=== PATIENT | male | born 1965 | race Caucasian/White ===

== ENCOUNTER 2023-07-07 09:40 | Outpatient (OUT) | payer OTHER, SELFPAY ==
[2023-07-07 10:12] LABS: Basophils Absolute Auto 0.1 10^3/uL (0.0-0.1); Basophils Percent Auto 1.3 % (0.2-2.0); Eosinophils Absolute Auto 0.3 10^3/uL (0.0-0.7); Eosinophils Percent Auto 4.1 % (0.9-7.0); Hematocrit 45.4 % (42.0-54.0); Hemoglobin 15.3 g/dL (14.0-18.0); Immature Granulocytes Abs Auto 0.01 10^3/uL (0.00-0.03); Immature Granulocytes Pct Auto 0.1 % (0.0-0.5); Lymphocytes Absolute Auto 1.9 10^3/uL (1.2-3.8); Lymphocytes Percent Auto 26.4 % (20.5-60.0); Mean Corpuscular HGB Conc 33.7 g/dL (29.9-35.2); Mean Corpuscular Hemoglobin 32.6 pg (25.9-34.0); Mean Corpuscular Volume 96.6 fL (80.0-94.0); Mean Platelet Volume 9.8 fL (9.5-13.5); Monocytes Absolute Auto 0.8 10^3/uL (0.3-0.8); Monocytes Percent Auto 11.3 % (1.7-12.0); Neutrophils Percent Auto 56.8 % (43.0-75.0); Platelet Count 192 10^3/uL (150-450); Red Cell Distribution Width 12.3 % (11.0-15.0)
[2023-07-07 10:14] LABS: Bilirubin Urine NEGATIVE (NEGATIVE); Blood Urine MODERATE (NEGATIVE); Clarity Urine CLEAR (CLEAR); Color Urine LT. YELLOW (YELLOW); Glucose Urine UA NEGATIVE (NEGATIVE); Ketones Urine NEGATIVE (NEGATIVE); Leukocyte Esterase Urine NEGATIVE (NEGATIVE); Nitrite Urine NEGATIVE (NEGATIVE); Protein Urine NEGATIVE (NEG/TRACE); Specific Gravity Urine >=1.030 (1.005-1.025); Urobilinogen Urine 0.2 EU/dL (0.2-1.0)
[2023-07-07 10:21] LABS: Urine Microscopic Indicated YES
[2023-07-07 10:32] LABS: Bacteria Urine NONE SEEN #/HPF (NONE SEEN); Mucus Urine TRACE (NONE SEEN); WBC Urine NONE SEEN #/HPF (NONE SEEN)
[2023-07-07 10:33] LABS: Squamous Epithelial Cell Urine FEW #/LPF (NONE/RARE)
[2023-07-07 10:36] LABS: Creatinine Urine Random 144.38 mg/dL (20.00-300.00); Microalbum Creatinine Ratio Ur 77.5 mg/g (0.0-29.9); Microalbumin Urine Random 11.2 mg/dL (<=30.0)
[2023-07-07 10:41] LABS: Alanine Aminotransferase 28 U/L (16-63); Albumin Globulin Ratio 1.2; Albumin Level 3.9 g/dL (3.4-5.0); Alkaline Phosphatase 46 U/L (46-116); Anion Gap 11.3; Aspartate Amino Transferase 14 U/L (15-37); BUN Creatinine Ratio 18.8; Bilirubin Total 0.4 mg/dL (0.2-1.0); Calcium 8.6 mg/dL (8.5-10.1); Carbon Dioxide 30.2 mmol/L (21.0-32.0); Chloride 104 mmol/L (98-107); Chol HDL Ratio 4.9; Cholesterol 170 mg/dL (<=200); Estimated GFR (African America >60 (>=60); Estimated GFR (Non-African Ame >60 (>=60); Globulin 3.2 g/dL; Glucose 116 mg/dL (74-106); HDL Cholesterol 35 mg/dL (40-60); Potassium 4.5 mmol/L (3.5-5.1); Sodium 141 mmol/L (136-145); Total Protein 7.1 g/dL (6.4-8.2); Triglycerides 250 mg/dL (<=150)
[2023-07-07 11:08] LABS: Prostate Specific Antigen Dx 0.42 ng/mL (<=4.00)
[2023-07-08 17:41] LABS: Estimated Average Glucose 117 mg/dL; Glycohemoglobin A1C 5.7 % (4.5-6.2)
== END 2023-07-07 09:41 | disposition home or self-care (01) ==
LOC: LAB 09:44
PROVIDERS: PCP Nurse Practitioner; Visit Provider Nurse Practitioner
DX: R31.29 Other microscopic hematuria (principal); I10 Essential (primary) hypertension; R73.03 Prediabetes; E78.1 Pure hyperglyceridemia; Z12.5 Encounter for screening for malignant neoplasm of prostate
CPT/HCPCS: 36415; 80053; 80061; 81001; 82043; 82570; 83036; 84153; 85025

== ENCOUNTER 2023-07-28 09:18 | Outpatient (OUT) | payer OTHER, SELFPAY ==
--- NOTE | 2023-07-28 09:23 | US_ITS ---
The [address] [address] Patient Name: JULIETA LIZARRAGA MRN: [id number] date: 1965 Sex: M Assigned Patient Location: US Current Patient Location: US Accession/Order Number: [id number] Exam Date: 07/28/2023 09:24 Report Date: 07/28/2023 09:54 At the request of: QUENTIN UMANA Procedure: US renal BI EXAM: US renal BI HISTORY: hematuria, microscopic R31.29 COMPARISON: None. TECHNIQUE: Real-time ultrasound imaging of the kidneys and bladder. Findings: The right and left kidneys measure 11.8 and 11.1 cm. There is good corticomedullary differentiation bilaterally. There are nonobstructing left renal stones. The largest measures 0.8 cm. There does appear to be obstructing stone within the left renal pelvis measuring 1.1 cm. There is mild left-sided collecting system dilatation. No focal mass or perinephric fluid collection. The bladder is partially distended limiting its evaluation. Otherwise, the bladder appears unremarkable. US/US renal BI IMPRESSION: 1. Nonobstructing left renal stones. There is also an obstructing stone within the renal pelvis with mild resultant collecting system dilatation. Electronically authenticated by: JEANE HECTOR Date: 07/28/2023 09:54
--- OUTSIDE RECORDS SUMMARY | 2023-07-28 09:23 | XMS_ITS | CCD ---
Author Name Unknown Address [address] [facility] [address] [place] [id number] Organization [facility] Care Team Providers Care Parcel Post Clerk Name Role Phone Non-Referral, Physician Unavailable Unavaila ble Non-Referral, Physician Unavailable Unavaila ble Non-Referral, Physician Unavailable Unavaila ble AICHHOLZ, MOSAIC TILER LIZETH Admitting Unavailable AICHHOLZ, MOSAIC TILER LIZETH Primary Care Unavailable AICHHOLZ, MOSAIC TILER LIZETH Consulting Unavailable AICHHOLZ, MOSAIC TILER LIZETH Attending Unavailable AICHHOLZ, MOSAIC TILER LIZETH Admitting Unavailable AICHHOLZ, MOSAIC TILER LIZETH Primary Care Unavailable AICHHOLZ, MOSAIC TILER LIZETH Consulting Unavailable AICHHOLZ, MOSAIC TILER LIZETH Attending Unavailable Aichholz CLASSIFIER, Lizeth Unavailable Lloyd Garrison MD Primary Care Provider LIZETH VAN Attending Unavailable Medications Current Medications Medication Drug Class(es) Dates Sig (Normalized) Sig (Original) aspirin 81 mg delayed release oral tablet (4 sources) Platelet Aggregation Inhibitor, Nonsteroidal Anti-inflammatory Drug take 1 tablet by mouth in the morning aspirin 81 MG EC tablet Take 1 tablet by mouth in the morning. 0 Active docosahexaenoic acid 120 mg / eicosapentaenoic acid 180 mg oral capsule (4 sources) take 2 capsules by mouth every twelve hours omega-3 (Fish Oil) 1000 MG capsule Take 2 capsules by mouth every 12 (twelve) hours 0 Active lisinopril 40 mg oral tablet (6 sources) Angiotensin Converting Enzyme Inhibitor Start: 06-22-2023 End: 06-29-2023 take 1 tablet by mouth in the morning, then take 1 tablet by mouth once daily lisinopril 40 MG tablet Indications: Essential (primary) hypertension (CMS/HCC) Take 1 tablet (40 mg) by mouth in the morning. TAKE 1 TABLET BY MOUTH DAILY. 90 tablet 1 06/29/2023 Active metFORMIN hydrochloride 500 mg oral tablet (6 sources) Biguanide Start: 06-22-2023 End: 09-27-2023 take 1 tablet by mouth in the morning, then take 1 tablet by mouth once daily metFORMIN (Glucophage) 500 MG tablet Indications: Prediabetes Take 1 tablet (500 mg) by mouth in the morning. TAKE 1 TABLET BY MOUTH DAILY. 90 tablet 1 06/29/2023 09/27/2023 Active Turmeric extract (4 sources) take 1 capsule by mouth in the morning TURMERIC PO Take 1 capsule by mouth in the morning. 0 Active ubidecarenone 30 mg oral capsule (4 sources) take 1 capsule by mouth in the morning co-enzyme Q-10 30 MG capsule Take 1 capsule by mouth in the morning. 0 Active Problems Problem Classification Problem Date Documented Da te Episodic/Chronic Diabetes mellitus without complication (11 sources) Prediabetes; Translations: [Prediabetes] Onset: 11-26-2021 Episodic Disorders of lipid metabolism (6 sources) Hypertriglyceridemi a; Translations: [Pure hyperglyceridemia] Onset: 06-29-2023 06-29-2023 Chronic Essential hypertension (9 sources) Essential (primary) hypertension; Translations: [Benign hypertension] Onset: 11-26-2021 06-29-2023 Chronic Genitourinary symptoms and ill-defined conditions (10 sources) Unspecified abnormal findings in urine; Translations: [Microscopic hematuria] Onset: 11-24-2021 Episodic Other nutritional; endocrine; and metabolic disorders (6 sources) Body mass index 30+ - obesity; Translations: [Obesity, unspecified] Onset: 06-29-2023 06-29-2023 Chronic Other screening for suspected conditions (not mental disorders or infectious disease) (7 sources) Encounter for screening for malignant neoplasm of prostate; Translations: [Patient encounter status] Onset: 11-26-2021 06-29-2023 Episodic Other upper respiratory disease (4 sources) Mass of respiratory structure; Translations: [Other diseases of pharynx] Onset: 06-29-2023 06-29-2023 Episodic Substance-related disorders (6 sources) Tobacco dependence syndrome; Translations: [Nicotine dependence, unspecified, uncomplicated] Onset: 06-29-2023 06-29-2023 Chronic Results Test Name Value Interpretation Reference Range Facility ALL CBC WITH AUTO DIFFon BASOPHILS ABSOLUTE AUTO 0.1 [facility] Basophils/100 WBC (Bld) 1.3 % 0.2 - 2.0 % [facility] Eosinophils/100 WBC (Bld) 4.1 % 0.9 - 7.0 % [facility] Erythrocyte distribution width (RBC) [Ratio] 12.3 % 11.0 - 15.0 % [facility] Hematocrit (Bld) [Volume fraction] 45.4 % 42.0 - 54.0 % [facility] Hemoglobin (Bld) [Mass/Vol] 15.3 g/dL 14.0 - 18.0 g/dL [facility] IMMATURE GRANULOCYTES ABS AUTO 0.01 [facility] Immature granulocytes/100 WBC (Bld) 0.1 % 0.0 - 0.5 % [facility] Interpretation and review of laboratory results Abnormal [facility] LYMPHOCYTES ABSOLUTE AUTO 1.9 [facility] Lymphocytes/100 WBC (Bld) 26.4 % 20.5 - 60.0 % [facility] MCH (RBC) [Entitic mass] 32.6 pg 25.9 - 34.0 pg [facility] MCHC (RBC) [Mass/Vol] 33.7 g/dL 29.9 - 35.2 g/dL [facility] MCV (RBC) [Entitic vol] 96.6 fL High 80.0 - 94.0 fL [facility] MONOCYTES ABSOLUTE AUTO 0.8 [facility] Monocytes/100 WBC (Bld) 11.3 % 1.7 - 12.0 % [facility] NEUTROPHILS ABSOLUTE AUTO 4.0 [facility] Neutrophils/100 WBC (Bld) 56.8 % 43.0 - 75.0 % [facility] Platelet mean volume (Bld) [Entitic vol] 9.8 fL 9.5 - 13.5 fL [facility] are [facility] EO # 0.3 [facility] PLT 192 [facility] RBC 4.70 [facility] WBC 7.0 [facility] GLYCOHEMOGLOBIN A1Con 2022 ADA RECOMMENDATION SEE BELOW Normal [facility] Comment on above: Result Comment: ADA RECOMMENDED LIMIT 4.0 - 6.0 ADA THERAPEUTIC TARGET < 7.0 ACTION SUGGESTED > 7.0 Performed By: #### A 1C #### [facility] [address] [place] [address] Dr. Abbi Porter Glucose [Mass/Vol] 114 mg/dL Normal [facility] Comment on above: Performed By: #### A 1C #### [facility] [address] [place] [address] Dr. Abbi Porter HbA1c (Bld) [Mass fraction] 5.6 % Normal 4.5-6.2 [facility] Comment on above: Performed By: #### A 1C #### [facility] [address] [place] [address] Dr. Abbi Porter CBC AUTO DIFFon 11-24-2021 BASO # 0.1 103/ul Normal 0.0-0.1 [facility] Comment on above: Performed By: #### C BC #### [facility] [address] [place] [address] Dr. Abbi Porter Basophils/100 WBC (Bld) 1.1 % Normal 0.2-2.0 [facility] Comment on above: Performed By: #### C BC #### [facility] [address] [place] [address] Dr. Abbi Porter EO # 0.2 103/ul Normal 0.0-0.7 [facility] Comment on above: Performed By: #### C BC #### [facility] [address] [place] [address] Dr. Abbi Porter Eosinophils/100 WBC (Bld) 3.7 % Normal 0.9-7.0 [facility] Comment on above: Performed By: #### C BC #### [facility] [address] [place] [address] Dr. Abbi Porter Erythrocyte distribution width (RBC) [Ratio] 12.8 % Normal 11.0-15.0 [facility] Comment on above: Performed By: #### C BC #### [facility] [address] [place] [address] Dr. Abbi Porter Hematocrit (Bld) [Volume fraction] 44.8 % Normal 42.0-54.0 [facility] Comment on above: Performed By: #### C BC #### [facility] [address] [address] [address] Abbi Porter Hemoglobin (Bld) [Mass/Vol] 15.3 g/dL Normal 14.0-18.0 [facility] Comment on above: Performed By: #### C BC #### [facility] [address] [address] [address] Abbi Porter IG # 0.01 10e3/ul Normal 0.00-0.03 [facility] Comment on above: Performed By: #### C BC #### [facility] [address] [place] [address] Dr. Abbi Porter IG % 0.2 % Normal 0.0-0.5 [facility] Comment on above: Performed By: #### C BC #### [facility] [address] [place] [address] Dr. Abbi oPrter LYMPH # 1.9 103/ul Normal 1.2-3.8 [facility] Comment on above: Performed By: #### C BC #### [facility] [address] [place] [address] Dr. Abbi Porter Lymphocytes/100 WBC (Bld) 28.4 % Normal 20.5-60.0 [facility] Comment on above: Performed By: #### C BC #### [facility] [address] [place] [address] Dr. Abbi Porter MANUAL DIFF REQ NO Normal [facility] Comment on above: Performed By: #### C BC #### [facility] [address] [place] [address] Dr. Abbi Porter MCH (RBC) [Entitic mass] 33.0 pg Normal 25.9-34.0 [facility] Comment on above: Performed By: #### C BC #### [facility] [address] [place] [address] Dr. Abbi Porter MCHC (RBC) [Mass/Vol] 34.2 g/dL Normal 29.9-35.2 [facility] Comment on above: Performed By: #### C BC #### [facility] [address] [address] [address] Abbi Porter MCV (RBC) [Entitic vol] 96.6 fL Critically high 80.0-94.0 [facility] Comment on above: Performed By: #### C BC #### [facility] [address] [address] [address] Abbi Porter MONO # 0.7 103/ul Normal 0.3-0.8 [facility] Comment on above: Performed By: #### C BC #### [facility] [address] [address] [address] Abbi Porter Monocytes/100 WBC (Bld) 10.7 % Normal 1.7-12.0 [facility] Comment on above: Performed By: #### C BC #### [facility] [address] [address] [address] Abbi Porter NEUT # 3.7 103/ul Normal 1.4-6.5 [facility] Comment on above: Performed By: #### C BC #### [facility] [address] [address] [address] Abbi Porter Neutrophils/100 WBC (Bld) 55.9 % Normal 43.0-75.0 [facility] Comment on above: Performed By: #### C BC #### [facility] [address] [address] [address] Abbi Porter Platelet mean volume (Bld) [Entitic vol] 10.6 fL Normal 9.5-13.5 [facility] Comment on above: Performed By: #### C BC #### [facility] [address] [address] [address] Abbi Porter PLT 233 103/ul Normal 150-450 [facility] Comment on above: Performed By: #### C BC #### [facility] [address] [address] [address] Abbi Porter RBC 4.64 106/ul Critically low 4.70-6.10 [facility] Comment on above: Performed By: #### C BC #### [facility] [address] [place] [address] Dr. Abbi Porter WBC 6.6 103/ul Normal 4.0-11.0 [facility] Comment on above: Performed By: #### C BC #### [facility] [address] [place] [address] Dr. Abbi Porter CULTURE URINEon 11-24-2021 CULTURE URINE Culture Observations: NO GROWTH. Normal [facility] Comment on above: Performed By: #### U RCX #### [facility] [address] [place] [address] Dr. Abbi Porter GLYCOHEMOGLOBIN A1Con 2021 ADA RECOMMENDATION SEE BELOW Normal [facility] Comment on above: Result Comment: ADA RECOMMENDED LIMIT 4.0 - 6.0 ADA THERAPEUTIC TARGET < 7.0 ACTION SUGGESTED > 7.0 Performed By: #### A 1C #### [facility] [address] [place] [address] Dr. Abbi Porter Glucose [Mass/Vol] 117 mg/dL Normal [facility] Comment on above: Performed By: #### A 1C #### [facility] [address] [place] [address] Dr. Abbi Porter HbA1c (Bld) [Mass fraction] 5.7 % Normal 4.5-6.2 [facility] Comment on above: Performed By: #### A 1C #### [facility] [address] [place] [address] Dr. Abbi Porter MICROALBUMIN, RAND URon 10-28 mALB 8.3 mg/L Normal <=30.0 [facility] Comment on above: Performed By: #### M ALBR #### [facility] [address] [place] [address] Dr. Abbi Porter PROF 14(COMP METB)on 022 Albumin [Mass/Vol] 4.2 g/dL Normal 3.4-5.0 [facility] Comment on above: Performed By: #### C MP #### [facility] [address] [place] [address] Dr. Abbi Porter Albumin/Globulin [Mass ratio] 1.4 {ratio} Normal [facility] Comment on above: Performed By: #### C MP #### [facility] [address] [address] [address] Abbi Porter ALP [Catalytic activity/Vol] 66 U/L Normal 46-116 [facility] Comment on above: Performed By: #### C MP #### [facility] [address] [address] [address] Abbi Porter ALT [Catalytic activity/Vol] 34 U/L Normal 16-63 [facility] Comment on above: Performed By: #### C MP #### [facility] [address] [address] [address] Abbi Porter Anion gap [Moles/Vol] 14.2 mmol/L Normal [facility] Comment on above: Performed By: #### C MP #### [facility] [address] [place] [address] Dr. Abbi Porter AST [Catalytic activity/Vol] 19 U/L Normal 15-37 [facility] Comment on above: Performed By: #### C MP #### [facility] [address] [place] [address] Dr. Abbi Porter Bilirubin [Mass/Vol] 0.4 mg/dL Normal 0.2-1.0 [facility] Comment on above: Performed By: #### C MP #### [facility] [address] [place] [address] Dr. Abbi Porter Calcium [Mass/Vol] 9.2 mg/dL Normal 8.5-10.1 [facility] Comment on above: Performed By: #### C MP #### [facility] [address] [place] [address] Dr. Abbi Porter Chloride [Moles/Vol] 103 mmol/L Normal 98-107 [facility] Comment on above: Performed By: #### C MP #### [facility] [address] [place] [address] Dr. Abbi Porter CO2 [Moles/Vol] 29.9 mmol/L Normal 21.0-32.0 [facility] Comment on above: Performed By: #### C MP #### [facility] [address] [address] [address] Abbi Porter Creatinine [Mass/Vol] 0.95 mg/dL Normal 0.70-1.30 [facility] Comment on above: Performed By: #### C MP #### [facility] [address] [address] [address] Abbi Porter EGFR-AF STATELESS >60 Normal >=60 [facility] Comment on above: Performed By: #### C MP #### [facility] [address] [address] [address] Abbi Porter EGFR-NON AF STATELESS >60 Normal >=60 [facility] Comment on above: Performed By: #### C MP #### [facility] [address] [place] [address] Dr. Abbi Porter Globulin (S) [Mass/Vol] 3.1 g/dL Normal [facility] Comment on above: Performed By: #### C MP #### [facility] [address] [place] [address] Dr. Abbi Porter Glucose [Mass/Vol] 111 mg/dL Critically high 74-106 [facility] Comment on above: Performed By: #### C MP #### [facility] [address] [place] [address] Dr. Abbi Porter Potassium [Moles/Vol] 4.1 mmol/L Normal 3.5-5.1 [facility] Comment on above: Performed By: #### C MP #### [facility] [address] [place] [address] Dr. Abbi Porter Protein [Mass/Vol] 7.3 g/dL Normal 6.4-8.2 [facility] Comment on above: Performed By: #### C MP #### [facility] [address] [place] [address] Dr. Abbi Porter Sodium [Moles/Vol] 143 mmol/L Normal 136-145 [facility] Comment on above: Performed By: #### C MP #### [facility] [address] [place] [address] Dr. Abbi Porter Urea nitrogen [Mass/Vol] 19.0 mg/dL Critically high 7.0-18.0 [facility] Comment on above: Performed By: #### C MP #### [facility] [address] [place] [address] Dr. Abbi Porter Urea nitrogen/Creatinine [Mass ratio] 20.0 mg/mg Normal [facility] Comment on above: Performed By: #### C MP #### [facility] [address] [address] [address] Abbi Porter UA RANDOM W/MICROSCOPICon BACTERIA NONE SEEN Normal NONE SEEN [facility] Comment on above: Performed By: #### U AMIC #### [facility] [address] [place] [address] Dr. Abbi Porter Bilirubin Ql (U) Negative Normal NEGATIVE [facility] Comment on above: Performed By: #### U AMIC #### [facility] [address] [place] [address] Dr. Abbi Porter CAST NONE SEEN Normal NONE SEEN [facility] Comment on above: Performed By: #### U AMIC #### [facility] [address] [place] [address] Dr. Abbi Porter Clarity (U) CLEAR Normal CLEAR [facility] Comment on above: Performed By: #### U AMIC #### [facility] [address] [place] [address] Dr. Abbi Porter Color (U) LT. YELLOW Normal YELLOW [facility] Comment on above: Performed By: #### U AMIC #### [facility] [address] [place] [address] Dr. Abbi Porter Crystals LM Nom (Urine sed) NONE SEEN Normal NONE SEEN [facility] Comment on above: Performed By: #### U AMIC #### [facility] [address] [place] [address] Dr. Abbi Porter Epithelial cells LM Ql (Urine sed) FEW Abnormal NONE SEEN /RARE [facility] Comment on above: Performed By: #### U AMIC #### [facility] [address] [place] [address] Dr. Abbi Porter Glucose Ql (U) Negative Normal NEGATIVE [facility] Comment on above: Performed By: #### U AMIC #### [facility] [address] [address] [address] Abbi Porter Hemoglobin Ql (U) LARGE Abnormal NEGATIVE [facility] Comment on above: Performed By: #### U AMIC #### [facility] [address] [address] [address] Abbi Porter Ketones Ql (U) Negative Normal NEGATIVE [facility] Comment on above: Performed By: #### U AMIC #### [facility] [address] [address] [address] Abbi Porter LEUKOCYTES TRACE Abnormal NEGATIVE [facility] Comment on above: Performed By: #### U AMIC #### [facility] [address] [address] [address] Abbi Porter MUCOUS NONE SEEN Normal NONE SEEN [facility] Comment on above: Performed By: #### U AMIC #### [facility] [address] [address] [address] Abbi Porter Nitrite Ql (U) Negative Normal NEGATIVE [facility] Comment on above: Performed By: #### U AMIC #### [facility] [address] [address] [address] Abbi Porter pH (U) 5.5 [pH] Normal 5-9 [facility] Comment on above: Performed By: #### U AMIC #### [facility] [address] [address] [address] Abbi Porter RBC 0-2 Normal 0-2 [facility] Comment on above: Performed By: #### U AMIC #### [facility] [address] [address] [address] Abbi Porter SPEC GRAVITY 1.025 Normal 1.005-<=1.025 [facility] Comment on above: Performed By: #### U AMIC #### [facility] [address] [address] [address] Abbi Porter UA PROTEIN Negative Normal NEGATIVE/ TRACE [facility] Comment on above: Performed By: #### U AMIC #### [facility] [address] [address] [address] Abbi Porter Urobilinogen Qn (U) 0.2 {Candice'U}/dL Normal 0.2 - 1. 0 [facility] Comment on above: Performed By: #### U AMIC #### [facility] [address] [address] [address] Abbi Porter WBC 10-20 Abnormal NONE SEEN [facility] Comment on above: Performed By: #### U AMIC #### [facility] [address] [address] [address] Abbi Porter AMYLASEon 06-04-2019 Amylase [Catalytic activity/Vol] 86 U/L Normal 28-100 [facility] Comment on above: Performed By: #### 4 [id number] #### [address] [address] CBC and diff (cpt 56804)on 0 06-04-2019 Basophils (Bld) [#/Vol] 0.03 10*3/uL Normal 0.00-0.07 [facility] Comment on above: Performed By: #### 4 [id number] #### [address] [address] Basophils/100 WBC (Bld) 0.4 % Normal 0.0-2.0 [facility] Comment on above: Performed By: #### 4 [id number] #### [address] [address] Eosinophils (Bld) [#/Vol] 0.21 10*3/uL Normal 0.00-0.47 [facility] Comment on above: Performed By: #### 4 [id number] #### [address] [address] Eosinophils/100 WBC (Bld) 2.7 % Normal 0.0-7.0 [facility] Comment on above: Performed By: #### 4 [id number] #### [address] [address] Erythrocyte distribution width (RBC) [Ratio] 13.1 % Normal 11.5-14.0 [facility] Comment on above: Performed By: #### 4 [id number] #### [address] [address] Hematocrit (Bld) [Volume fraction] 42.2 % Normal 36.0-52.0 [facility] Comment on above: Performed By: #### 4 [id number] #### [address] [address] Hemoglobin (Bld) [Mass/Vol] 14.6 g/dL Normal 12.2-18.0 [facility] Comment on above: Performed By: #### 4 [id number] #### [address] [address] Immature granulocytes (Bld) [#/Vol] 0.02 10*3/uL Normal 0.00-0.06 [facility] Comment on above: Performed By: #### 4 #### [address] [address] Immature granulocytes/100 WBC (Bld) 0.3 % Normal 0.0-1.0 [facility] Comment on above: Performed By: #### 4 [id number] #### [address] [address] Lymphocytes (Bld) [#/Vol] 2.10 10*3/uL Normal 0.98-3.82 [facility] Comment on above: Performed By: #### 4 [id number] #### [address] [address] Lymphocytes/100 WBC (Bld) 27.5 % Normal 20.0-45.0 [facility] Comment on above: Performed By: #### 4 [id number] #### [address] [address] MCH (RBC) [Entitic mass] 32.4 pg Normal 27.0-34.0 [facility] Comment on above: Performed By: #### 4 [id number] #### [address] [address] MCHC (RBC) [Mass/Vol] 34.6 g/dL Normal 33.0-37.0 [facility] Comment on above: Performed By: #### 4 #### [address] [address] MCV (RBC) [Entitic vol] 94 fL Normal 80-100 [facility] Comment on above: Performed By: #### 4 #### [address] [address] Monocytes (Bld) [#/Vol] 0.64 10*3/uL Normal 0.28-0.96 [facility] Comment on above: Performed By: #### 4 [id number] #### [address] [address] Monocytes/100 WBC (Bld) 8.4 % Normal 2.0-12.0 [facility] Comment on above: Performed By: #### 4 [id number] #### [address] [address] Neutrophils (Bld) [#/Vol] 4.64 10*3/uL Normal 1.67-7.79 [facility] Comment on above: Performed By: #### 4 #### [address] [address] Neutrophils/100 WBC (Bld) 60.7 % Normal 40.0-65.0 [facility] Comment on above: Performed By: #### 4 #### [address] [address] Platelets (Bld) [#/Vol] 185 10*3/uL Normal 120-400 [facility] Comment on above: Performed By: #### 4 #### [address] [address] RBC (Bld) [#/Vol] 4.51 10*6/uL Normal 4.00-5.70 [facility] Comment on above: Performed By: #### 4 [id number] #### [address] [address] WBC (Bld) [#/Vol] 7.64 10*3/uL Normal 3.80-10.00 [facility] Comment on above: Performed By: #### 4 [id number] #### [address] [address] COMPREHENSIVE MET PANELon Albumin [Mass/Vol] 4.50 g/dL Normal 3.50-5.20 [facility] Comment on above: Performed By: #### 4 [id number] #### [address] [address] Albumin/Globulin [Mass ratio] 1.7 Normal 0.8-2.4 [facility] Comment on above: Performed By: #### 4 [id number] #### [address] [address] ALP [Catalytic activity/Vol] 60 U/L Normal 40-130 [facility] Comment on above: Performed By: #### 4 [id number] #### [address] [address] ALT No additional P-5'-P [Catalytic activity/Vol] 30 [iU]/L Normal <41 [facility] Comment on above: Performed By: #### 4 [id number] #### [address] [address] Anion gap [Moles/Vol] 17 mmol/L Normal 9-20 [facility] Comment on above: Performed By: #### 4 [id number] #### [address] [address] AST [Catalytic activity/Vol] 24 U/L Normal <40 [facility] Comment on above: Performed By: #### 4 [id number] #### [address] [address] Bilirubin [Mass/Vol] 0.19 mg/dL Normal <1.20 [facility] Comment on above: Performed By: #### 4 [id number] #### [address] [address] Calcium [Mass/Vol] 9.5 mg/dL Normal 8.6-10.0 [facility] Comment on above: Performed By: #### 4 [id number] #### [address] [address] Chloride [Moles/Vol] 101.3 mmol/L Normal 98.0-107.0 [facility] Comment on above: Performed By: #### 4 [id number] #### [address] [address] Creatinine [Mass/Vol] 0.88 mg/dL Normal 0.67-1.17 [facility] Comment on above: Performed By: #### 4 [id number] #### [address] [address] GFR/1.73 sq M.predicted MDRD (S/P/Bld) [Vol rate/Area] mL/min/{1.73_m2} Normal [facility] Comment on above: Result Comment: Glom erular Filtration Rate (eGFR) eGFR units: mL/min/1.73 m^2 Reference Value: >/= 60 mL/min/1.73 m^2 For patients, multiply the eGFR by 1.212 . The MDRD eGFR equation has not been validated for patients < 18 yrs or > 70 yrs of age and is useful only if renal function is stable. The eGFR is not recommended for women, patients with serious co-morbid conditions, hospitalized patients, obese or malnourished patients, amputees, those with muscle-wasting diseases or on a vegetarian diet or diet supplemented with creatine. For more information, go to www.kidney.org or www. niddk.nih.gov Performed By: #### 4 [id number] #### [address] [address] Glucose [Mass/Vol] 123 mg/dL High 74-106 [facility] Comment on above: Performed By: #### 4 [id number] #### [address] [address] HCO3 [Moles/Vol] 25.2 mmol/L Normal 22.0-29.0 [facility] Comment on above: Performed By: #### 4 [id number] #### [address] [address] Potassium [Moles/Vol] 4.71 mmol/L Normal 3.40-5.10 [facility] Comment on above: Performed By: #### 4 [id number] #### [address] [address] Protein [Mass/Vol] 7.1 g/dL Normal 6.4-8.3 [facility] Comment on above: Performed By: #### 4 [id number] #### [address] [address] Sodium [Moles/Vol] 139 mmol/L Normal 136-145 [facility] Comment on above: Performed By: #### 4 [id number] #### [address] [address] Urea nitrogen [Mass/Vol] 16.4 mg/dL Normal 6.0-20.0 [facility] Comment on above: Performed By: #### 4 [id number] #### [address] [address] CRP (inflammation) cpt 45608 on 06-04-2019 CRP [Mass/Vol] 5.7 mg/L High <5.0 [facility] Comment on above: Performed By: #### 4 [id number] #### [address] [address] [address] ABD PELVISon 06-04-2019 CT ABD PELVIS ---------NAME------- -- NUMBER SEX AGE ADMIT DISC. XRAY# F/C TYPE ZIA Yeung [id number] M 54 06/04/19 [id number] [facility] E/R DATE OF : 1965 M/R# [id number] #: [id number] ED-06 LOCATION: EMERGENCY DEPT TRANSCRIBED: 06/04/19 12:[address] ABD PELVIS [id number] COMPLETED:06/04/19 12:21 KLK [id number] Reason(s): Abdominal Pain Flank Pain PHYSICIAN: BON UMAÑA PHYS W A Y N E H E A L T H C A R E R A D I O L O G Y R E P O R T [address] [place] [address] PROCEDURE: CT ABD PELVIS DATE OF EXAM: 06/04/2019 12:02 PM DEMOGRAPHICS: 54 years old Male INDICATION: REASON(S): ABDOMINAL PAIN FLANK PAIN CT ABD PELVIS COMPARISON: No existing relevant imaging study corresponding to the same anatomical region is available. TECHNIQUE: Contiguous axial slices of the abdomen and pelvis were submitted without IV administration of contrast. No oral contrast was utilized. Additional coronal reformatted images were submitted. DOSE OPTIMIZATION: CT radiation dose optimization techniques (automated exposure control, and use of iterative reconstruction techniques, or adjustment of the mA and/or kV according to patient size) were used to limit patient radiation dose. FINDINGS: CT ABDOMEN: Inferior chest: The lung bases are clear. The heart size is normal. There is no pericardial or pleural effusion. Gallbladder: The gallbladder is distended with a smooth thin wall. Biliary tree: There is no evidence for intra-or extrahepatic biliary ductal dilatation. Liver: There is hypoattenuation identified in the hepatic parenchyma. No focal abnormality is seen. Spleen: Normal size and morphology is seen. No masses are identified. Pancreas: Normal morphology without masses or inflammatory changes. Adrenals: Normal size without masses. Kidneys: There is mild left hydronephrosis. There is a radiopaque calculus identified at the level of the left ureteropelvic junction as seen on axial image #37 of series #2 measuring 5 mm in diameter. Vasculature: There is vascular calcification. Lymphatic system: No pathologically enlarged lymph nodes are seen. Bowel: The stomach is normally distended with no focal wall abnormality. The duodenum is normal in caliber along its course. No focal abnormality is seen. The small bowel is normal caliber. There is no focal stricture or dilatation. The colon is normal in caliber. No focal abnormality is seen. The appendix is seen and is normal. Peritoneal structures: No evidence of free air or free fluid. No masses. The omentum and small bowel mesentery are normal. Retroperitoneum: No focal retroperitoneal abnormality is seen. Abdominal wall: There is evidence for a fat-containing umbilical hernia. CT PELVIS: Urinary bladder: The urinary bladder is distended with a smooth thin wall. No focal abnormalities are seen. Soft tissues: No other significant abnormalities in the pelvic structures. No free fluid or lymphadenopathy. The ischiorectal fossa and inguinal regions are normal. Bones: Mild degenerative changes are seen in the lumbar spine. IMPRESSION: 1. There is obstructive uropathy on the left related to a 5 mm calculus at the left ureteropelvic junction causing mild left hydronephrosis 2. Hepatic steatosis 3. Fat-containing umbilical hernia This dictation was created with voice recognition software. While attempts have been made to review the dictation as it is transcribed, on occasion the spoken word can be misinterpreted by the technology leading to omissions or inappropriate words, phrases or sentences. Signed By : HERNAN LAMBERT MD 06/04/2019 12:36 PM Normal [facility] LIPASEon 06-04-2019 Lipase [Catalytic activity/Vol] 38 U/L Normal 13-60 [facility] Comment on above: Performed By: #### 4 [id number] #### [place] [address] URINALYSIS reflex CULTUREon 06-04-2019 Bacteria LM Ql (Urine sed) TRACE Abnormal NONE SEEN [facility] Comment on above: Performed By: #### 4 [id number] #### [place] [address] Bilirubin Ql (U) Negative Normal NEGATIVE [facility] Comment on above: Performed By: #### 4 [id number] #### [address] [address] Clarity Refractometry automated (U) CLEAR Normal CLEAR [facility] Comment on above: Performed By: #### 4 [id number] #### [address] [address] Color (U) YELLOW Normal YELLOW [facility] Comment on above: Performed By: #### 4 [id number] #### [place] [address] Epithelial cells.squamous LM.HPF (Urine sed) [#/Area] 7-10 Normal [facility] Comment on above: Performed By: #### 4 [id number] #### [address] [address] Glucose Ql (U) 250 mg/dL Abnormal NEGATIVE [facility] Comment on above: Performed By: #### 4 [id number] #### [address] [address] Hemoglobin Auto test strip Ql (U) MODERATE Abnormal NEGATIVE [facility] Comment on above: Performed By: #### 4 [id number] #### [address] [address] Ketones Ql (U) Negative Normal NEGATIVE [facility] Comment on above: Performed By: #### 4 [id number] #### [place] [id number] Leukocyte esterase Auto test strip Ql (U) Negative Normal NEGATIVE [facility] Comment on above: Performed By: #### 4 [id number] #### [place] [address] Mucus Ql (Urine sed) 1+ [LPF] Normal [facility] Comment on above: Performed By: #### 4 [id number] #### [place] [address] Nitrite Ql (U) Negative Normal NEGATIVE [facility] Comment on above: Performed By: #### 4 [id number] #### [place] [address] pH (U) 5.5 Normal 5-8 [facility] Comment on above: Performed By: #### 4 [id number] #### [place] [address] Protein Ql (U) Negative Normal NEGATIVE [facility] Comment on above: Performed By: #### 4 [id number] #### [place] [address] RBC LM.HPF (Urine sed) [#/Area] 15-20 Abnormal 0-2 [facility] Comment on above: Performed By: #### 4 [id number] #### [place] [address] Specific gravity (U) [Rel density] >=1.030 Abnormal <=1.005-1.025 [facility] Comment on above: Performed By: #### 4 [id number] #### [place] [address] Type of Urine collection method CLEAN CATCH-CC Normal [facility] Comment on above: Performed By: #### 4 [id number] #### [place] [address] URINALYSIS reflex CULTURE [facility] Comment on above: Result Comment: URIN ALYSIS with Reflex to CULTURE Performed By: #### 4 [id number] #### [place] [address] Urobilinogen Test strip Ql (U) 0.2 {EhrlichU}/dL Normal 0.2-1.0 [facility] Comment on above: Performed By: #### 4 [id number] #### [place] [address] WBC LM.HPF (Urine sed) [#/Area] 4-6 Abnormal 0-3 [facility] Comment on above: Performed By: #### 4 [id number] #### [facility] [address] [place] [address] Vital Signs Date Time Vital Sign Value Performing Clinician Jagruti montilla 06-29-2023 18:14-0500 Body height 172.7 cm Lizethkemar Delatorreshilpiz CLASSIFIER Work Phone: [facility] 06-29-2023 18:14-0500 Body mass index (BMI) [Ratio] 32.39 kg/m2 Lizeth Lucretiaholz CLASSIFIER Work Phone: [facility] 06-29-2023 18:14-0500 Body temperature 97.5 [degF] Lizeth Lucretiaholz CLASSIFIER Work Phone: [facility] 06-29-2023 18:14-0500 Body weight 96.62 kg Lizethkemar Boykinholz CLASSIFIER Work Phone: [facility] 06-29-2023 18:14-0500 Diastolic blood pressure 70 mm[Hg] Lizeth Juan Ramonhholz CLASSIFIER Work Phone: [facility] 06-29-2023 18:14-0500 Heart rate 80 /min Lizeth Juan Ramonhholz CLASSIFIER Work Phone: [facility] 06-29-2023 18:14-0500 Respiratory rate 19 /min Lizeth Lucretiaholz CLASSIFIER Work Phone: [facility] 06-29-2023 18:14-0500 SaO2% (BldA) [Mass fraction] 96 % Lizeth Lucretiaholz CLASSIFIER Work Phone: [facility] 06-29-2023 18:14-0500 Systolic blood pressure 120 mm[Hg] Lizeth Aichholz CLASSIFIER Work Phone: [facility] Healthcare Encounters Encounter Date Encounter Type Care Provider Facility Start: 07-07-2023 Clinisync Result Encounter Lizeth Rehan CLASSIFIER Work Phone: [facility] External Department Unsolicited Start: 07-07-2023 Clinisync Result Encounter Lizethkemar Van CLASSIFIER Work Phone: [facility] External Department Unsolicited Start: 06-29-2023 End: 06-29-2023 ambulatory LIZETH REHAN Not Available Start: 06-29-2023 End: 06-29-2023 Office outpatient visit 25 minutes Lizeth Van CLASSIFIER Work Phone: [facility] Comment on above: Hypertension, benign (CMS/HCC) (Primary Dx); Hematuria, microscopic; Prediabetes; BMI 32.0-32.9,adult; Hypertriglyceridemia (CMS/HCC); Tobacco dependence; Screening for prostate cancer; Essential (primary) hypertension (CMS/HCC) Start: 06-29-2023 Bamboo flowsheet Lizeth Van CLASSIFIER Work Phone: [facility] Start: 06-29-2023 Bamboo flowsheet Lizeth Van CLASSIFIER Work Phone: [facility] Start: 06-23-2022 End: 06-24-2022 ambulatory OUSMANE VAN Facility:[facility] Start: 11-24-2021 End: 11-25-2021 ambulatory MOSAIC TILER LIZETH VAN Facility:[facility] Start: 11-20-2017 Ambulatory Physician Non-Referral [facility] Procedures Date Procedure Procedure Detail Performing Clinician Start: 07-07-2023 ALL CBC WITH AUTO DIFF Lizeth Van CLASSIFIER Work Phone: Start: 11-24-2021 PSA screening OUSMANE VAN Comment on above: Performed By: #### P [facility] #### [facility] [address] [place] [address] Dr. Abbi Porter Plan of Treatment Date Care Activity Detail Author Start: 02-27-2024 Screening for malignant neoplasm of colon [facility] Start: 01-01-2024 End: 01-01-2024 Patient encounter procedure 01/01/2024 7:20 PM EDT Office Visit [facility] [address] [place] [id number] Lizeth Van NP [address] [place] [id number] [facility] Start: 06-29-2023 End: 06-29-2023 Patient encounter procedure 06/29/2023 6:15 PM EST Office Visit [facility] [address] [place] [address] Lizeth Van NP [address] [place] [address] Hypertension, benign (CMS/HCC) (Primary Dx); Hematuria, microscopic; Prediabetes; Obesity with body mass index (BMI) of 30.0 to 39.9; Hypertriglyceridemia (CMS/HCC); Tobacco dependence; Screening for prostate cancer [facility] Comment on above: Hypertension, benign (CMS/HCC) (Primary Dx); Hematuria, microscopic; Prediabetes; Obesity with body mass index (BMI) of 30.0 to 39.9; Hypertriglyceridemia (CMS/HCC); Tobacco dependence; Screening for prostate cancer Start: 06-29-2023 End: 06-29-2024 CBC W Auto Differential panel - Blood CBC and differential Lab Routine Hematuria, microscopic Expected: 06/29/2023 (Approximate), Expires: 06/29/2024 [facility] Work Phone: Comment on above: Expected: 06/29/2023 (Approximate), Expi res: 06/29/2024 Start: 06-29-2023 End: 06-29-2024 Comprehensive metabolic 2000 panel - Serum or Plasma Comprehensive metabolic panel Lab Routine Hypertension, benign (CMS/HCC) Hematuria, microscopic Prediabetes Hypertriglyceridemia (CMS/HCC) Expected: 06/29/2023 (Approximate), Expires: 06/29/2024 [facility] Comment on above: Expected: 06/29/2023 (Approximate), Expi res: 06/29/2024 Start: 06-29-2023 End: 06-29-2024 Lipid 1996 panel - Serum or Plasma Lipid panel Lab Routine Prediabetes Hypertriglyceridemia (CMS/HCC) Expected: 06/29/2023 (Approximate), Expires: 06/29/2024 [facility] Comment on above: Expected: 06/29/2023 (Approximate), Expi res: 06/29/2024 Start: 06-29-2023 End: 06-29-2024 Microalbumin/Creatinin e panel in random Urine Microalbumin / creatinine, urine ratio Lab Routine Hypertension, benign (CMS/HCC) Prediabetes Expected: 06/29/2023 (Approximate), Expires: 06/29/2024 [facility] Comment on above: Expected: 06/29/2023 (Approximate), Expi res: 06/29/2024 Start: 06-29-2023 End: 06-29-2024 Prostate specific Ag [Mass/volume] in Serum or Plasma PSA Lab Routine Screening for prostate cancer Expected: 06/29/2023 (Approximate), Expires: 06/29/2024 [facility] Comment on above: Expected: 06/29/2023 (Approximate), Expi res: 06/29/2024 Start: 06-29-2023 End: 06-29-2024 Urinalysis complete panel - Urine Urinalysis with reflex microscopic (clean catch) Lab Routine Hypertension, benign (CMS/HCC) Hematuria, microscopic Prediabetes Expected: 06/29/2023 (Approximate), Expires: 06/29/2024 [facility] Comment on above: Expected: 06/29/2023 (Approximate), Expi res: 06/29/2024 Start: 01-27-2023 Influenza vaccination Influenza Vaccine (#1) [facility] Start: 1965 Screening for malignant neoplasm of colon [facility] Payers Date Payer Category Payer Unknown BCBS BCBS xxxxxx [id number] 2018-Present [phone] [address] [place] [address] [id number] 1965 Unknown [id number] 1965 Unknown [id number] 1965 Unknown [id number] 1957 Unknown [id number] Social History Date Type Detail Facility Tobacco smoking status [facility]PO[place] [place] tobacco dipper smoking consumption unknown [facility] Start: 06-22-2023 End: 06-29-2023 [facility] Start: 06-22-2023 End: 06-29-2023 Humiliation, Afraid, Rape, and Kick questionnaire [HARK] [facility] Within the last year , have you been afraid of your partner or ex-partner? No [facility] Do you belong to any clubs or organizations such as congregational groups, unions, [employer] ([place]) or athletic groups, or school groups? Yes [facility] Are you now , , , , never or living with a partner? [facility] How often to you hav e a drink containing alcohol? 2-4 times a month [facility] How many standard dr inks containing alcohol do you have on a typical day? 3 or 4 [facility] How often do you hav e 6 or more drinks on 1 occasion? Less than monthly [facility] How hard is it for y ou to pay for the very basics like food, housing, medical care, and heating Not hard at all [facility] Do you feel stress - tense, restless, nervous, or anxious, or unable to sleep at night because your mind is troubled all the time - these days [OSQ] Not at all [facility] (I/We) worried sandy er (my/our) food would run out before (I/we) got money to buy more. Never true [facility] Start: 1965 Sex Assigned At Not on file [facility] Start: 06-15-2023 Gender identity Identifies as male gender (finding) [facility] Start: 06-29-2023 Tobacco smoking status NVIS Smokes t obacco daily [facility] History of tobacco use Cigarette Smoker [facility] Start: 06-29-2023 Tobacco use and exposure Smoke less tobacco non-user [facility] Start: 06-29-2023 Alcohol intake Ex-drinker (finding) [facility] Start: 06-29-2023 Alcohol Comment caffine: richard e 2-3 daily [facility] Healthcare History of Present illness Narrative 06-29-2023 Lizeth Van NP - 06/29/2023 6:46 PM Asif Van NP - 06/29/2023 6:45 PM RYAN BRIZUELA - 06/29/2023 6:15 PM Asif Van NP - 06/29/2023 6:15 PM EST Note Date & Type Note Facility 06-29-2023 History of Presen t illness Narrative Associated Problem(s): Prediabetes Check blood sugars daily, notify if <70 or >200. Take medications (pills or insulin) as directed. Monitor for s/s of hypoglycemia (sweaty, dizziness, nausea, vomiting, or shakiness). Watch for increase in thirst, urination, or appetite. Inspect feet frequently monitoring for open wounds , and also recommend yearly eye exam. Pt should attempt to remain as physically active as chronic conditions allow, as well as trying to follow a diet low in carbohydrates, and simple sugars. Check labs Associated Problem(s): Hypertension, benign (CMS/HCC) No changes in med dose at this time Check labs BS 102 before coming in Images from the original note were not included. Jaun Anjana Finch Jr. is a 58 y.o. male presents with chief complaint of No chief complaint on file. HPI: Diabetes He presents for his follow-up diabetic visit. He has type 2 diabetes mellitus. His disease course has been stable. There are no hypoglycemic associated symptoms. Pertinent negatives for hypoglycemia include no dizziness, nervousness/anxiousness, seizures or tremors. Pertinent negatives for diabetes include no chest pain, no polydipsia, no polyphagia, no polyuria, no visual change and no weakness. There are no hypoglycemic complications. Symptoms are stable. There are no diabetic complications. Risk factors for coronary artery disease include diabetes mellitus, male sex, obesity and tobacco exposure. Current diabetic treatment includes oral agent (monotherapy). He is compliant with treatment all of the time. An EMERSON inhibitor/angiotensin II receptor faye is being taken. He does not see a meter setter.Eye exam is current. Hypertension This is a chronic problem. The current episode started more than 1 year ago. The problem is unchanged. The problem is controlled. Pertinent negatives include no chest pain, neck pain, palpitations, peripheral edema, PND or shortness of breath. There are no associated agents to hypertension. Risk factors for coronary artery disease include diabetes mellitus, male gender, obesity and smoking/tobacco exposure. Past treatments include EMERSON inhibitors. The current treatment provides significant improvement. There are no compliance problems. SUBJECTIVE: MEDICATIONS: Current Outpatient Medications Medication Instructions aspirin 81 MG EC tablet 1 tablet, Oral, Daily co-enzyme Q-10 30 MG capsule 1 capsule, Oral, Daily lisinopril 40 mg, Oral, Daily metFORMIN (GLUCOPHAGE) 500 mg, Oral, Daily omega-3 (Fish Oil) 1000 MG capsule 2 capsules, Oral, Every 12 hours TURMERIC PO 1 capsule, Oral, Daily ALLERGIES: No Known Allergies REVIEW OF SYMPTOMS: Review of Systems Constitutional: Negative for activity change, appetite change and unexpected weight change. HENT: Negative for ear pain, nosebleeds, sneezing, trouble swallowing and voice change. Eyes: Negative for pain, discharge and visual disturbance. Respiratory: Negative for apnea, chest tightness, shortness of breath and wheezing. Cardiovascular: Negative for chest pain, palpitations, leg swelling and PND. Gastrointestinal: Negative for abdominal distention, blood in stool, constipation and diarrhea. Genitourinary: Negative for decreased urine volume, difficulty urinating, dysuria and hematuria. Musculoskeletal: Negative for neck pain. Skin: Negative for color change. Neurological: Negative for dizziness, tremors, seizures and weakness. Psychiatric/Behavioral: Negative for agitation, decreased concentration, hallucinations, self-injury and suicidal ideas. The patient is not nervous/anxious. Hematological: Negative for adenopathy. Does not bruise/bleed easily. Endocrine: Negative for cold intolerance, heat intolerance, polydipsia, polyphagia and polyuria. Allergic/Immunologic: Negative for environmental allergies and food allergies. PAST MEDICAL HISTORY Past Medical History: Diagnosis Date Hematuria, microscopic Hypertension, benign (CMS/HCC) Hypertriglyceridemia (CMS/HCC) 06/29/2023 TRig-294 HDL-32 LDL-86 Inclusion cyst of breast Left breast lump Mass of pharynx Obesity with body mass index (BMI) of 30.0 to 39.9 Prediabetes Tobacco dependence Past Surgical History: Procedure Laterality Date TONSILLECTOMY family history includes Diabetes in his father and sister; Heart disease in his father, maternal grandfather, and maternal grandmother. OBJECTIVE: Visit Vitals BP 144/76 (BP Location: Left arm, Patient Position: Sitting, BP Cuff Size: Adult long) Pulse 80 Temp 97.5 F (Temporal) Resp 19 Ht 5' 8 Wt 213 lb SpO2 96% BMI 32.39 kg/m Smoking Status Every Day BSA 2.15 m Physical Exam Constitutional: Appearance: Normal appearance. HENT: Head: Normocephalic. Right Ear: Tympanic membrane, ear canal and external ear normal. Left Ear: Tympanic membrane, ear canal and external ear normal. Nose: Nose normal. No congestion or rhinorrhea. Mouth/Throat: Mouth: Mucous membranes are moist. Pharynx: Oropharynx is clear. Eyes: Extraocular Movements: Extraocular movements intact. Conjunctiva/sclera: Conjunctivae normal. Neck: Vascular: No carotid bruit. Cardiovascular: Rate and Rhythm: Normal rate and regular rhythm. Pulses: Normal pulses. Heart sounds: Normal heart sounds. Pulmonary: Effort: Pulmonary effort is normal. Breath sounds: Normal breath sounds. Abdominal: General: Bowel sounds are normal. Palpations: Abdomen is soft. Musculoskeletal: Cervical back: Neck supple. Right lower leg: No edema. Left lower leg: No edema. Skin: General: Skin is warm and dry. Capillary Refill: Capillary refill takes 2 to 3 seconds. Neurological: General: No focal deficit present. Mental Status: He is alert. Psychiatric: Mood and Affect: Mood normal. Behavior: Behavior normal. Thought Content: Thought content normal. Judgment: Judgment normal. ASSESSMENT AND PLAN: No follow-ups on file. Problem List Items Addressed This Visit Hypertension, benign (CMS/HCC) - Primary No changes in med dose at this time Check labs Relevant Orders Comprehensive metabolic panel Urinalysis with reflex microscopic (clean catch) Microalbumin / creatinine, urine ratio Hematuria, microscopic Relevant Orders CBC and differential Comprehensive metabolic panel Urinalysis with reflex microscopic (clean catch) Prediabetes Check blood sugars daily, notify if <70 or >200. Take medications (pills or insulin) as directed. Monitor for s/s of hypoglycemia (sweaty, dizziness, nausea, vomiting, or shakiness). Watch for increase in thirst, urination, or appetite. Inspect feet frequently monitoring for open wounds , and also recommend yearly eye exam. Pt should attempt to remain as physically active as chronic conditions allow, as well as trying to follow a diet low in carbohydrates, and simple sugars. Check labs Relevant Medications metFORMIN (Glucophage) 500 MG tablet Other Relevant Orders Comprehensive metabolic panel Urinalysis with reflex microscopic (clean catch) Microalbumin / creatinine, urine ratio Lipid panel BMI 32.0-32.9,adult Tobacco dependence Hypertriglyceridemia (CMS/HCC) Relevant Orders Comprehensive metabolic panel Lipid panel Screening for prostate cancer Relevant Orders PSA Other Visit Diagnoses Essential (primary) hypertension (CMS/HCC) Relevant Medications lisinopril 40 MG tablet documented in this encounter [facility] Healthcare Evaluation note Note Date & Type Note Facility Evaluation note Diagnosis Hypertension, benign (CMS/HCC)- Primary Essential hypertension, benign Hematuria, microscopic Microscopic hematuria Prediabetes Other abnormal glucose BMI 32.0-32.9,adult Hypertriglyceridemia (CMS/HCC) Pure hyperglyceridemia Tobacco dependence Tobacco use disorder Screening for prostate cancer Special screening for malignant neoplasm of prostate Essential (primary) hypertension (CMS/HCC) Unspecified essential hypertension documented in this encounter [facility] Healthcare Summary Purpose Family History No Family History Records FoundNo Family History Records FoundNo Family History Records FoundNo Family History Records Found Advance Directives No Advanced Directives Records FoundNo Advanced Directives Records FoundNo Advanced Directives Records FoundNo Advanced Directives Records Found Additional Source Comments (unrecognized sect ion and content) No Status Records FoundNo Status Records FoundNo Status Records FoundNo Status Records Found INFORMATION SOURCE (unrecogn ized section and content) DATE CREATED AUTHOR 11/21/2017 [facility] DATE CREATED AUTHOR AUTHOR'S ORGANIZ ATION 06/06/2019 [facility] DATE CREATED AUTHOR AUTHOR'S ORGANIZ ATION 06/25/2022 [facility] DATE CREATED AUTHOR AUTHOR'S ORGANIZ ATION 07/01/2023 [facility] Care Teams (unrecognized sec tion and content) [employer] Relationship Specialty Start Date End Date Lloyd Garrison MD [address] [place] [phone] PCP - General Family Medicine 06/23/23 Lizeth Van NP [address] [place] [phone] Referring Physician Nurse Practitioner 12/12/22 [employer] Relationship Specialty Start Date End Date Lloyd Garrison MD [address] [place] [phone] PCP - General Family Medicine 06/23/23 Lizeth Van NP [address] [place] [phone] Referring Physician Nurse Practitioner 12/12/22 [employer] Relationship Specialty Start Date End Date Lloyd Garrison MD [address] [place] [phone] PCP - General Family Medicine 06/23/23 Lizeth Van NP [address] [place] [phone] Referring Physician Nurse Practitioner 12/12/22 FOR RECORDS PERTAINING TO PATIENTS WHO ARE OR HAVE BEEN ENROLLED IN A CHEMICAL DEPENDENCY/SUBSTANCEABUSE PROGRAM, SOME INFORMATION MAY BE OMITTED. This clinical summary was aggregated from multiple sources. Caution should be exercised in using it in the provision of clinical care. This summary normalizes information from multiple sources, and as a consequence, information in this document may materially change the coding, format and clinical context of patient data. In addition, data may be omitted in some cases. CLINICAL DECISIONS SHOULD BE BASED ON THE PRIMARY CLINICAL RECORDS. [facility] [email or web address] [facility]. provides no warranty or guarantee of the accuracy or completeness of information in this document.
== END 2023-07-28 09:19 | disposition home or self-care (01) ==
LOC: US 09:19
PROVIDERS: PCP Nurse Practitioner; Visit Provider Nurse Practitioner
DX: R31.29 Other microscopic hematuria (principal); N20.0 Calculus of kidney
CPT/HCPCS: 76775

== ENCOUNTER 2023-08-10 11:41 | Outpatient (OUT) | payer OTHER, SELFPAY ==
--- NOTE | 2023-08-10 11:46 | XR_ITS ---
The [address] [address] Patient Name: JULIETA LIZARRAGA MRN: [id number] date: 1965 Sex: M Assigned Patient Location: [facility] Current Patient Location: Accession/Order Number: [id number] Exam Date: 08/10/2023 11:55 Report Date: 08/11/2023 08:53 At the request of: LOC ESCOBEOD Procedure: XR abdomen 1V EXAMINATION: XR abdomen 1V HISTORY: Kidney Stone N20.0 COMPARISON: Ultrasound renal bilateral 07/28/2023, IV pyelogram 08/27/2014 FINDINGS: KIDNEY/URETER - RIGHT: No visible renal or ureteral calcifications. KIDNEY/URETER - LEFT: 16 x 9 mm stone suspected to be within the renal pelvis. A few small calcifications within the inferior pole. PELVIS: No appreciable ureteral stones. Pelvic calcifications favor chronic phleboliths. BOWEL: No abnormal dilation or deviation. BONES: No acute abnormality. OTHER: Negative. No abnormal gaseous collections. XR/XR abdomen 1V IMPRESSION: 1. Left nephrolithiasis. The large 16 x 9 mm stone is suspected to be within the renal pelvis which would predispose to obstruction. Electronically authenticated by: MOISÉS WILLAMS Date: 08/11/2023 08:53
--- OUTSIDE RECORDS SUMMARY | 2023-08-10 11:52 | XMS_ITS | CCD ---
Author Name Unknown Address [email or web address] [place] [address] Organization [facility] Care Team Providers Care Spring Coverer Name Role Phone Non-Referral, Physician Unavailable Unavaila ble Non-Referral, Physician Unavailable Unavaila ble Non-Referral, Physician Unavailable Unavaila ble AICHHOLZ, MEDICAL CASE WORKER LIZETH Admitting Unavailable AICHHOLZ, MEDICAL CASE WORKER LIZETH Primary Care Unavailable AICHHOLZ, MEDICAL CASE WORKER LIZETH Consulting Unavailable AICHHOLZ, MEDICAL CASE WORKER LIZETH Attending Unavailable AICHHOLZ, MEDICAL CASE WORKER LIZETH Admitting Unavailable AICHHOLZ, MEDICAL CASE WORKER LIZETH Primary Care Unavailable AICHHOLZ, MEDICAL CASE WORKER LIZETH Consulting Unavailable AICHHOLZ, MEDICAL CASE WORKER LIZETH Attending Unavailable Aichholz SNIPPER, Lizeth Unavailable Lloyd Garrison MD Primary Care Provider AICHHOLZ, LIZETH Attending Unavailable AICHHOLZ, LIZETH J Referring Unavailable Abdifatah ESCOBEDO Attending Unavailable Allergies Allergy Classification Reported Allergen(s) Allergy Type Date of Onset Reaction(s) Facility (1 source) No Known Medication Allergies; Translations: [No Known Medication Allergies] Propensity to adverse reactions (disorder) [facility] Repository Medications Current Medications Medication Drug Class(es) Dates [...] WITH AUTO DIFFon BASOPHILS ABSOLUTE AUTO 0.1 [facility] Basophils/100 WBC (Bld) 1.3 % 0.2 - 2.0 % [facility] Eosinophils/100 WBC (Bld) 4.1 % 0.9 - 7.0 % [facility] Erythrocyte distribution width (RBC) [Ratio] 12.3 % 11.0 - 15.0 % [facility] Hematocrit (Bld) [Volume fraction] 45.4 % 42.0 - 54.0 % [facility] Hemoglobin (Bld) [Mass/Vol] 15.3 g/dL 14.0 - 18.0 g/dL [facility] IMMATURE GRANULOCYTES ABS AUTO 0.01 [facility] Immature granulocytes/100 WBC (Bld) 0.1 % 0.0 - 0.5 % [facility] Interpretation and review of laboratory results Abnormal [facility] LYMPHOCYTES ABSOLUTE AUTO 1.9 [facility] Lymphocytes/100 WBC (Bld) 26.4 % 20.5 - 60.0 % [facility] MCH (RBC) [Entitic mass] 32.6 pg 25.9 - 34.0 pg [facility] MCHC (RBC) [Mass/Vol] 33.7 g/dL 29.9 - 35.2 g/dL [facility] MCV (RBC) [Entitic vol] 96.6 fL High 80.0 - 94.0 fL [facility] MONOCYTES ABSOLUTE AUTO 0.8 [facility] Monocytes/100 WBC (Bld) 11.3 % 1.7 - 12.0 % [facility] NEUTROPHILS ABSOLUTE AUTO 4.0 [facility] Neutrophils/100 WBC (Bld) 56.8 % 43.0 - 75.0 % [facility] Platelet mean volume (Bld) [Entitic vol] 9.8 fL 9.5 - 13.[address] [facility] # [facility].3 [facility] PLT 192 [facility] TB RBC 4.70 [facility] WBC 7.0 [facility] GLYCOHEMOGLOBIN A1Con 2022 ADA RECOMMENDATION SEE BELOW Normal [facility] Comment on above: Result Comment: ADA RECOMMENDED LIMIT 4.0 - 6.0 ADA THERAPEUTIC TARGET < 7.0 ACTION SUGGESTED > 7.0 Performed By: #### A 1C #### [facility] [address] [place] [address] Dr. Abbi Porter Glucose [Mass/Vol] 114 mg/dL Normal [facility] Comment on above: Performed By: #### A 1C #### [facility] [address] [place] [address] Dr. Abbi Porter HbA1c (Bld) [Mass fraction] 5.6 % Normal 4.5-6.2 [facility] Comment on above: Performed By: #### A 1C #### [facility] [address] [place] [address] Dr. Abbi Porter CBC AUTO DIFFon 11-24-2021 BASO # 0.1 103/ul Normal 0.0-0.1 [facility] Comment on above: Performed By: #### C BC #### [facility] [address] [place] [address] Dr. Abbi Porter Basophils/100 WBC (Bld) 1.1 % Normal 0.2-2.0 [facility] Comment on above: Performed By: #### C BC #### [facility] [address] [place] [address] Dr. Abbi Porter EO # 0.2 103/ul Normal 0.0-0.7 [facility] Comment on above: Performed By: #### C BC #### [facility] [address] [place] [address] Dr. Abbi Porter Eosinophils/100 WBC (Bld) 3.7 % Normal 0.9-7.0 [facility] Comment on above: Performed By: #### C BC #### [facility] [address] [place] [address] Dr. Abbi Porter Erythrocyte distribution width (RBC) [Ratio] 12.8 % Normal 11.0-15.0 [facility] Comment on above: Performed By: #### C BC #### [facility] [address] [place] [address] Dr. Abbi Porter Hematocrit (Bld) [Volume fraction] 44.8 % Normal 42.0-54.0 [facility] Comment on above: Performed By: #### C BC #### [facility] [address] [place] [address] Dr. Abbi Porter Hemoglobin (Bld) [Mass/Vol] 15.3 g/dL Normal 14.0-18.0 [facility] Comment on above: Performed By: #### C BC #### [facility] [address] [place] [address] Dr. Abbi Porter IG # 0.01 10e3/ul Normal 0.00-0.03 [facility] Comment on above: Performed By: #### C BC #### [facility] [address] [place] [address] Dr. Abbi Porter IG % 0.2 % Normal 0.0-0.5 [facility] Comment on above: Performed By: #### C BC #### [facility] [address] [place] [address] Dr. Abbi Porter LYMPH # 1.9 103/ul Normal 1.2-3.8 [facility] Comment on above: Performed By: #### C BC #### [facility] [address] [place] [address] Dr. Abbi Porter Lymphocytes/100 WBC (Bld) 28.4 % Normal 20.5-60.0 [facility] Comment on above: Performed By: #### C BC #### [facility] [address] [place] [address] Dr. Abbi Porter MANUAL DIFF REQ NO Normal [facility] Comment on above: Performed By: #### C BC #### [facility] [address] [place] [address] Dr. Abbi Porter MCH (RBC) [Entitic mass] 33.0 pg Normal 25.9-34.0 [facility] Comment on above: Performed By: #### C BC #### [facility] [address] [address] [address] Abbi Porter MCHC (RBC) [Mass/Vol] 34.2 g/dL Normal 29.9-35.2 [facility] Comment on above: Performed By: #### C BC #### [facility] [address] [place] [address] Dr. Abbi Porter MCV (RBC) [Entitic vol] 96.6 fL Critically high 80.0-94.0 [facility] Comment on above: Performed By: #### C BC #### [facility] [address] [place] [address] Dr. Abbi Porter MONO # 0.7 103/ul Normal 0.3-0.8 [facility] Comment on above: Performed By: #### C BC #### [facility] [address] [place] [address] Dr. Abbi Porter Monocytes/100 WBC (Bld) 10.7 % Normal 1.7-12.0 [facility] Comment on above: Performed By: #### C BC #### [facility] [address] [place] [address] Dr. Abbi Porter NEUT # 3.7 103/ul Normal 1.4-6.5 [facility] Comment on above: Performed By: #### C BC #### [facility] [address] [place] [address] Dr. Abbi Porter Neutrophils/100 WBC (Bld) 55.9 % Normal 43.0-75.0 [facility] Comment on above: Performed By: #### C BC #### [facility] [address] [place] [address] Dr. Abbi Porter Platelet mean volume (Bld) [Entitic vol] 10.6 fL Normal 9.5-13.5 [facility] Comment on above: Performed By: #### C BC #### [facility] [address] [place] [address] Dr. Abbi Porter PLT 233 103/ul Normal 150-450 [facility] Comment on above: Performed By: #### C BC #### [facility] [address] [address] [address] Abbi Porter RBC 4.64 106/ul Critically low 4.70-6.10 [facility] Comment on above: Performed By: #### C BC #### [facility] [address] [address] [address] Abbi Porter WBC 6.6 103/ul Normal 4.0-11.0 [facility] Comment on above: Performed By: #### C BC #### [facility] [address] [address] [address] Abbi Porter CULTURE URINEon 11-24-2021 CULTURE URINE Culture Observations: NO GROWTH. Normal [facility] Comment on above: Performed By: #### U RCX #### [facility] [address] [place] [address] Dr. Abbi Porter GLYCOHEMOGLOBIN A1Con 2021 ADA RECOMMENDATION SEE BELOW Normal [facility] Comment on above: Result Comment: ADA RECOMMENDED LIMIT 4.0 - 6.0 ADA THERAPEUTIC TARGET < 7.0 ACTION SUGGESTED > 7.0 Performed By: #### A 1C #### [facility] [address] [address] [address] Abbi Porter Glucose [Mass/Vol] 117 mg/dL Normal [facility] Comment on above: Performed By: #### A 1C #### [facility] [address] [address] [address] Abbi Porter HbA1c (Bld) [Mass fraction] 5.7 % Normal 4.5-6.2 [facility] Comment on above: Performed By: #### A 1C #### [facility] [address] [address] [address] Abbi Porter MICROALBUMIN, RAND URon 10-28 mALB 8.3 mg/L Normal <=30.0 [facility] Comment on above: Performed By: #### M ALBR #### [facility] [address] [address] [address] Abbi Porter PROF 14(COMP METB)on 06-29-2 022 Albumin [Mass/Vol] 4.2 g/dL Normal 3.4-5.0 [facility] Comment on above: Performed By: #### C MP #### [facility] [address] [place] [address] Dr. Abbi Porter Albumin/Globulin [Mass ratio] 1.4 {ratio} Normal [facility] Comment on above: Performed By: #### C MP #### [facility] [address] [place] [address] Dr. Abbi Porter ALP [Catalytic activity/Vol] 66 U/L Normal 46-116 [facility] Comment on above: Performed By: #### C MP #### [facility] [address] [place] [address] Dr. Abbi Porter ALT [Catalytic activity/Vol] 34 U/L Normal 16-63 [facility] Comment on above: Performed By: #### C MP #### [facility] [address] [place] [address] Dr. Abbi Porter Anion gap [Moles/Vol] 14.2 mmol/L Normal [facility] Comment on above: Performed By: #### C MP #### [facility] [address] [place] [address] Dr. Abbi Porter AST [Catalytic activity/Vol] 19 U/L Normal 15-37 [facility] Comment on above: Performed By: #### C MP #### [facility] [address] [place] [address] Dr. Abbi Porter Bilirubin [Mass/Vol] 0.4 mg/dL Normal 0.2-1.0 [facility] Comment on above: Performed By: #### C MP #### [facility] [address] [place] [address] Dr. Abbi Porter Calcium [Mass/Vol] 9.2 mg/dL Normal 8.5-10.1 [facility] Comment on above: Performed By: #### C MP #### [facility] [address] [place] [address] Dr. Abbi Porter Chloride [Moles/Vol] 103 mmol/L Normal 98-107 [facility] Comment on above: Performed By: #### C MP #### [facility] [address] [address] [address] Abbi Porter CO2 [Moles/Vol] 29.9 mmol/L Normal 21.0-32.0 [facility] Comment on above: Performed By: #### C MP #### [facility] [address] [address] [address] Abbi Porter Creatinine [Mass/Vol] 0.95 mg/dL Normal 0.70-1.30 [facility] Comment on above: Performed By: #### C MP #### [facility] [address] [address] [address] Abbi Porter EGFR-AF EGYPTIAN >60 Normal >=60 [facility] Comment on above: Performed By: #### C MP #### [facility] [address] [place] [address] Dr. Abbi Porter EGFR-NON AF EGYPTIAN >60 Normal >=60 [facility] Comment on above: Performed By: #### C MP #### [facility] [address] [address] [address] Abbi Porter Globulin (S) [Mass/Vol] 3.1 g/dL Normal [facility] Comment on above: Performed By: #### C MP #### [facility] [address] [address] [address] Abbi Porter Glucose [Mass/Vol] 111 mg/dL Critically high 74-106 [facility] Comment on above: Performed By: #### C MP #### [facility] [address] [address] [address] Abbi Porter Potassium [Moles/Vol] 4.1 mmol/L Normal 3.5-5.1 [facility] Comment on above: Performed By: #### C MP #### [facility] [address] [place] [address] Dr. Abbi Porter Protein [Mass/Vol] 7.3 g/dL Normal 6.4-8.2 [facility] Comment on above: Performed By: #### C MP #### [facility] [address] [address] [address] Abbi Porter Sodium [Moles/Vol] 143 mmol/L Normal 136-145 [facility] Comment on above: Performed By: #### C MP #### [facility] [address] [place] [address] Dr. Abbi Porter Urea nitrogen [Mass/Vol] 19.0 mg/dL Critically high 7.0-18.0 [facility] Comment on above: Performed By: #### C MP #### [facility] [address] [place] [address] Dr. Abbi Porter Urea nitrogen/Creatinine [Mass ratio] 20.0 mg/mg Normal [facility] Comment on above: Performed By: #### C MP #### [facility] [address] [place] [address] Dr. Abbi Porter UA RANDOM W/MICROSCOPICon BACTERIA NONE SEEN Normal NONE SEEN [facility] Comment on above: Performed By: #### U AMIC #### [facility] [address] [place] [address] Dr. Abbi Porter Bilirubin Ql (U) Negative Normal NEGATIVE [facility] Comment on above: Performed By: #### U AMIC #### [facility] [address] [place] [address] Dr. Abbi Porter CAST NONE SEEN Normal NONE SEEN [facility] Comment on above: Performed By: #### U AMIC #### [facility] [address] [place] [address] Dr. Abbi Porter Clarity (U) CLEAR Normal CLEAR [facility] Comment on above: Performed By: #### U AMIC #### [facility] [address] [place] [address] Dr. Abbi Porter Color (U) LT. YELLOW Normal YELLOW [facility] Comment on above: Performed By: #### U AMIC #### [facility] [address] [place] [address] Dr. Abbi Porter Crystals LM Nom (Urine sed) NONE SEEN Normal NONE SEEN [facility] Comment on above: Performed By: #### U AMIC #### [facility] [address] [address] [address] Abbi Porter Epithelial cells LM Ql (Urine sed) FEW Abnormal NONE SEEN /RARE [facility] Comment on above: Performed By: #### U AMIC #### [facility] [address] [place] [address] Dr. Abbi Porter Glucose Ql (U) Negative Normal NEGATIVE [facility] Comment on above: Performed By: #### U AMIC #### [facility] [address] [address] [address] Abbi Porter Hemoglobin Ql (U) LARGE Abnormal NEGATIVE [facility] Comment on above: Performed By: #### U AMIC #### [facility] [address] [place] [address] Dr. Abbi Porter Ketones Ql (U) Negative Normal NEGATIVE [facility] Comment on above: Performed By: #### U AMIC #### [facility] [address] [place] [address] Dr. Abbi Porter LEUKOCYTES TRACE Abnormal NEGATIVE [facility] Comment on above: Performed By: #### U AMIC #### [facility] [address] [address] [address] Abbi Porter MUCOUS NONE SEEN Normal NONE SEEN [facility] Comment on above: Performed By: #### U AMIC #### [facility] [address] [place] [address] Dr. Abbi Porter Nitrite Ql (U) Negative Normal NEGATIVE [facility] Comment on above: Performed By: #### U AMIC #### [facility] [address] [place] [address] Dr. Abbi Porter pH (U) 5.5 [pH] Normal 5-9 [facility] Comment on above: Performed By: #### U AMIC #### [facility] [address] [place] [address] Dr. Abbi Porter RBC 0-2 Normal 0-2 [facility] Comment on above: Performed By: #### U AMIC #### [facility] [address] [place] [address] Dr. Abbi Porter SPEC GRAVITY 1.025 Normal 1.005-<=1.025 [facility] Comment on above: Performed By: #### U AMIC #### [facility] [address] [address] [address] Abbi Porter UA PROTEIN Negative Normal NEGATIVE/ TRACE [facility] Comment on above: Performed By: #### U AMIC #### [facility] [address] [address] [address] Abbi Porter Urobilinogen Qn (U) 0.2 {Candice'U}/dL Normal 0.2 - 1. 0 [facility] Comment on above: Performed By: #### U AMIC #### [facility] [address] [address] [address] Abbi Porter WBC 10-20 Abnormal NONE SEEN [facility] Comment on above: Performed By: #### U AMIC #### [facility] [address] [address] [address] Abbi Porter AMYLASEon 06-04-2019 Amylase [Catalytic activity/Vol] 86 U/L Normal 28-[address] [facility] Comment on above: Performed By: #### 4 [id number] #### [address] [address] CBC and diff (cpt 44651)on 0 06-04-2019 Basophils (Bld) [#/Vol] 0.03 10*3/uL Normal 0.00-0.[address] [facility] Comment on above: Performed By: #### 4 [id number] #### [address] [address] Basophils/100 WBC (Bld) 0.4 % Normal 0.0-2.[address] [facility] Comment on above: Performed By: #### 4 [id number] #### [address] [address] Eosinophils (Bld) [#/Vol] 0.21 10*3/uL Normal 0.00-0.[address] [facility] Comment on above: Performed By: #### 4 [id number] #### [address] [address] Eosinophils/100 WBC (Bld) 2.7 % Normal 0.0-7.[address] [facility] Comment on above: Performed By: #### 4 [id number] #### [address] [address] Erythrocyte distribution width (RBC) [Ratio] 13.1 % Normal 11.5-14.[address] [facility] Comment on above: Performed By: #### 4 #### [address] [address] Hematocrit (Bld) [Volume fraction] 42.2 % Normal 36.0-52.[address] [facility] Comment on above: Performed By: #### 4 [id number] #### [address] [address] Hemoglobin (Bld) [Mass/Vol] 14.6 g/dL Normal 12.2-18.[address] [facility] Comment on above: Performed By: #### 4 #### [address] [address] Immature granulocytes (Bld) [#/Vol] 0.02 10*3/uL Normal 0.00-0.[address] [facility] Comment on above: Performed By: #### 4 #### [address] [address] Immature granulocytes/100 WBC (Bld) 0.3 % Normal 0.0-1.[address] [facility] Comment on above: Performed By: #### 4 [id number] #### [address] [address] Lymphocytes (Bld) [#/Vol] 2.10 10*3/uL Normal 0.98-3.[address] [facility] Comment on above: Performed By: #### 4 [id number] #### [address] [address] Lymphocytes/100 WBC (Bld) 27.5 % Normal 20.0-45.[address] [facility] Comment on above: Performed By: #### 4 #### [address] [address] MCH (RBC) [Entitic mass] 32.4 pg Normal 27.0-34.[address] [facility] Comment on above: Performed By: #### 4 [id number] #### [address] [address] MCHC (RBC) [Mass/Vol] 34.6 g/dL Normal 33.0-37.[address] [facility] Comment on above: Performed By: #### 4 [id number] #### [address] [address] MCV (RBC) [Entitic vol] 94 fL Normal 80-[address] [facility] Comment on above: Performed By: #### 4 [id number] #### [address] [address] Monocytes (Bld) [#/Vol] 0.64 10*3/uL Normal 0.28-0.[address] [facility] Comment on above: Performed By: #### 4 [id number] #### [address] [address] Monocytes/100 WBC (Bld) 8.4 % Normal 2.0-12.[address] [facility] Comment on above: Performed By: #### 4 [id number] #### [address] [address] Neutrophils (Bld) [#/Vol] 4.64 10*3/uL Normal 1.67-7.[address] [facility] Comment on above: Performed By: #### 4 [id number] #### [address] [address] Neutrophils/100 WBC (Bld) 60.7 % Normal 40.0-65.[address] [facility] Comment on above: Performed By: #### 4 [id number] #### [address] [address] Platelets (Bld) [#/Vol] 185 10*3/uL Normal 120-[address] [facility] Comment on above: Performed By: #### 4 [id number] #### [address] [address] RBC (Bld) [#/Vol] 4.51 10*6/uL Normal 4.00-5.[address] [facility] Comment on above: Performed By: #### 4 [id number] #### [address] [address] WBC (Bld) [#/Vol] 7.64 10*3/uL Normal 3.80-10.[address] [facility] Comment on above: Performed By: #### 4 [id number] #### [address] [address] [facility] Albumin [Mass/Vol] 4.50 g/dL Normal 3.50-5.[address] [facility] Comment on above: Performed By: #### 4 [id number] #### [address] [address] Albumin/Globulin [Mass ratio] 1.7 Normal 0.8-2.[address] [facility] Comment on above: Performed By: #### 4 [id number] #### [address] [address] ALP [Catalytic activity/Vol] 60 U/L Normal 40-[address] [facility] Comment on above: Performed By: #### 4 [id number] #### [address] [address] ALT No additional P-5'-P [Catalytic activity/Vol] 30 [iU]/L Normal <[address] [facility] Comment on above: Performed By: #### 4 [id number] #### [address] [address] Anion gap [Moles/Vol] 17 mmol/L Normal 9-[address] [facility] Comment on above: Performed By: #### 4 [id number] #### [address] [address] AST [Catalytic activity/Vol] 24 U/L Normal <[address] [facility] Comment on above: Performed By: #### 4 [id number] #### [address] [address] Bilirubin [Mass/Vol] 0.19 mg/dL Normal <1.[address] [facility] Comment on above: Performed By: #### 4 [id number] #### [address] [address] Calcium [Mass/Vol] 9.5 mg/dL Normal 8.6-10.[address] [facility] Comment on above: Performed By: #### 4 595572 #### [address] [address] Chloride [Moles/Vol] 101.3 mmol/L Normal 98.0-107.0 [facility] Comment on above: Performed By: #### 4 [id number] #### [address] [address] Creatinine [Mass/Vol] 0.88 mg/dL Normal 0.67-1.[address] [facility] Comment on above: Performed By: #### 4 781944 #### [address] [address] GFR/1.73 sq M.predicted MDRD (S/P/Bld) [Vol rate/Area] mL/min/{1.73_m2} Normal [facility] Comment on above: Result Comment: [facility] erular Filtration Rate (eGFR) eGFR units: mL/min/1.73 [...] or www. niddk.nih.gov Performed By: #### 4 [id number] #### [address] [address] Glucose [Mass/Vol] 123 mg/dL High 74-[address] [facility] Comment on above: Performed By: #### 4 [id number] #### [address] [address] HCO3 [Moles/Vol] 25.2 mmol/L Normal 22.0-29.[address] [facility] Comment on above: Performed By: #### 4 [id number] #### [address] [address] Potassium [Moles/Vol] 4.71 mmol/L Normal 3.40-5.[address] [facility] Comment on above: Performed By: #### 4 [id number] #### [address] [address] Protein [Mass/Vol] 7.1 g/dL Normal 6.4-8.[address] [facility] Comment on above: Performed By: #### 4 350217 #### [address] [address] Sodium [Moles/Vol] 139 mmol/L Normal 136-[address] [facility] Comment on above: Performed By: #### 4 [id number] #### [address] [address] Urea nitrogen [Mass/Vol] 16.4 mg/dL Normal 6.0-20.[address] [facility] Comment on above: Performed By: #### 4 [id number] #### [address] [address] CRP (inflammation) cpt 55544 on 06-04-2019 CRP [Mass/Vol] 5.7 mg/L High <5.[address] [facility] Comment on above: Performed By: #### 4 [id number] #### [address] [address] [address] ABD PELVISon 06-04-2019 CT ABD PELVIS ---------NAME------- -- NUMBER SEX AGE ADMIT DISC. XRAY# F/C TYPE SEEMAMAX Yeung [id number] M 54 06/04/19 [id number] O E/R DATE OF : 1965 M/R# [id number] #: [id number] ED-06 LOCATION: EMERGENCY DEPT TRANSCRIBED: 06/04/19 12:[address] ABD PELVIS [id number] COMPLETED:06/04/19 12:21 KLK 35344 Reason(s): Abdominal Pain Flank Pain PHYSICIAN: BON OTHER PHYS W A Y N E H E A L T H C A R E R A D I O L O G Y R E P O R T [address] [place] [address] PROCEDURE: CT ABD PELVIS DATE OF EXAM: [...] HERNAN LAMBERT MD 06/04/2019 12:[address] [facility] LIPASEon 06-04-2019 Lipase [Catalytic activity/Vol] 38 U/L Normal 13-[address] [facility] Comment on above: Performed By: #### 4 [id number] #### [address] [address] URINALYSIS reflex CULTUREon 06-04-2019 Bacteria LM Ql (Urine sed) TRACE Abnormal NONE SEEN [facility] Comment on above: Performed By: #### 4 [id number] #### [address] [address] Bilirubin Ql (U) Negative Normal NEGATIVE [facility] Comment on above: Performed By: #### 4 [id number] #### [address] [address] Clarity Refractometry automated (U) CLEAR Normal CLEAR [facility] Comment on above: Performed By: #### 4 [id number] #### [address] [address] Color (U) YELLOW Normal YELLOW [facility] Comment on above: Performed By: #### 4 [id number] #### [address] [address] Epithelial cells.squamous LM.HPF (Urine sed) [#/Area] 7-[address] [facility] Comment on above: Performed By: #### 4 [id number] #### [address] [address] Glucose Ql (U) 250 mg/dL Abnormal NEGATIVE [facility] Comment on above: Performed By: #### 4 [id number] #### [address] [address] Hemoglobin Auto test strip Ql (U) MODERATE Abnormal NEGATIVE [facility] Comment on above: Performed By: #### 4 [id number] #### [address] [address] Ketones Ql (U) Negative Normal NEGATIVE [facility] Comment on above: Performed By: #### 4 [id number] #### [place] [address] Leukocyte esterase Auto test strip Ql (U) Negative Normal NEGATIVE [facility] Comment on above: Performed By: #### 4 [id number] #### [place] [address] Mucus Ql (Urine sed) 1+ [LPF] Normal [facility] Comment on above: Performed By: #### 4 [id number] #### [place] [address] Nitrite Ql (U) Negative Normal NEGATIVE [facility] Comment on above: Performed By: #### 4 [id number] #### [place] [address] pH (U) 5.5 Normal 5-[address] [facility] Comment on above: Performed By: #### 4 [id number] #### [place] [address] Protein Ql (U) Negative Normal NEGATIVE [facility] Comment on above: Performed By: #### 4 [id number] #### [place] [address] RBC LM.HPF (Urine sed) [#/Area] 15-20 Abnormal 0-[address] [facility] Comment on above: Performed By: #### 4 [id number] #### [place] [address] Specific gravity (U) [Rel density] >=1.030 Abnormal <=1.005-1.[address] [facility] Comment on above: Performed By: #### 4 [id number] #### [place] [address] Type of Urine collection method CLEAN CATCH-CC [facility] Comment on above: Performed By: #### 4 [id number] #### [place] [id number] URINALYSIS reflex CULTURE [facility] Comment on above: Result Comment: URIN ALYSIS with Reflex to CULTURE Performed By: #### 4 [id number] #### [address] [address] Urobilinogen Test strip Ql (U) 0.2 {EhrlichU}/dL Normal 0.2-1.[address] [facility] Comment on above: Performed By: #### 4 [id number] #### [address] [address] WBC LM.HPF (Urine sed) [#/Area] 4-6 Abnormal 0-[address] [facility] Comment on above: Performed By: #### 4 [id number] #### [address] [address] Vital Signs Date Time Vital Sign Value Performing Clinician Faci lity 06-29-2023 18:14-0500 Body height 172.7 cm Lizeth Van SNIPPER Work Phone: [facility] 06-29-2023 18:14-0500 Body mass index (BMI) [Ratio] 32.39 kg/m2 Lizeth Jocelinez SNIPPER Work Phone: [facility] 06-29-2023 18:14-0500 Body temperature 97.5 [degF] Lizeth Jocelinez SNIPPER Work Phone: [facility] 06-29-2023 18:14-0500 Body weight 96.62 kg Lizeth Jocelinez SNIPPER Work Phone: [facility] 06-29-2023 18:14-0500 Diastolic blood pressure 70 mm[Hg] Lizeth Jocelinez SNIPPER Work Phone: [facility] 06-29-2023 18:14-0500 Heart rate 80 /min Lizeth Jocelinez SNIPPER Work Phone: [facility] 06-29-2023 18:14-0500 Respiratory rate 19 /min Lizeht Jocelinez SNIPPER Work Phone: [facility] 06-29-2023 18:14-0500 SaO2% (BldA) [Mass fraction] 96 % Lizeth Jocelinez SNIPPER Work Phone: [facility] 06-29-2023 18:14-0500 Systolic blood pressure 120 mm[Hg] Lizeth Jocelinez SNIPPER Work Phone: [facility] Encounters Encounter Date Encounter Type Care Provider Facility Start: 08-14-2023 ambulatory LIZETH VAN Facilit y:[facility] Start: 08-02-2023 ambulatory LIZETH VAN Facility: [facility] Start: 07-07-2023 Clinisync Result Encounter Lizeth Van SNIPPER Work Phone: [facility] Unsolicited Start: 07-07-2023 Clinisync Result Encounter Lizeth Rehan SNIPPER Work Phone: [facility] Unsolicited Start: 06-29-2023 End: 06-29-2023 ambulatory LIZETH VAN Not Available Start: 06-29-2023 End: 06-29-2023 Office outpatient visit 25 minutes Liezth Van SNIPPER Work Phone: [facility] Comment on above: Hypertension, benign (CMS/HCC) (Primary Dx); Hematuria, microscopic; Prediabetes; BMI 32.0-32.9,adult; Hypertriglyceridemia (CMS/HCC); Tobacco dependence; Screening for prostate cancer; Essential (primary) hypertension (CMS/HCC) Start: 06-29-2023 Bamboo flowsheet Lizeth Van SNIPPER Work Phone: [facility] Start: 06-29-2023 Bamboo flowsheet Lizeth Van SNIPPER Work Phone: [facility] Start: 06-23-2022 End: 06-24-2022 ambulatory MEDICAL CASE WORKER LIZETH VAN Facility:[facility] Start: 11-24-2021 End: 11-25-2021 ambulatory MEDICAL CASE WORKER LIZETH VAN Facility:[facility] Start: 11-20-2017 Ambulatory Physician [facility] Procedures Date Procedure Procedure Detail Performing Clinician Start: 07-07-2023 ALL CBC WITH AUTO DIFF Lizeth Van SNIPPER Work Phone: Start: 11-24-2021 PSA screening OUSMANE VAN Comment on above: Performed By: #### P [facility] #### [facility] [id number] Abbi Porter Plan of Treatment Date Care Activity Detail Author Start: 02-27-2024 Screening for malignant neoplasm of colon [facility] Start: 01-01-2024 End: 01-01-2024 Patient encounter procedure 01/01/2024 7:20 PM EDT Office Visit [facility] [address] [place] [address] Lizeth Van, FORTUNATO [address] [place] [phone] [facility] Start: 06-29-2023 End: 06-29-2023 Patient encounter procedure 06/29/2023 6:15 PM EST Office Visit [facility] [address] [place] [address] Lizeth Van, FORTUNATO [address] [place] [id number] Hypertension, benign (CMS/HCC) (Primary Dx); Hematuria, microscopic; Prediabetes; Obesity with body mass index (BMI) of 30.0 to 39.9; Hypertriglyceridemia (CMS/HCC); Tobacco dependence; Screening for prostate cancer [facility] Comment on above: Hypertension, benign (CMS/HCC) (Primary Dx); Hematuria, microscopic; Prediabetes; Obesity with body mass index (BMI) of 30.0 to 39.9; Hypertriglyceridemia (CMS/HCC); Tobacco dependence; Screening for prostate cancer Start: 06-29-2023 End: 06-29-2024 CBC W Auto Differential panel - Blood CBC and differential Lab Routine Hematuria, microscopic Expected: 06/29/2023 (Approximate), Expires: 06/29/2024 [facility] Work Phone: Comment on above: Expected: 06/29/2023 (Approximate), Expi res: 06/29/2024 Start: 06-29-2023 End: 06-29-2024 Comprehensive metabolic 2000 panel - Serum or Plasma Comprehensive metabolic panel Lab Routine Hypertension, benign (CMS/HCC) Hematuria, microscopic Prediabetes Hypertriglyceridemia (CMS/HCC) Expected: 06/29/2023 (Approximate), Expires: 06/29/2024 [facility] Comment on above: Expected: 06/29/2023 (Approximate), Expi res: 06/29/2024 Start: 06-29-2023 End: 06-29-2024 Lipid 1996 panel - Serum or Plasma Lipid panel Lab Routine Prediabetes Hypertriglyceridemia (CMS/HCC) Expected: 06/29/2023 (Approximate), Expires: 06/29/2024 [facility] Comment on above: Expected: 06/29/2023 (Approximate), Expi res: 06/29/2024 Start: 06-29-2023 End: 06-29-2024 Microalbumin/Creatinin e panel in random Urine Microalbumin / creatinine, urine ratio Lab Routine Hypertension, benign (CMS/HCC) Prediabetes Expected: 06/29/2023 (Approximate), Expires: 06/29/2024 [facility] Comment on above: Expected: 06/29/2023 (Approximate), Expi res: 06/29/2024 Start: 06-29-2023 End: 06-29-2024 Prostate specific Ag [Mass/volume] in Serum or Plasma PSA Lab Routine Screening for prostate cancer Expected: 06/29/2023 (Approximate), Expires: 06/29/2024 [facility] Comment on above: Expected: 06/29/2023 (Approximate), Expi res: 06/29/2024 Start: 06-29-2023 End: 06-29-2024 Urinalysis complete panel - Urine Urinalysis with reflex microscopic (clean catch) Lab Routine Hypertension, benign (CMS/HCC) Hematuria, microscopic Prediabetes Expected: 06/29/2023 (Approximate), Expires: 06/29/2024 [facility] Comment on above: Expected: 06/29/2023 (Approximate), Expi res: 06/29/2024 Start: 01-27-2023 Influenza vaccination Influenza Vaccine (#1) [facility] Start: 1965 Screening for malignant neoplasm of colon [facility] Payers Date Payer Category Payer Unknown BCBS BCBS [id number] 2018-Present [phone] [address] [place] [address] 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 No [facility] Do you belong to any clubs or organizations such as pentecostalism groups, unions, fraternal or athletic groups, or school groups? Yes [...] Not at all [facility] (I/We) worried wheth er (my/our) food would run out before (I/we) got money to buy more. Never true [facility] Start: 1965 Sex Assigned At Not on file [facility] Start: 06-15-2023 Gender identity Identifies as male gender (finding) [facility] Start: 06-29-2023 Tobacco smoking status NHIS Smokes t obacco daily [facility] History of tobacco use Cigarette Smoker [facility] Start: 06-29-2023 Tobacco use and exposure Smoke less tobacco non-user [facility] Start: 06-29-2023 Alcohol intake Ex-drinker (finding) [facility] Start: 06-29-2023 Alcohol Comment caffine: coffe e 2-3 daily [facility] History of Present illness Narrative 06-29-2023 [...] from the original note were not included. Julieta Finch Jr. is a 58 y.o. male [...] being taken. He does not see a environmental quality analyst.Eye exam is current. Hypertension This is a [...] 40 MG tablet documented in this encounter [facility] Evaluation note Note Date & Type Note Facility Evaluation note Diagnosis Hypertension, benign (CMS/HCC)- Primary Essential hypertension, benign Hematuria, microscopic Microscopic hematuria Prediabetes Other abnormal glucose BMI 32.0-32.9,adult Hypertriglyceridemia (CMS/HCC) Pure hyperglyceridemia Tobacco dependence Tobacco use disorder Screening for prostate cancer Special screening for malignant neoplasm of prostate Essential (primary) hypertension (CMS/HCC) Unspecified essential hypertension documented in this encounter [facility] Summary Purpose Family History No Family [...] section and content) DATE CREATED AUTHOR 11/21/2017 [facility] DATE CREATED AUTHOR AUTHOR'S ORGANIZ ATION 06/06/[address] [facility] DATE CREATED AUTHOR AUTHOR'S ORGANIZ ATION 06/25/2022 [facility] DATE CREATED AUTHOR AUTHOR'S ORGANIZ ATION 07/01/2023 [facility] EPIC DATE CREATED AUTHOR AUTHOR'S ORGANIZ ATION 08/09/2023 [facility] Care Teams (unrecognized sec tion and content) Spring Coverer Relationship Specialty Start Date End Date Lloyd Garrison MD [address] [place] [phone] PCP - General Family Medicine 06/23/23 Lizeth Van NP [address] [place] [address] Referring Physician Nurse Practitioner 12/12/22 Spring Coverer Relationship Specialty Start Date End Date Lloyd Garrison MD [address] [place] [address] PCP - General Family Medicine 06/23/23 Lizeth Van NP [address] [place] [address] Referring Physician Nurse Practitioner 12/12/22 Spring Coverer Relationship Specialty Start Date End Date Lloyd Garrison MD [address] [place] [address] PCP - General Family Medicine 06/23/23 Lizeth Van NP [address] [place] [address] Referring Physician Nurse Practitioner 12/12/22 FOR RECORDS [...] BE BASED ON THE PRIMARY CLINICAL RECORDS. [facility] Emissary [facility]. provides no warranty or guarantee of the accuracy or completeness of information in this document.
== END 2023-08-10 11:42 | disposition home or self-care (01) ==
LOC: RAD 11:43
PROVIDERS: PCP Nurse Practitioner; Visit Provider Urology
DX: N20.0 Calculus of kidney (principal)
CPT/HCPCS: 74018

== ENCOUNTER 2023-08-18 08:47 | Outpatient (OUT) | payer OTHER, SELFPAY ==
--- OUTSIDE RECORDS SUMMARY | 2023-08-18 08:52 | XMS_ITS | CCD ---
Author Organization [facility] Care Team Providers [facility] Consultant Name Role Phone Non-Referral, Physician Unavailable Unavaila ble Non-Referral, Physician Unavailable Unavaila ble Non-Referral, Physician Unavailable Unavaila ble AICHHOLZ, MAT CLEANING MACHINE OPERATOR LIZETH Admitting Unavailable AICHHOLZ, MAT CLEANING MACHINE OPERATOR LIZETH Primary Care Unavailable AICHHOLZ, MAT CLEANING MACHINE OPERATOR LIZETH Consulting Unavailable AICHHOLZ, MAT CLEANING MACHINE OPERATOR LIZETH Attending Unavailable AICHHOLZ, MAT CLEANING MACHINE OPERATOR LIZETH Admitting Unavailable AICHHOLZ, MAT CLEANING MACHINE OPERATOR LIZETH Primary Care Unavailable AICHHOLZ, MAT CLEANING MACHINE OPERATOR LIZETH Consulting Unavailable AICHHOLZ, MAT CLEANING MACHINE OPERATOR LIZETH Attending Unavailable Aichholz GYM INSTRUCTOR, Lizeth Unavailable Lloyd Garrison MD Primary Care Provider [phone] LIZETH VAN Attending Unavailable LIZETH VAN Primary Care Physician LIZETH VAN Referring Unavailable Abdifatah ESCOBEDO Attending Unavailable Abdifatah ESCOBEDO Attending Unavailable Allergies Allergy Classification Reported Allergen(s) Allergy Type Date of Onset Reaction(s) Facility (1 source) No Known Medication Allergies; Translations: [No Known Medication Allergies] Propensity to adverse reactions (disorder) [facility] Repository Medications Current Medications Medication Drug Class(es) Dates Sig (Normalized) Sig (Original) aspirin 81 mg oral tablet (5 sources) Platelet Aggregation Inhibitor, Nonsteroidal Anti-inflammatory Drug Start: 08-14-2023 take 1 mg by mouth once daily Adult Aspirin 81 mg oral tablet, chewable mg tab(s), Chewed, Daily, Refills(s) 0 Start Date: 08/14/23 Status: Ordered take 1 tablet by mouth in the mo rning aspirin 81 MG EC tablet Take 1 tablet by mouth in the morning. 0 Active docosahexaenoic acid 120 mg / eicosapentaenoic acid 180 mg oral capsule (4 sources) take 2 capsules by mouth every twelve hours omega-3 (Fish Oil) 1000 MG capsule Take 2 capsules by mouth every 12 (twelve) hours 0 Active Fish Oils (1 source) Start: 08-14-2023 Cecil-3 Fish Oil Oral, TID, Refills(s) 0 Start Date: 08/14/23 Status: Ordered Turmeric extract (4 sources) take 1 capsule by mouth in the morning TURMERIC PO Take 1 capsule by mouth in the morning. 0 Active ubidecarenone 30 mg oral capsule (4 sources) take 1 capsule by mouth in the morning co-enzyme Q-10 30 MG capsule Take 1 capsule by mouth in the morning. 0 Active Completed/Discontinued Medications Medication Drug Class(es) Dates Sig (Normalized) Sig (Original) atorvastatin 10 mg oral tablet (1 source) HMG-CoA Reductase Inhibitor Start: 08-14-2023 atorvastatin 10 mg Tab 30 EA, 0 Refill(s), TAKE 1 TABLET BY MOUTH ONCE DAILY, Refills(s) 0 Start Date: 08/14/23 Status: Ordered lisinopril 40 mg oral tablet (7 sources) Angiotensin Converting Enzyme Inhibitor Start: 08-14-2023 lisinopril 40 mg Tab 90 EA, 0 Refill(s), TAKE 1 TABLET BY MOUTH DAILY, Refills(s) 0 Start Date: 08/14/23 Status: Ordered Start: 06-22-2023 End: 06-29-2023 take 1 tablet by mouth in the morning, then take 1 tablet by mouth once daily lisinopril 40 MG tablet Indications: Essential (primary) hypertension (CMS/HCC) Take 1 tablet (40 mg) by mouth in the morning. TAKE 1 TABLET BY MOUTH DAILY. 90 tablet 1 06/29/2023 Active metFORMIN hydrochloride 500 mg oral tablet (7 sources) Biguanide Start: 06-22-2023 End: 09-27-2023 metformin 500 mg Tab 90 EA, 0 Refill(s), TAKE 1 TABLET BY MOUTH DAILY, Refills(s) 0 Start Date: 08/14/23 Status: Ordered Problems Problem Classification Problem Date Documented Da te Episodic/Chronic Calculus of urinary tract (2 sources) Kidney stone; Translations: [Calculus of kidney] Onset: 08-14-2023 Episodic Diabetes mellitus without complication (12 sources) Prediabetes; Translations: [Prediabetes] Onset: 11-26-2021 Episodic Disorders of lipid metabolism (7 sources) Hypertriglyceridemi a; Translations: [Pure hyperglyceridemia] Onset: 06-29-2023 06-29-2023 Chronic Essential hypertension (10 sources) Essential (primary) hypertension; Translations: [Benign hypertension] Onset: 11-26-2021 06-29-2023 Chronic Genitourinary symptoms and ill-defined conditions (13 sources) Unspecified abnormal findings in urine; Translations: [Microscopic hematuria] Onset: 11-24-2021 Episodic Nonmalignant breast conditions (1 source) Breast lump 08-10-2023 Episodic Other aftercare (1 source) Long-term current use of aspirin; Translations: [correction (current) use of aspirin] Onset: 08-14-2023 Episodic Other nutritional; endocrine; and metabolic disorders (6 sources) Body mass index 30+ - obesity; Translations: [Obesity, unspecified] Onset: 06-29-2023 06-29-2023 Chronic Other nutritional; endocrine; and metabolic disorders (1 source) Obesity 08-10-2023 Chronic Other screening for suspected conditions (not mental disorders or infectious disease) (7 sources) Encounter for screening for malignant neoplasm of prostate; Translations: [Patient encounter status] Onset: 11-26-2021 06-29-2023 Episodic Other upper respiratory disease (5 sources) Mass of respiratory structure; Translations: [Other diseases of pharynx] Onset: 06-29-2023 06-29-2023 Episodic Residual codes; unclassified (1 source) H/O: breast problem 08-10-2023 Episodic Substance-related disorders (9 sources) Tobacco dependence syndrome; Translations: [Nicotine dependence, unspecified, uncomplicated] Onset: 06-29-2023 06-29-2023 Chronic Unclassified (1 source) Finding of sensation of bladder 08-14-2023 Unclassified (1 source) Long-term current use of aspirin 08-14-2023 Results Test Name Value Interpretation Reference Range Facility [facility] 08-15-2023 Forms [id number] #1.00TIFF Normal [facility] Physician Referralon 024 Physician Referral [id number] #1.00TIFF Normal [facility] Screenson 08-15-2023 Screens [id number] #1.00TIFF Normal [facility] Ambulatory Visit Summaryon 0 08-14-2023 Ambulatory Visit Summary JULIETA FINCH JR :1965 Visit Date:08/14/2023 Ambulatory Visit Instructions Your Diagnosis Kidney stones Microscopic hematuria Feeling of incomplete bladder emptying Smoker Aspirin long-term use Your Care Team Attending Physician - Abdifatah ESCOBEDO MD Primary Care Physician - LIZETH VAN CNP Referring Physician - LIZETH VAN CNP This Is Your Medications List Contact prescribing physician if questions or concerns aspirin (Adult Aspirin 81 mg oral tablet, chewable) atorvastatin (atorvastatin 10 mg Tab) lisinopril (lisinopril 40 mg Tab) metformin (metformin 500 mg Tab) omega-3 polyunsaturated fatty acids (Cecil-3 Fish Oil) Procedures Performed Tonsillectomy. Discharge Vitals Temperature (Temporal Artery) 36.0 ?C Heart Rate (Peripheral) 88 Blood Pressure 138/80 Weight 96.9 kg Weight 213.18 lb What to do next You Need to Schedule the Following Appointments Follow Up with FANNY MILLER, Abdifatah Sheppard, URL When: Comments: sched cysto/L ESWL Where: [address] [place] [address]- Medications What How Much When Instructions Unchanged aspirin (Adult Aspirin 81 mg oral tablet, chewable) Every day Contact prescribing physician if questions or concerns Unchanged atorvastatin (atorvastatin 10 mg Tab) 30 EA, 0 Refill(s), TAKE 1 TABLET BY MOUTH ONCE DAILY Contact prescribing physician if questions or concerns Unchanged lisinopril (lisinopril 40 mg Tab) 90 EA, 0 Refill(s), TAKE 1 TABLET BY MOUTH DAILY Contact prescribing physician if questions or concerns Unchanged metformin (metformin 500 mg Tab) 90 EA, 0 Refill(s), TAKE 1 TABLET BY MOUTH DAILY Contact prescribing physician if questions or concerns Unchanged omega-3 polyunsaturated fatty acids (Cecil-3 Fish Oil) 3 times a day Contact prescribing physician if questions or concerns Allergies No Known Allergies No Known Medication Allergies Problems Ongoing - Any problem that you are currently receiving treatment for. Aspirin long-term use Feeling of incomplete bladder emptying History of cyst of breast Hypertension Hypertriglyceridemia Kidney stones Left breast lump Mass of pharynx Microscopic hematuria Obesity Prediabetes Smoker Tobacco dependence Patient Survey You may receive a survey via text or e-mail asking about your office visit. Please share your experience with us by completing your survey. We appreciate your feedback and thank you for choosing us for your care. Education Materials Cystoscopy Cystoscopy is a procedure that is used to help diagnose and sometimes treat conditions that affect the lower urinary tract. The lower urinary tract includes the bladder and the urethra. The urethra is the tube that drains urine from the bladder. Cystoscopy is done using a thin, tube-shaped instrument with a light and camera at the end (cystoscope). The cystoscope may be hard or flexible, depending on the goal of the procedure. The cystoscope is inserted through the urethra, into the bladder. Cystoscopy may be recommended if you have: ? Urinary tract infections that keep coming back. ? Blood in the urine (hematuria). ? An inability to control when you urinate (urinary incontinence) or an overactive bladder. ? Unusual cells found in a urine sample. ? A blockage in the urethra, such as a urinary stone. ? Painful urination. ? An abnormality in the bladder found during an intravenous pyelogram (IVP) or CT scan. Cystoscopy may also be done to remove a sample of tissue to be examined under a microscope (biopsy). Tell a health care provider about: ? Any allergies you have. ? All medicines you are taking, including vitamins, herbs, eye drops, creams, and fqky-zfn-pigpzby medicines. ? Any problems you or family members have had with anesthetic medicines. ? Any blood disorders you have. ? Any surgeries you have had. ? Any medical conditions you have. ? Whether you are or may be . What are the risks? Generally, this is a safe procedure. However, problems may occur, including: ? Infection. ? Bleeding. ? Allergic reactions to medicines. ? Damage to other structures or organs. What happens before the procedure? Medicines Ask your health care provider about: ? Changing or stopping your regular medicines. This is especially important if you are taking diabetes medicines or blood thinners. ? Taking medicines such as aspirin and ibuprofen. These medicines can thin your blood. Do not take these medicines unless your health care provider tells you to take them. ? Taking gxzp-por-lgeiecb medicines, vitamins, herbs, and supplements. Tests You may have an exam or testing, such as: ? X-rays of the bladder, urethra, or kidneys. ? CT scan of the abdomen or pelvis. ? Urine tests to check for signs of infection. General instructions ? Foll (more content not included)... Normal [facility] Patient Educationon 08-14-19 Patient Education Pulmonary Medicine Steps to Quit Smoking Smoking tobacco is the leading cause of preventable . It can affect almost every organ in the body. Smoking puts you and those around you at risk for developing many serious chronic diseases. Quitting smoking can be very challenging. Do not get discouraged if you are not successful the first time. Some people need to make many attempts to quit before they achieve long-term success. Do your best to stick to your quit plan, and talk with your health care provider if you have any questions or concerns. How do I get ready to quit? When you decide to quit smoking, create a plan to help you succeed. Before you quit: ? Pick a date to quit. Set a date within the next 2 weeks to give you time to prepare. ? Write down the reasons why you are quitting. Keep this list in places where you will see it often. ? Tell your family, friends, and co-workers that you are quitting. Support from people you are close to can make quitting easier. ? Talk with your health care provider about your options for quitting smoking. ? Find out what treatment options are covered by your health insurance. ? Identify people, places, things, and activities that make you want to smoke (triggers). Avoid them. What first steps can I take to quit smoking? ? Throw away all cigarettes at home, at work, and in your car. ? Throw away smoking accessories, such as ashtrays and lighters. ? Clean your car. Make sure to empty the ashtray. ? Clean your home, including curtains and carpets. What strategies can I use to quit smoking? Talk with your health care provider about combining strategies, such as taking medicines while you are also receiving in-person counseling. Using these two strategies together makes you more likely to succeed in quitting than if you used either strategy on its own. If you are or , talk with your health care provider about finding counseling or other support strategies to quit smoking. Do not take medicine to help you quit smoking unless your health care provider tells you to. Quit right away ? Quit smoking completely, instead of gradually reducing how much you smoke over a period of time. Stopping smoking right away may be more successful than gradually quitting. ? Attend in-person counseling to help you build problem-solving skills. You are more likely to succeed in quitting if you attend counseling sessions regularly. Even short sessions of 10 minutes can be effective. Take medicine You may take medicines to help you quit smoking. Some medicines require a prescription. You can also purchase yltv-yyk-utppiow medicines. Medicines may have nicotine in them to replace the nicotine in cigarettes. Medicines may: ? Help to stop cravings. ? Help to relieve withdrawal symptoms. Your health care provider may recommend: ? Nicotine patches, gum, or lozenges. ? Nicotine inhalers or sprays. ? Non-nicotine medicine that you take by mouth. Find resources Find resources and support systems that can help you quit smoking and remain smoke-free after you quit. These resources are most helpful when you use them often. They include: ? Online chats with a counselor. ? Telephone quitlines. ? Printed self-help materials. ? Support groups or group counseling. ? Text messaging programs. ? Mobile phone apps or applications. Use apps that can help you stick to your quit plan by providing reminders, tips, and encouragement. Examples of free services include Quit Guide from the CDC and smokefree.gov What can I do to make it easier to quit? ? Reach out to your family and friends for support and encouragement. Call telephone quitlines, such as 7-894-QJLW-NOW, reach out to support groups, or work with a counselor for support. ? Ask people who smoke to avoid smoking around you. ? Avoid places that trigger you to smoke, such as bars, parties, or smoke-break areas at work. ? Spend time with people who do not smoke. ? Lessen the stress in your life. Stress can be a smoking trigger for some people. To lessen stress, try: ? Exercising regularly. ? Doing deep-breathing exercises. ? Doing yoga. ? Meditating. What benefits will I see if I quit smoking? Over time, you should start to see positive results, such as: ? Improved sense of smell and taste. ? Decreased coughing and sore throat. ? Slower heart rate. ? Lower blood pressure. ? Clearer and healthier skin. ? The ability to breathe more easily. ? Fewer sick days. Summary ? Quitting smoking can be very challenging. Do not get discouraged if you are not successful the first time. Some people need to make many attempts to quit before they achieve long-term success. ? When you decide to quit smoking, create a plan to help you succeed. ? Quit smoking right away, not slowly over a period of time. ? Find resources and support systems that can help you quit smoki (more content not included)... Normal [facility] RAD - MISCon 08-14-2023 [facility] [id number] #1.00TIFF Normal [facility] Urology Office/Clinic Noteon 08-14-2023 Urology Office/Clinic Note Chief Complaint GYM INSTRUCTOR referal for hematuria, Left nephrolithiasis HPI Staff New Pt. Referral per Lizeth Van GYM INSTRUCTOR due to left nephrolithiasis, microscopic hematuria. KUB done at [facility]. DENNY 08/10/23 DENNY 07/28/23@ [facility] IPSS 5 PVR 57 Dysuria: _denies Incomplete bladder emptying: _he is not sure Hematuria: _denies visible blood Frequency: 3-4x daily Urgency: denies Nocturia: denies Stream: denies hesitation, normal stream Leaking: denies Post void dripping: occasionally Wearing pads/ Depends: denies Urge incontinence: denies Stress incontinence: denies Incontinence without Sensory Awareness: denies Abdominal pain: Queezy feeling for about 6 month off and on Flank pain: _denies Sexual complaints: _denies History of Present Illness Tests reviewed: reviewed UA, referral records, KUB, DENNY I have reviewed the previous health record information and history for this patient from external providers. I have reviewed and verified the staff HPI to be accurate for this encounter. Review of Systems PHQ Score Initial Depression Screen Score: 0 SCORE ROS - Provider Constitutional: denies weight loss, denies hot flashes. Eyes: denies eye problems. Gastrointestinal: denies nausea, denies vomiting. Cardiovascular: denies chest pain or angina. Integumentary: no dryness Musculoskeletal: denies musculoskeletal symptoms. ENMT: denies otolaryngeal symptoms. Respiratory: no shortness of breath. Heme/Lymph: denies easy bleeding tendency, denies easy bruising tendency. Psychiatric: no confusion, no anxiety. Genitourinary: See HPI. Physical Exam Vitals & Measurements T: 36.0 ?C(Temporal Artery) HR: 88(Peripheral) BP: 138/80 WT: 96.9 kg WT: 213.18 lb General Appearance: alert, no distress, well nourished, well developed male. Head: normocephalic . Eyes: normal orbit and globe. ENMT: normal examination of external ears. Chest: Lungs CTA, respirations non labored. Cardiovascular: regular rate and rhythm. Abdomen: soft, non distended, no tenderness, no mass or organomegaly, no hernia. Genitourinary: normal scrotum, normal testes, normal urethra, normal epididymis, normal vas deferens/spermatic cord. Flank Pain: none. Bladder: nonpalpable. Penis: normal shaft, normal glans. Lymph Nodes: unremarkable palpation of the cervical area. Skin: warm, dry, no bruising. Psychiatric: cooperative, affect appropriate for age, normal judgement, euthymic mood. Assessment/Plan Julieta is a 58 yo male new pt referred by Lizeth Van NP for left nephrolithiasis and microscopic hematuria. 1. Kidney stones (N20.0: Calculus of kidney) DENNY 07/28/23 [facility] - Nonobstructing L renal stones, measuring up to 8 mm. Appears to be obstructing stone within L renal pelvis measuring 11 mm. Mild L collecting system dilatation. KUB 08/10/23 [facility] - 16 x 9 mm stone suspected in L renal pelvis. A few small calcifications in LIP No appreciable ureteral stones. Reports he had one stone years ago, passed on own. Discussed intervention options including extracorporeal shockwave lithotripsy vs ureteroscopy with laser lithotripsy/stone basket extraction possible stent. Risks/benefits of each were discussed. If a stent is placed, pt understands this is not permanent and needs to be removed or exchanged within 3 months to prevent encrustation, infection, permanent renal damage and need for more invasive procedures. -Will schedule Cysto and L ESWL. The procedure risks, benefits, details and treatment alternatives have been discussed with the patient. These include blood urine, infection, bleeding around the kidney, kidney bruising, inability to break up the stone, need for blood transfusion, stent pain, injury to the ureter, bladder irritation from the stent, flank pain, and need for additional procedures, among others. Full informed consent has been obtained. Will order General anesthesia. 2. Microscopic hematuria (R31.29: Other microscopic hematuria) DENNY 07/28/23 [facility] - Unremarkable bladder. Micro UA 07/07/23 - 2-5 RBCs. UA today shows moderate blood. Denies ever seeing visible blood in his urine. Advised pt smoking is highest risk factor for bladder cancer. Discussed options. The patient is aware that a distinct etiology of the hematuria may not be clear upon conclusion of the workup. Will initiate hematuria workup to include upper urinary tract imaging, as well as evaluation of the urinary cells with urine cytology and possible a FISH test. A cystoscopy will be scheduled to rule out lower urinary tract pathology. The rationale for this workup has been discussed, and all questions have been answered. Informed consent will be obtained. Prophylactic antibiotics will be given. -Urine sample sent for cytology. -Schedule cystoscopy, see #1 3. Feeling of incomplete bladder emptying (R39.14: Feeling of incomplete bladder emptying) IPSS 5, QoL 3. Does not always feel he empties well. PVR today 57 mL. UA today negative for infection. Discussed possible (more content not included)... Normal [facility] Comment on above: Result Comment: Elec tronically Signed By: Abdifatah ESCOBEDO MD\.br\Date and Time Signed: 08/14/23 11:19 EDT\.br\Electronically Co-Signed By: Almaz Beavers\.br\Date and Time Co-Signed: 08/14/23 11:09 EDT ALL CBC WITH AUTO DIFFon BASOPHILS ABSOLUTE AUTO 0.1 [facility] Basophils/100 WBC (Bld) 1.3 % 0.2 - 2.0 % [facility] Eosinophils/100 WBC (Bld) 4.1 % 0.9 - 7.0 % [facility] Erythrocyte distribution width (RBC) [Ratio] 12.3 % 11.0 - 15.0 % [facility] Hematocrit (Bld) [Volume fraction] 45.4 % 42.0 - 54.0 % [facility] [Mass/Vol] 15.3 g/dL 14.0 - 18.0 g/dL [facility] IMMATURE GRANULOCYTES ABS AUTO 0.01 [facility] Immature granulocytes/100 WBC (Bld) 0.1 % 0.0 - 0.5 % [facility] Interpretation and review of laboratory results Abnormal [facility] LYMPHOCYTES ABSOLUTE AUTO 1.9 [facility] Lymphocytes/100 WBC (Bld) 26.4 % 20.5 - 60.0 % [facility] MCH (RBC) [Entitic mass] 32.6 pg 25.9 - 34.[address] [facility] MCHC (RBC) [Mass/Vol] 33.7 g/dL 29.9 - 35.2 g/dL [facility] MCV (RBC) [Entitic vol] 96.6 fL High 80.0 - 94.[address] [facility] MONOCYTES ABSOLUTE AUTO 0.8 [facility] Monocytes/100 WBC (Bld) 11.3 % 1.7 - 12.0 % [facility] NEUTROPHILS ABSOLUTE AUTO 4.0 [facility] Neutrophils/100 WBC (Bld) 56.8 % 43.0 - 75.0 % [facility] Platelet mean volume (Bld) [Entitic vol] 9.8 fL 9.5 - 13.5 fL [facility] EO # 0.3 [facility] PLT 192 [facility] RBC 4.70 [facility] WBC 7.0 [facility] GLYCOHEMOGLOBIN A1Con 2022 ADA RECOMMENDATION SEE BELOW Normal [facility] Comment on above: Result Comment: ADA RECOMMENDED LIMIT 4.0 - 6.0 ADA THERAPEUTIC TARGET < 7.0 ACTION SUGGESTED > 7.0 Performed By: #### A 1C #### [facility] [address] [address] [address] Abbi Porter Glucose [Mass/Vol] 114 mg/dL Normal [facility] Comment on above: Performed By: #### A 1C #### [facility] [address] [address] [address] Abbi Porter HbA1c (Bld) [Mass fraction] 5.6 % Normal 4.5-6.2 [facility] Comment on above: Performed By: #### A 1C #### [facility] [address] [place] [address] Dr. Abbi Porter CBC AUTO DIFFon 11-24-2021 BASO # 0.1 103/ul Normal 0.0-0.1 [facility] Comment on above: Performed By: #### C BC #### [facility] [address] [place] [address] Dr. Abbi Porter Basophils/100 WBC (Bld) 1.1 % Normal 0.2-2.0 [facility] Comment on above: Performed By: #### C BC #### [facility] [address] [place] [address] Dr. Abbi Porter EO # 0.2 103/ul Normal 0.0-0.7 [facility] Comment on above: Performed By: #### C BC #### [facility] [address] [place] [address] Dr. Abbi Porter Eosinophils/100 WBC (Bld) 3.7 % Normal 0.9-7.0 [facility] Comment on above: Performed By: #### C BC #### [facility] [address] [place] [address] Dr. Abbi Porter Erythrocyte distribution width (RBC) [Ratio] 12.8 % Normal 11.0-15.0 [facility] Comment on above: Performed By: #### C BC #### [facility] [address] [place] [address] Dr. Abbi Porter Hematocrit (Bld) [Volume fraction] 44.8 % Normal 42.0-54.0 [facility] Comment on above: Performed By: #### C BC #### [facility] [address] [place] [address] Dr. Abbi Porter Hemoglobin (Bld) [Mass/Vol] 15.3 g/dL Normal 14.0-18.0 [facility] Comment on above: Performed By: #### C BC #### [facility] [address] [place] [address] Dr. Abbi Porter IG # 0.01 10e3/ul Normal 0.00-0.03 [facility] Comment on above: Performed By: #### C BC #### [facility] [address] [place] [address] Dr. Abbi Porter IG % 0.2 % Normal 0.0-0.5 [facility] Comment on above: Performed By: #### C BC #### [facility] [address] [place] [address] Dr. Abbi Porter LYMPH # 1.9 103/ul Normal 1.2-3.8 [facility] Comment on above: Performed By: #### C BC #### [facility] [address] [place] [address] Dr. Abbi Porter Lymphocytes/100 WBC (Bld) 28.4 % Normal 20.5-60.0 [facility] Comment on above: Performed By: #### C BC #### [facility] [address] [place] [address] Dr. Abbi Porter MANUAL DIFF REQ NO Normal [facility] Comment on above: Performed By: #### C BC #### [facility] [address] [place] [address] Dr. Abbi Porter MCH (RBC) [Entitic mass] 33.0 pg Normal 25.9-34.0 [facility] Comment on above: Performed By: #### C BC #### [facility] [address] [place] [address] Dr. Abbi Porter MCHC (RBC) [Mass/Vol] 34.2 g/dL Normal 29.9-35.2 [facility] Comment on above: Performed By: #### C BC #### [facility] [address] [place] [address] Dr. Abbi Porter MCV (RBC) [Entitic vol] 96.6 fL Critically high 80.0-94.0 [facility] Comment on above: Performed By: #### C BC #### [facility] [address] [place] [address] Dr. Abbi Porter MONO # 0.7 103/ul Normal 0.3-0.8 [facility] Comment on above: Performed By: #### C BC #### [facility] [address] [place] [address] Dr. Abbi Porter Monocytes/100 WBC (Bld) 10.7 % Normal 1.7-12.0 [facility] Comment on above: Performed By: #### C BC #### [facility] [address] [place] [address] Dr. Abbi Porter NEUT # 3.7 103/ul Normal 1.4-6.5 [facility] Comment on above: Performed By: #### C BC #### [facility] [address] [place] [address] Dr. Abbi Porter Neutrophils/100 WBC (Bld) 55.9 % Normal 43.0-75.0 [facility] Comment on above: Performed By: #### C BC #### [facility] [address] [place] [address] Dr. Abbi Porter Platelet mean volume (Bld) [Entitic vol] 10.6 fL Normal 9.5-13.5 [facility] Comment on above: Performed By: #### C BC #### [facility] [address] [place] [address] Dr. Abbi Porter PLT 233 103/ul Normal 150-450 [facility] Comment on above: Performed By: #### C BC #### [facility] [address] [place] [address] Dr. Abbi Porter RBC 4.64 106/ul Critically low 4.70-6.10 [facility] Comment on above: Performed By: #### C BC #### [facility] [address] [place] [address] Dr. Abbi Porter WBC 6.6 103/ul Normal 4.0-11.0 [facility] Comment on above: Performed By: #### C BC #### [facility] [address] [place], [place] [address] Dr. Abbi Porter CULTURE URINEon 11-24-2021 CULTURE URINE Culture Observations: NO GROWTH. Normal [facility] Comment on above: Performed By: #### U RCX #### [facility] [address] [place] [address] Dr. Abbi Proter GLYCOHEMOGLOBIN A1Con 2021 ADA RECOMMENDATION SEE BELOW Normal [facility] Comment on above: Result Comment: ADA RECOMMENDED LIMIT 4.0 - 6.0 ADA THERAPEUTIC TARGET < 7.0 ACTION SUGGESTED > 7.0 Performed By: #### A 1C #### [facility] [address] [place] [address] Dr. Abbi Porter Glucose [Mass/Vol] 117 mg/dL Normal [facility] Comment on above: Performed By: #### A 1C #### [facility] [address] [place] [address] Dr. Abbi Porter HbA1c (Bld) [Mass fraction] 5.7 % Normal 4.5-6.2 [facility] Comment on above: Performed By: #### A 1C #### [facility] [address] [place] [address] Dr. Abbi Porter MICROALBUMIN, RAND URon 10-28 mALB 8.3 mg/L Normal <=30.0 [facility] Comment on above: Performed By: #### M ALBR #### [facility] [address] [place] [address] Dr. Abbi Porter PROF 14(COMP METB)on 022 Albumin [Mass/Vol] 4.2 g/dL Normal 3.4-5.0 [facility] Comment on above: Performed By: #### C MP #### [facility] [address] [place] [address] Dr. Abbi Porter Albumin/Globulin [Mass ratio] 1.4 {ratio} Normal [facility] Comment on above: Performed By: #### C MP #### [facility] [address] [place] [address] Dr. Abbi Porter ALP [Catalytic activity/Vol] 66 U/L Normal 46-116 [facility] Comment on above: Performed By: #### C MP #### [facility] [address] [place] [address] Dr. Abbi Porter ALT [Catalytic activity/Vol] 34 U/L Normal 16-63 [facility] Comment on above: Performed By: #### C MP #### [facility] [address] [address] [address] Abbi Porter Anion gap [Moles/Vol] 14.2 mmol/L Normal [facility] Comment on above: Performed By: #### C MP #### [facility] [address] [address] [address] Abbi Porter AST [Catalytic activity/Vol] 19 U/L Normal 15-37 [facility] Comment on above: Performed By: #### C MP #### [facility] [address] [address] [address] Abbi Porter Bilirubin [Mass/Vol] 0.4 mg/dL Normal 0.2-1.0 [facility] Comment on above: Performed By: #### C MP #### [facility] [address] [address] [address] Abbi Porter Calcium [Mass/Vol] 9.2 mg/dL Normal 8.5-10.1 [facility] Comment on above: Performed By: #### C MP #### [facility] [address] [address] [address] Abbi Porter Chloride [Moles/Vol] 103 mmol/L Normal 98-107 [facility] Comment on above: Performed By: #### C MP #### [facility] [address] [address] [address] Abbi Porter CO2 [Moles/Vol] 29.9 mmol/L Normal 21.0-32.0 [facility] Comment on above: Performed By: #### C MP #### [facility] [address] [address] [address] Abbi Porter Creatinine [Mass/Vol] 0.95 mg/dL Normal 0.70-1.30 [facility] Comment on above: Performed By: #### C MP #### [facility] [address] [place] [address] Dr. Abbi Porter EGFR-AF ALGERIAN >60 Normal >=60 [facility] Comment on above: Performed By: #### C MP #### [facility] [address] [address] [address] Abbi Porter EGFR-NON AF ALGERIAN >60 Normal >=60 [facility] Comment on above: Performed By: #### C MP #### [facility] [address] [address] [address] Abbi Porter Globulin (S) [Mass/Vol] 3.1 g/dL Normal [facility] Comment on above: Performed By: #### C MP #### [facility] [address] [address] [address] Abbi Porter Glucose [Mass/Vol] 111 mg/dL Critically high 74-106 [facility] Comment on above: Performed By: #### C MP #### [facility] [address] [place] [address] Dr. Abbi Porter Potassium [Moles/Vol] 4.1 mmol/L Normal 3.5-5.1 [facility] Comment on above: Performed By: #### C MP #### [facility] [address] [place] [address] Dr. Abbi Porter Protein [Mass/Vol] 7.3 g/dL Normal 6.4-8.2 [facility] Comment on above: Performed By: #### C MP #### [facility] [address] [place] [address] Dr. Abbi Porter Sodium [Moles/Vol] 143 mmol/L Normal 136-145 [facility] Comment on above: Performed By: #### C MP #### [facility] [address] [place] [address] Dr. Abbi Porter Urea nitrogen [Mass/Vol] 19.0 mg/dL Critically high 7.0-18.0 [facility] Comment on above: Performed By: #### C MP #### [facility] [address] [place] [address] Dr. Abbi Porter Urea nitrogen/Creatinine [Mass ratio] 20.0 mg/mg Normal [facility] Comment on above: Performed By: #### C MP #### [facility] [address] [place] [address] Dr. Abbi Porter UA RANDOM W/MICROSCOPICon BACTERIA NONE SEEN Normal NONE SEEN [facility] Comment on above: Performed By: #### U AMIC #### [facility] [address] [address] [address] Abbi Porter Bilirubin Ql (U) Negative Normal NEGATIVE [facility] Comment on above: Performed By: #### U AMIC #### [facility] [address] [address] [address] Abbi Porter CAST NONE SEEN Normal NONE SEEN [facility] Comment on above: Performed By: #### U AMIC #### [facility] [address] [address] [address] Abbi Porter Clarity (U) CLEAR Normal CLEAR [facility] Comment on above: Performed By: #### U AMIC #### [facility] [address] [place] [address] Dr. Abbi Porter Color (U) LT. YELLOW Normal YELLOW [facility] Comment on above: Performed By: #### U AMIC #### [facility] [address] [place] [address] Dr. Abbi Porter Crystals LM Nom (Urine sed) NONE SEEN Normal NONE SEEN [facility] Comment on above: Performed By: #### U AMIC #### [facility] [address] [address] [address] Abbi Porter Epithelial cells LM Ql (Urine sed) FEW Abnormal NONE SEEN /RARE [facility] Comment on above: Performed By: #### U AMIC #### [facility] [address] [address] [address] Abbi Porter Glucose Ql (U) Negative Normal NEGATIVE [facility] Comment on above: Performed By: #### U AMIC #### [facility] [address] [address] [address] Abbi Porter Hemoglobin Ql (U) LARGE Abnormal NEGATIVE [facility] Comment on above: Performed By: #### U AMIC #### [facility] [address] [place] [address] Dr. Abbi Porter Ketones Ql (U) Negative Normal NEGATIVE [facility] Comment on above: Performed By: #### U AMIC #### [facility] [address] [place] [address] Dr. Abbi Porter LEUKOCYTES TRACE Abnormal NEGATIVE [facility] Comment on above: Performed By: #### U AMIC #### [facility] [address] [place] [address] Dr. Abbi Porter MUCOUS NONE SEEN Normal NONE SEEN [facility] Comment on above: Performed By: #### U AMIC #### [facility] [address] [address] [address] Abbi Porter Nitrite Ql (U) Negative Normal NEGATIVE [facility] Comment on above: Performed By: #### U AMIC #### [facility] [address] [place] [address] Dr. Abbi Porter pH (U) 5.5 [pH] Normal 5-9 [facility] Comment on above: Performed By: #### U AMIC #### [facility] [address] [place] [address] Dr. Abbi Porter RBC 0-2 Normal 0-2 [facility] Comment on above: Performed By: #### U AMIC #### [facility] [address] [place] [address] Dr. Abbi Porter SPEC GRAVITY 1.025 Normal 1.005-<=1.025 [facility] Comment on above: Performed By: #### U AMIC #### [facility] [address] [place] [address] Dr. Abbi Porter UA PROTEIN Negative Normal NEGATIVE/ TRACE [facility] Comment on above: Performed By: #### U AMIC #### [facility] [address] [place] [address] Dr. Abbi Porter Urobilinogen Qn (U) 0.2 {Candice'U}/dL Normal 0.2 - 1. 0 [facility] Comment on above: Performed By: #### U AMIC #### [facility] [address] [place] [address] Dr. Abbi Porter WBC 10-20 Abnormal NONE SEEN [facility] Comment on above: Performed By: #### U AMIC #### [facility] [address] [place], [place] [address] Dr. Abbi Porter AMYLASEon 06-04-2019 Amylase [Catalytic activity/Vol] 86 U/L Normal 28-100 [facility] Comment on above: Performed By: #### 4 [id number] #### [address] [address] CBC and diff (cpt 48625)on 0 06-04-2019 Basophils (Bld) [#/Vol] 0.03 10*3/uL Normal 0.00-0.07 [facility] Comment on above: Performed By: #### 4 #### [address] [address] Basophils/100 WBC (Bld) 0.4 % Normal 0.0-2.0 [facility] Comment on above: Performed By: #### 4 #### [address] [address] Eosinophils (Bld) [#/Vol] 0.21 10*3/uL Normal 0.00-0.47 [facility] Comment on above: Performed By: #### 4 #### [address] [address] Eosinophils/100 WBC (Bld) 2.7 % Normal 0.0-7.0 [facility] Comment on above: Performed By: #### 4 #### [address] [address] Erythrocyte distribution width (RBC) [Ratio] 13.1 % Normal 11.5-14.0 [facility] Comment on above: Performed By: #### 4 [id number] #### [address] [address] Hematocrit (Bld) [Volume fraction] 42.2 % Normal 36.0-52.0 [facility] Comment on above: Performed By: #### 4 #### [address] [address] Hemoglobin (Bld) [Mass/Vol] 14.6 g/dL Normal 12.2-18.0 [facility] Comment on above: Performed By: #### 4 [id number] #### [address] [address] Immature granulocytes (Bld) [#/Vol] 0.02 10*3/uL Normal 0.00-0.06 [facility] Comment on above: Performed By: #### 4 732751 #### [address] [address] Immature granulocytes/100 WBC (Bld) 0.3 % Normal 0.0-1.0 [facility] Comment on above: Performed By: #### 4 [id number] #### [address] [address] Lymphocytes (Bld) [#/Vol] 2.10 10*3/uL Normal 0.98-3.82 [facility] Comment on above: Performed By: #### 4 [id number] #### [address] [address] Lymphocytes/100 WBC (Bld) 27.5 % Normal 20.0-45.0 [facility] Comment on above: Performed By: #### 4 236405 #### [address] [address] MCH (RBC) [Entitic mass] 32.4 pg Normal 27.0-34.0 [facility] Comment on above: Performed By: #### 4 878344 #### [address] [address] MCHC (RBC) [Mass/Vol] 34.6 g/dL Normal 33.0-37.0 [facility] Comment on above: Performed By: #### 4 643125 #### [address] [address] MCV (RBC) [Entitic vol] 94 fL Normal 80-100 [facility] Comment on above: Performed By: #### 4 [id number] #### [address] [address] Monocytes (Bld) [#/Vol] 0.64 10*3/uL Normal 0.28-0.96 [facility] Comment on above: Performed By: #### 4 [id number] #### [address] [address] Monocytes/100 WBC (Bld) 8.4 % Normal 2.0-12.0 [facility] Comment on above: Performed By: #### 4 245435 #### [address] [address] Neutrophils (Bld) [#/Vol] 4.64 10*3/uL Normal 1.67-7.79 [facility] Comment on above: Performed By: #### 4 #### [address] [address] Neutrophils/100 WBC (Bld) 60.7 % Normal 40.0-65.0 [facility] Comment on above: Performed By: #### 4 814436 #### [address] [address] Platelets (Bld) [#/Vol] 185 10*3/uL Normal 120-400 [facility] Comment on above: Performed By: #### 4 #### [address] [address] RBC (Bld) [#/Vol] 4.51 10*6/uL Normal 4.00-5.70 [facility] Comment on above: Performed By: #### 4 168984 #### [address] [address] WBC (Bld) [#/Vol] 7.64 10*3/uL Normal 3.80-10.00 [facility] Comment on above: Performed By: #### 4 #### [address] [address] COMPREHENSIVE MET PANELon Albumin [Mass/Vol] 4.50 g/dL Normal 3.50-5.20 [facility] Comment on above: Performed By: #### 4 769248 #### [address] [address] Albumin/Globulin [Mass ratio] 1.7 Normal 0.8-2.4 [facility] Comment on above: Performed By: #### 4 [id number] #### [address] [address] ALP [Catalytic activity/Vol] 60 U/L Normal 40-130 [facility] Comment on above: Performed By: #### 4 769815 #### [address] [address] ALT No additional P-5'-P [Catalytic activity/Vol] 30 [iU]/L Normal <41 [facility] Comment on above: Performed By: #### 4 [id number] #### [address] [address] Anion gap [Moles/Vol] 17 mmol/L Normal 9-20 [facility] Comment on above: Performed By: #### 4 984771 #### [address] [address] AST [Catalytic activity/Vol] 24 U/L Normal <40 [facility] Comment on above: Performed By: #### 4 053211 #### [address] [address] Bilirubin [Mass/Vol] 0.19 mg/dL Normal <1.20 [facility] Comment on above: Performed By: #### 4 [id number] #### [address] [address] Calcium [Mass/Vol] 9.5 mg/dL Normal 8.6-10.0 [facility] Comment on above: Performed By: #### 4 852457 #### [address] [address] Chloride [Moles/Vol] 101.3 mmol/L Normal 98.0-107.0 [facility] Comment on above: Performed By: #### 4 836839 #### [address] [address] Creatinine [Mass/Vol] 0.88 mg/dL Normal 0.67-1.17 [facility] Comment on above: Performed By: #### 4 564138 #### [address] [address] GFR/1.73 sq M.predicted MDRD (S/P/Bld) [Vol rate/Area] mL/min/{1.73_m2} Normal [facility] Comment on above: Result Comment: Glo erular Filtration Rate (eGFR) eGFR units: mL/min/1.73 [...] or www. niddk.nih.gov Performed By: #### 4 987471 #### [address] [address] Glucose [Mass/Vol] 123 mg/dL High 74-106 [facility] Comment on above: Performed By: #### 4 642190 #### [address] [address] HCO3 [Moles/Vol] 25.2 mmol/L Normal 22.0-29.0 [facility] Comment on above: Performed By: #### 4 915017 #### [address] [address] Potassium [Moles/Vol] 4.71 mmol/L Normal 3.40-5.10 [facility] Comment on above: Performed By: #### 4 811199 #### [address] [address] Protein [Mass/Vol] 7.1 g/dL Normal 6.4-8.3 [facility] Comment on above: Performed By: #### 4 119110 #### [address] [address] Sodium [Moles/Vol] 139 mmol/L Normal 136-145 [facility] Comment on above: Performed By: #### 4 102219 #### [address] [address] Urea nitrogen [Mass/Vol] 16.4 mg/dL Normal 6.0-20.0 [facility] Comment on above: Performed By: #### 4 104322 #### [address] [address] CRP (inflammation) cpt 69253 on 06-04-2019 CRP [Mass/Vol] 5.7 mg/L High <5.0 [facility] Comment on above: Performed By: #### 4 332718 #### [address] [address] [address] ABD PELVISon 06-04-2019 CT ABD PELVIS ---------NAME------- -- NUMBER SEX AGE ADMIT DISC. XRAY# F/C TYPE ZIA Yeung [id number] M 54 06/04/19 [id number] [facility] [place] OF : 1965 M/R# [id number] #: [id number] ED-06 LOCATION: EMERGENCY DEPT TRANSCRIBED: 06/04/19 12:[address] ABD PELVIS [id number] COMPLETED:06/04/19 12:21 [facility] [address] Reason(s): Abdominal Pain Flank Pain PHYSICIAN: [facility] OTHER PHYS W A Y N E H E A L T H C A R E R A D I O L O G Y R E P O R T [address] [place] [address] PROCEDURE: CT ABD PELVIS DATE OF EXAM: [...] HERNAN LAMBERT MD 06/04/2019 12:36 PM Normal [facility] LIPASEon 06-04-2019 Lipase [Catalytic activity/Vol] 38 U/L Normal 13-60 [facility] Comment on above: Performed By: #### 4 630305 #### [address] [address] URINALYSIS reflex CULTUREon 06-04-2019 Bacteria LM Ql (Urine sed) TRACE Abnormal NONE SEEN [facility] Comment on above: Performed By: #### 4 958504 #### [address] [address] Bilirubin Ql (U) Negative Normal NEGATIVE [facility] Comment on above: Performed By: #### 4 880378 #### [address] [address] Clarity Refractometry automated (U) CLEAR Normal CLEAR [facility] Comment on above: Performed By: #### 4 691015 #### [address] [address] Color (U) YELLOW Normal YELLOW [facility] Comment on above: Performed By: #### 4 573694 #### [place] [id number] Epithelial cells.squamous LM.HPF (Urine sed) [#/Area] 7-10 Normal [facility] Comment on above: Performed By: #### 4 683531 #### [address] [address] Glucose Ql (U) 250 mg/dL Abnormal NEGATIVE [facility] Comment on above: Performed By: #### 4 065372 #### [address] [address] Hemoglobin Auto test strip Ql (U) MODERATE Abnormal NEGATIVE [facility] Comment on above: Performed By: #### 4 703167 #### [address] [address] Ketones Ql (U) Negative Normal NEGATIVE [facility] Comment on above: Performed By: #### 4 500923 #### [address] [address] Leukocyte esterase Auto test strip Ql (U) Negative Normal NEGATIVE [facility] Comment on above: Performed By: #### 4 108528 #### [address] [address] Mucus Ql (Urine sed) 1+ [LPF] Normal [facility] Comment on above: Performed By: #### 4 884880 #### [address] [address] Nitrite Ql (U) Negative Normal NEGATIVE [facility] Comment on above: Performed By: #### 4 059022 #### [address] [address] pH (U) 5.5 Normal 5-8 [facility] Comment on above: Performed By: #### 4 777927 #### [place] [address] Protein Ql (U) Negative Normal NEGATIVE [facility] Comment on above: Performed By: #### 4 087031 #### [place] [address] RBC LM.HPF (Urine sed) [#/Area] 15-20 Abnormal 0-2 [facility] Comment on above: Performed By: #### 4 002353 #### [place] [address] Specific gravity (U) [Rel density] >=1.030 Abnormal <=1.005-1.025 [facility] Comment on above: Performed By: #### 4 135802 #### [place] [address] Type of Urine collection method CLEAN CATCH-CC Normal [facility] Comment on above: Performed By: #### 4 209390 #### [place] [address] URINALYSIS reflex CULTURE Normal [facility] Comment on above: Result Comment: URIN ALYSIS with Reflex to CULTURE Performed By: #### 4 408093 #### [place] [address] Urobilinogen Test strip Ql (U) 0.2 {EhrlichU}/dL Normal 0.2-1.0 [facility] Comment on above: Performed By: #### 4 [id number] #### [place] [address] WBC LM.HPF (Urine sed) [#/Area] 4-6 Abnormal 0-3 [facility] [facility] Comment on above: Performed By: #### [id number] #### [place] [id number] Vital Signs Date Time Vital Sign Value Performing Clinician Facility 08-14-2023 10:33-0400 Blood Pressure Location Abdifatah ESCOBEDO [facility] 08-14-2023 10:33-0400 Body temperature 96.8 [degF] Abdifatah ESCOBEDO [facility] 08-14-2023 10:33-0400 Diastolic blood pressure 80 mm[Hg] Abdifatah ESCOBEDO [facility] 08-14-2023 10:33-0400 Heart rate 88 /min Abdifatah ESCOBEDO [facility] 08-14-2023 10:33-0400 Systolic blood pressure 138 mm[Hg] Abdifatah ESCOBEDO [facility] 06-29-2023 18:14-0500 Body height 172.7 cm Lizeth Van GYM INSTRUCTOR Work Phone: [facility] 06-29-2023 18:14-0500 Body mass index (BMI) [Ratio] 32.39 kg/m2 Lizeth Van GYM INSTRUCTOR Work Phone: [facility] 06-29-2023 18:14-0500 Body temperature 97.5 [degF] Lizeth Rehan GYM INSTRUCTOR Work Phone: [facility] 06-29-2023 18:14-0500 Body weight 96.62 kg Lizeth Rehan GYM INSTRUCTOR Work Phone: [facility] 06-29-2023 18:14-0500 Diastolic blood pressure 70 mm[Hg] Lizeth Rehan GYM INSTRUCTOR Work Phone: [facility] 06-29-2023 18:14-0500 Heart rate 80 /min Lizeth Jocelinez GYM INSTRUCTOR Work Phone: [facility] 06-29-2023 18:14-0500 Respiratory rate 19 /min Lizeth Jocelinez GYM INSTRUCTOR Work Phone: [facility] 06-29-2023 18:14-0500 SaO2% (BldA) [Mass fraction] 96 % Lizethkemar Van GYM INSTRUCTOR Work Phone: [facility] 06-29-2023 18:14-0500 Systolic blood pressure 120 mm[Hg] Lizeth Boykinmaribel GYM INSTRUCTOR Work Phone: [facility] Encounters Encounter Date Encounter Type Care Provider Facility Start: 08-31-2023 ambulatory Abdifatah ESCOBEDO Facility :CD:[id number] Start: 08-14-2023 End: 08-15-2023 ambulatory LIZETH Douglas HANSENMicheleMARIBEL Facility: [facility] Start: 08-14-2023 End: 08-14-2023 Patient encounter procedure Abdifatah ESCOBEDO [facility] Start: 08-02-2023 ambulatory LIZETH VAN Facility: [facility] Start: 07-07-2023 Clinisync Result Encounter Lizeth Boykinmaribel GYM INSTRUCTOR Work Phone: [facility] Unsolicited Start: 07-07-2023 Clinisync Result Encounter Lizeth Boykinmaribel GYM INSTRUCTOR Work Phone: [facility] Unsolicited Start: 06-29-2023 End: 06-29-2023 ambulatory LIZETH BOYKINREREToyin Not Available Start: 06-29-2023 End: 06-29-2023 Office outpatient visit 25 minutes Lizeth Juan Ramonmichelemaribel GYM INSTRUCTOR Work Phone: [facility] Comment on above: Hypertension, benign (CMS/HCC) (Primary Dx); Hematuria, microscopic; Prediabetes; BMI 32.0-32.9,adult; Hypertriglyceridemia (CMS/HCC); Tobacco dependence; Screening for prostate cancer; Essential (primary) hypertension (CMS/HCC) Start: 06-29-2023 Bamboo flowsheet Lizeth Jocelinez GYM INSTRUCTOR Work Phone: [facility] Start: 06-29-2023 Bamboo flowsheet Lizeth Jocelinez GYM INSTRUCTOR Work Phone: [facility] Start: 06-23-2022 End: 06-24-2022 ambulatory MAT CLEANING MACHINE OPERATOR LIZETH REHAN Facility: Start: 11-24-2021 End: 11-25-2021 ambulatory MAT CLEANING MACHINE OPERATOR LIZETH AICHHOLZ Facility: Start: 11-20-2017 Ambulatory Physician [facility]Referral [facility] Procedures Date Procedure Procedure Detail Performing Clinician Start: 07-07-2023 ALL CBC WITH AUTO DIFF Lizeth Van GYM INSTRUCTOR Work Phone: Start: 11-24-2021 PSA screening OUSMANE VAN Comment on above: Performed By: #### P [facility] #### [facility] [address] [place] [address] Dr. Abbi Porter Tonsillectomy Abdifatah ESCOBEDO Plan of Treatment Date Care Activity Detail Author Start: 02-27-2024 Screening for malignant neoplasm of colon [facility] Start: 01-01-2024 End: 01-01-2024 Patient encounter procedure 01/01/2024 7:20 PM EDT Office Visit [facility] [address] [place] [address] Lizeth Van, FORTUNATO [address] [place] [id number] [facility] Start: 06-29-2023 End: 06-29-2023 Patient encounter procedure 06/29/2023 6:15 PM EST Office Visit [facility] [address] [place] [address] Lizeth Van NP [address] [place] [id number] Hypertension, benign (CMS/HCC) (Primary Dx); Hematuria, microscopic; Prediabetes; Obesity with body mass index (BMI) of 30.0 to 39.9; Hypertriglyceridemia (CMS/HCC); Tobacco dependence; Screening for prostate cancer [facility] Comment on above: Hypertension, benign (CMS/HCC) (Primary Dx); Hematuria, microscopic; Prediabetes; Obesity with body mass index (BMI) of 30.0 to 39.9; Hypertriglyceridemia (CMS/HCC); Tobacco dependence; Screening for prostate cancer Start: 06-29-2023 End: 06-29-2024 CBC W Auto Differential panel - Blood CBC and differential Lab Routine Hematuria, microscopic Expected: 06/29/2023 (Approximate), Expires: 06/29/2024 [facility] Work Phone: Comment on above: Expected: 06/29/2023 (Approximate), Expi res: 06/29/2024 Start: 06-29-2023 End: 06-29-2024 Comprehensive metabolic 2000 panel - Serum or Plasma Comprehensive metabolic panel Lab Routine Hypertension, benign (CMS/HCC) Hematuria, microscopic Prediabetes Hypertriglyceridemia (CMS/HCC) Expected: 06/29/2023 (Approximate), Expires: 06/29/2024 [facility] Comment on above: Expected: 06/29/2023 (Approximate), Expi res: 06/29/2024 Start: 06-29-2023 End: 06-29-2024 Lipid 1996 panel - Serum or Plasma Lipid panel Lab Routine Prediabetes Hypertriglyceridemia (CMS/HCC) Expected: 06/29/2023 (Approximate), Expires: 06/29/2024 [facility] Comment on above: Expected: 06/29/2023 (Approximate), Expi res: 06/29/2024 Start: 06-29-2023 End: 06-29-2024 Microalbumin/Creatinin e panel in random Urine Microalbumin / creatinine, urine ratio Lab Routine Hypertension, benign (CMS/HCC) Prediabetes Expected: 06/29/2023 (Approximate), Expires: 06/29/2024 [facility] Comment on above: Expected: 06/29/2023 (Approximate), Expi res: 06/29/2024 Start: 06-29-2023 End: 06-29-2024 Prostate specific Ag [Mass/volume] in Serum or Plasma PSA Lab Routine Screening for prostate cancer Expected: 06/29/2023 (Approximate), Expires: 06/29/2024 [facility] Comment on above: Expected: 06/29/2023 (Approximate), Expi res: 06/29/2024 Start: 06-29-2023 End: 06-29-2024 Urinalysis complete panel - Urine Urinalysis with reflex microscopic (clean catch) Lab Routine Hypertension, benign (CMS/HCC) Hematuria, microscopic Prediabetes Expected: 06/29/2023 (Approximate), Expires: 06/29/2024 [facility] Comment on above: Expected: 06/29/2023 (Approximate), Expi res: 06/29/2024 Start: 01-27-2023 Influenza vaccination Influenza Vaccine (#1) [facility] Start: 1965 Screening for malignant neoplasm of colon [facility] Payers Date Payer Category Payer Unknown [id number] 2018 Unknown BCBS BCBS xxxxxx [id number] 2018-Present [phone] [address] [place] [address] [id number] 2016 Unknown [id number] 1967 Unknown [id number] 1967 Unknown [id number] 1967 Unknown [id number] 1967 Unknown [id number] 1967 Unknown [id number] 1959 Unknown [id number] Social History Date Type Detail Facility Tobacco smoking stat [facility] Tobacco smoking consumption unknown [facility] Start: 06-22-2023 End: 06-29-2023 History of Social function [facility] Start: 06-22-2023 End: 06-29-2023 Humiliation, Afraid, Rape, and Kick questionnaire [HARK] [facility] Within the last year , have you been afraid of your partner or ex-partner? No [facility] Do you belong to any clubs or organizations such as christian groups, unions, fraternal or athletic groups, or [...] Not at all [facility] (I/We) worried whedelroy er (my/our) food would run out before (I/we) got money to buy more. Never true [facility] Start: 1965 Sex Assigned At Not on file [facility] Start: 06-15-2023 Gender identity Identifies as male gender (finding) [facility] Start: 06-29-2023 Tobacco smoking status NHIS Smokes tobacco daily [facility] History of tobacco use Cigarette Smoker [facility] Start: 06-29-2023 Tobacco use and exposure Smokeless tobacco non-user [facility] Start: 06-29-2023 Alcohol intake Ex-drinker (finding) [facility] Start: 06-29-2023 Alcohol Comment caffine: coffee 2-3 daily [facility] Start: 08-14-2023 Tobacco smoking status Heavy tobacco smoker (finding) [facility] Functional Status Date Assessment Result Facility 08-14-2023 Functional Status N/A [facility] Evaluation + Plan note 08-14-2023 Note Date & Type Note Facility 08-14-2023 Evaluation + Plan note Diagnostic Tests PendingBUN 08/14/23CBC w/ Auto Diff 08/14/23Creatinine 08/14/23Electrolyte Panel 08/14/23PT & PTT 08/14/23 [facility] Hospital Discharge instructions 08-14-2023 Note Date & Type Note Facility 08-14-2023 Hospital Discharg e instructions Patient Education 08/14/2023 10:58:03 Cystoscopy Cystoscopy Cystoscopy is a procedure that is used to help diagnose and sometimes treat conditions that affect the lower urinary tract. The lower urinary tract includes the bladder and the urethra. The urethra is the tube that drains urine from the bladder. Cystoscopy is done using a thin, tube-shaped instrument with a light and camera at the end (cystoscope). The cystoscope may be hard or flexible, depending on the goal of the procedure. The cystoscope is inserted through the urethra, into the bladder. Cystoscopy may be recommended if you have: Urinary tract infections that keep coming back. Blood in the urine (hematuria). An inability to control when you urinate (urinary incontinence) or an overactive bladder. Unusual cells found in a urine sample. A blockage in the urethra, such as a urinary stone. Painful urination. An abnormality in the bladder found during an intravenous pyelogram (IVP) or CT scan. Cystoscopy may also be done to remove a sample of tissue to be examined under a microscope (biopsy). Tell a health care provider about: Any allergies you have. All medicines you are taking, including vitamins, herbs, eye drops, creams, and fjzf-ext-sxiwmyj medicines. Any problems you or family members have had with anesthetic medicines. Any blood disorders you have. Any surgeries you have had. Any medical conditions you have. Whether you are or may be . What are the risks? Generally, this is a safe procedure. However, problems may occur, including: Infection. Bleeding. Allergic reactions to medicines. Damage to other structures or organs. What happens before the procedure? Medicines Ask your health care provider about: Changing or stopping your regular medicines. This is especially important if you are taking diabetes medicines or blood thinners. Taking medicines such as aspirin and ibuprofen. These medicines can thin your blood. Do not take these medicines unless your health care provider tells you to take them. Taking jfsk-thq-njwifaz medicines, vitamins, herbs, and supplements. Tests You may have an exam or testing, such as: X-rays of the bladder, urethra, or kidneys. CT scan of the abdomen or pelvis. Urine tests to check for signs of infection. General instructions Follow instructions from your health care provider about eating or drinking restrictions. Ask your health care provider what steps will be taken to help prevent infection. These steps may include: ?Washing skin with a germ-killing soap. ?Taking antibiotic medicine. Plan to have a responsible adult take you home from the hospital or clinic. What happens during the procedure? You will be given one or more of the following: ?A medicine to help you relax (sedative). ?A medicine to numb the area (local anesthetic). The area around the opening of your urethra will be cleaned. The cystoscope will be passed through your urethra into your bladder. Germ-free (sterile) fluid will flow through the cystoscope to fill your bladder. The fluid will stretch your bladder so that your health care provider can clearly examine your bladder kemp. Your doctor will look at the urethra and bladder. Your doctor may take a biopsy or remove stones. The cystoscope will be removed, and your bladder will be emptied. The procedure may vary among health care providers and hospitals. What can I expect after the procedure? After the procedure, it is common to have: Some soreness or pain in your abdomen and urethra. Urinary symptoms. These include: ?Mild pain or burning when you urinate. Pain should stop within a few minutes after you urinate. This may last for up to 1 week. ?A small amount of blood in your urine for several days. ?Feeling like you need to urinate but producing only a small amount of urine. Follow these instructions at home: Medicines Take bvfk-tzm-loftnxq and prescription medicines only as told by your health care provider. If you were prescribed an antibiotic medicine, take it as told by your health care provider. Do not stop taking the antibiotic even if you start to feel better. General instructions Return to your normal activities as told by your health care provider. Ask your health care provider what activities are safe for you. If you were given a sedative during the procedure, it can affect you for several hours. Do not drive or operate machinery until your health care provider says that it is safe. Watch for any blood in your urine. If the amount of blood in your urine increases, call your health care provider. Follow instructions from your health care provider about eating or drinking restrictions. If a tissue sample was removed for testing (biopsy) during your procedure, it is up to you to get your test results. Ask your health care provider, or the department that is doing the test, when your results will be ready. Drink enough fluid to keep your urine pale yellow. Keep all follow-up visits. This is important. Contact a health care provider if: You have pain that gets worse or does not get better with medicine, especially pain when you urinate. You have trouble urinating. You have more blood in your urine. Get help right away if: You have blood clots in your urine. You have abdominal pain. You have a fever or chills. You are unable to urinate. Summary Cystoscopy is a procedure that is used to help diagnose and sometimes treat conditions that affect the lower urinary tract. Cystoscopy is done using a thin, tube-shaped instrument with a light and camera at the end. After the procedure, it is common to have some soreness or pain in your abdomen and urethra. Watch for any blood in your urine. If the amount of blood in your urine increases, call your health care provider. If you were prescribed an antibiotic medicine, take it as told by your health care provider. Do not stop taking the antibiotic even if you start to feel better. This information is not intended to replace advice given to you by your health care provider. Make sure you discuss any questions you have with your health care provider. Document Revised: 01/26/2022 Document Reviewed: 12/25/2020 [employer] Patient Education 2022 [employer] 08/14/2023 10:56:32 Steps to Quit Smoking Steps to Quit Smoking Smoking tobacco is the leading cause of preventable . It can affect almost every organ in the body. Smoking puts you and those around you at risk for developing many serious chronic diseases. Quitting smoking can be very challenging. Do not get discouraged if you are not successful the first time. Some people need to make many attempts to quit before they achieve long-term success. Do your best to stick to your quit plan, and talk with your health care provider if you have any questions or concerns. How do I get ready to quit? When you decide to quit smoking, create a plan to help you succeed. Before you quit: Pick a date to quit. Set a date within the next 2 weeks to give you time to prepare. Write down the reasons why you are quitting. Keep this list in places where you will see it often. Tell your family, friends, and co-workers that you are quitting. Support from people you are close to can make quitting easier. Talk with your health care provider about your options for quitting smoking. Find out what treatment options are covered by your health insurance. Identify people, places, things, and activities that make you want to smoke (triggers). Avoid them. What first steps can I take to quit smoking? Throw away all cigarettes at home, at work, and in your car. Throw away smoking accessories, such as ashtrays and lighters. Clean your car. Make sure to empty the ashtray. Clean your home, including curtains and carpets. What strategies can I use to quit smoking? Talk with your health care provider about combining strategies, such as taking medicines while you are also receiving in-person counseling. Using these two strategies together makes you more likely to succeed in quitting than if you used either strategy on its own. If you are or , talk with your health care provider about finding counseling or other support strategies to quit smoking. Do not take medicine to help you quit smoking unless your health care provider tells you to. Quit right away Quit smoking completely, instead of gradually reducing how much you smoke over a period of time. Stopping smoking right away may be more successful than gradually quitting. Attend in-person counseling to help you build problem-solving skills. You are more likely to succeed in quitting if you attend counseling sessions regularly. Even short sessions of 10 minutes can be effective. Take medicine You may take medicines to help you quit smoking. Some medicines require a prescription. You can also purchase ibre-njh-fcssggf medicines. Medicines may have nicotine in them to replace the nicotine in cigarettes. Medicines may: Help to stop cravings. Help to relieve withdrawal symptoms. Your health care provider may recommend: Nicotine patches, gum, or lozenges. Nicotine inhalers or sprays. Non-nicotine medicine that you take by mouth. Find resources Find resources and support systems that can help you quit smoking and remain smoke-free after you quit. These resources are most helpful when you use them often. They include: Online chats with a counselor. Telephone quitlines. Printed self-help materials. Support groups or group counseling. Text messaging programs. Mobile phone apps or applications. Use apps that can help you stick to your quit plan by providing reminders, tips, and encouragement. Examples of free services include Quit Guide from the CDC and smokefree.gov What can I do to make it easier to quit? Reach out to your family and friends for support and encouragement. Call telephone quitlines, such as 5-645-JPWU-NOW, reach out to support groups, or work with a counselor for support. Ask people who smoke to avoid smoking around you. Avoid places that trigger you to smoke, such as bars, parties, or smoke-break areas at work. Spend time with people who do not smoke. Lessen the stress in your life. Stress can be a smoking trigger for some people. To lessen stress, try: ?Exercising regularly. ?Doing deep-breathing exercises. ?Doing yoga. ?Meditating. What benefits will I see if I quit smoking? Over time, you should start to see positive results, such as: Improved sense of smell and taste. Decreased coughing and sore throat. Slower heart rate. Lower blood pressure. Clearer and healthier skin. The ability to breathe more easily. Fewer sick days. Summary Quitting smoking can be very challenging. Do not get discouraged if you are not successful the first time. Some people need to make many attempts to quit before they achieve long-term success. When you decide to quit smoking, create a plan to help you succeed. Quit smoking right away, not slowly over a period of time. Find resources and support systems that can help you quit smoking and remain smoke-free after you quit. This information is not intended to replace advice given to you by your health care provider. Make sure you discuss any questions you have with your health care provider. Document Revised: 05/06/2022 Document Reviewed: 05/06/2022 [employer] Patient Education 2022 [employer]. Follow Up Care 08/08/2023 14:04:41 With:FANNY MILLER, Abdifatah Sheppard, URL [address] [address]- When: Unknown Comments:sched cysto/L ESWL [facility] History of Present illness Narrative 06-29-2023 Lizeth [...] being taken. He does not see a fine unhairer.Eye exam is current. Hypertension This is a [...] 40 MG tablet documented in this encounter [facility] Healthcare Evaluation note Note Date & Type Note Facility Evaluation note Diagnosis Hypertension, benign (CMS/HCC)- Primary Essential hypertension, benign Hematuria, microscopic Microscopic hematuria Prediabetes Other abnormal glucose BMI 32.0-32.9,adult Hypertriglyceridemia (CMS/HCC) Pure hyperglyceridemia Tobacco dependence Tobacco use disorder Screening for prostate cancer Special screening for malignant neoplasm of prostate Essential (primary) hypertension (CMS/HCC) Unspecified essential hypertension documented in this encounter [facility] Hospital course Narrative Note Date & Type Note Facility Hospital course Narrative No data available for this section [facility] Progress note Note Date & Type Note Facility Progress note No data available for this section [facility] Summary Purpose Family History No Family History Records FoundNo Family History Records FoundNo Family History Records FoundNo Family History Records Found No data available for this section No Family History Records Found Advance Directives No Advanced Directives Records FoundNo Advanced Directives Records FoundNo Advanced Directives Records FoundNo Advanced Directives Records FoundNo Advanced Directives Records Found Additional Source Comments (unrecognized sect ion and content) No Status Records FoundNo Status Records FoundNo Status Records FoundNo Status Records FoundNo Status Records Found INFORMATION SOURCE (unrecogn ized section and content) DATE CREATED AUTHOR 11/21/2017 [facility] DATE CREATED AUTHOR AUTHOR'S ORGANIZ ATION 06/06/2019 [facility] DATE CREATED AUTHOR AUTHOR'S ORGANIZ ATION 06/25/2022 [facility] DATE CREATED AUTHOR AUTHOR'S ORGANIZ ATION 07/01/2023 [facility] EPIC DATE CREATED AUTHOR AUTHOR'S ORGANIZ ATION 08/15/2023 [facility] Care Teams (unrecognized sec tion and content) Alliance Consultant Relationship Specialty Start Date End Date Lloyd Garrison MD [address] [place] [phone] PCP - General Family Medicine 06/23/23 Lizeth Van NP [address] [place] [phone] Referring Physician Nurse Practitioner 12/12/22 Alliance Consultant Relationship Specialty Start Date End Date Lloyd Garrison MD [address] [place] [phone] PCP - General Family Medicine 06/23/23 Lizeth Van NP [address] [place] [phone] Referring Physician Nurse Practitioner 12/12/22 Alliance Consultant Relationship Specialty Start Date End Date Lloyd Garrison MD [address] [place] [phone] PCP - General Family Medicine 06/23/23 Lizeth Van NP [address] [place] [phone] Referring Physician Nurse Practitioner 12/12/22 FOR RECORDS [...] BE BASED ON THE PRIMARY CLINICAL RECORDS. [facility]. provides no warranty or guarantee of the accuracy or completeness of information in this document.
--- NOTE | 2023-08-18 09:07 | XR_ITS ---
The [address] [address] Patient Name: JULIETA LIZARRAGA MRN: [id number] date: 1965 Sex: M Assigned Patient Location: LAB Current Patient Location: Accession/Order Number: [id number] Exam Date: 08/18/2023 09:16 Report Date: 08/21/2023 07:34 At the request of: LOC ESCOBEDO Procedure: XR abdomen 1V EXAMINATION: XR abdomen 1V HISTORY: Kidney Stone COMPARISON: 08/10/2023 FINDINGS: KIDNEY/URETER - RIGHT: No visible renal or ureteral calcifications. KIDNEY/URETER - LEFT: Stable 1.6 cm left nephrolith projects over the pelvis. Additional lower pole nephrolithiasis. PELVIS: No visible ureteral calcifications. Any visible calcifications favor phleboliths. BOWEL: No abnormal dilation or deviation. Moderate stool in the transverse colon BONES: No acute abnormality. OTHER: Negative. No abnormal gaseous collections. XR/XR abdomen 1V IMPRESSION: Stable left nephrolithiasis Electronically authenticated by: FINA GAMEZ Date: 08/21/2023 07:34
--- NOTE | 2023-08-18 09:07 | XR_ITS ---
The [address] [address] Patient Name: JULIETA LIZARRAGA MRN: [id number] date: 1965 Sex: M Assigned Patient Location: LAB Current Patient Location: LAB Accession/Order Number: [id number] Exam Date: 08/18/2023 09:16 Report Date: 08/18/2023 12:31 At the request of: LOC ESCOBEDO Procedure: XR chest 2V PROCEDURE: XR chest 2V DATE: 08/18/2023 8:16 AM CDT COMPARISONS: None. CLINICAL INDICATION: 58 years Male Kidney Stone FINDINGS: The cardiomediastinal silhouette and pulmonary vasculature are within normal limits. The lungs are clear. There is no evidence of pleural effusion or pneumothorax. Lateral view shows some mild to moderate cephalad endplate compression of one of the lower thoracic vertebral bodies believed to be T11 or T12. It's unclear of the chronicity of this finding. The patient has no symptoms in this area, this is likely an old compression fracture. XR/XR chest 2V IMPRESSION: Chest radiograph is within normal limits. Mild to moderate cephalad endplate compression of one of the lower thoracic vertebral body seen on lateral view. Please correlate with clinical history and physical exam. Additional imaging as clinically felt necessary. Electronically authenticated by: BEBA RÍOS Date: 08/18/2023 12:31
[2023-08-18 09:24] LABS: INR 0.97; Partial Thromboplastin Time 30.4 sec (22.3-36.2); Prothrombin Time 10.3 sec (9.0-11.6)
--- NOTE | 2023-08-18 09:27 | ECG_ITS ---
The [facility] Test Date: 2023-08-18 Pat Name: JULIETA LIZARRAGA Department: Room: - Gender: Male Coat Padder: : 1965 Requested By: QUENTIN UMANA Order Number: [id number] Reading MD: PIERCE SHANNON Measurements Intervals [place] Rate: 78 P: 58 OR: 167 QRS: 74 QRSD: 87 T: 59 QT: 366 QTc: 419 Interpretive Statements SINUS RHYTHM No previous ECG available for comparison Electronically Signed On 08-20-2023 7:21:13 EDT by PIERCE SHANNON
[2023-08-18 09:40] LABS: Anion Gap 12.6; Carbon Dioxide 30.6 mmol/L (21.0-32.0); Chloride 101 mmol/L (98-107); Estimated GFR (African America >60 (>=60); Estimated GFR (Non-African Ame >60 (>=60); Potassium 4.2 mmol/L (3.5-5.1); Sodium 140 mmol/L (136-145)
[2023-08-18 11:19] LABS: Basophils Absolute Auto 0.1 10^3/uL (0.0-0.1); Basophils Percent Auto 0.9 % (0.2-2.0); Eosinophils Absolute Auto 0.3 10^3/uL (0.0-0.7); Hematocrit 45.2 % (42.0-54.0); Hemoglobin 15.2 g/dL (14.0-18.0); Immature Granulocytes Abs Auto 0.03 10^3/uL (0.00-0.03); Immature Granulocytes Pct Auto 0.3 % (0.0-0.5); Lymphocytes Absolute Auto 2.4 10^3/uL (1.2-3.8); Lymphocytes Percent Auto 26.4 % (20.5-60.0); Mean Corpuscular HGB Conc 33.6 g/dL (29.9-35.2); Mean Corpuscular Hemoglobin 32.1 pg (25.9-34.0); Mean Corpuscular Volume 95.6 fL (80.0-94.0); Mean Platelet Volume 10.4 fL (9.5-13.5); Monocytes Percent Auto 10.6 % (1.7-12.0); Neutrophils Absolute Auto 5.3 10^3/uL (1.4-6.5); Neutrophils Percent Auto 58.8 % (43.0-75.0); Platelet Count 200 10^3/uL (150-450); Red Blood Count 4.73 10^6/uL (4.70-6.10); Red Cell Distribution Width 12.3 % (11.0-15.0)
== END 2023-08-18 08:48 | disposition home or self-care (01) ==
PROVIDERS: PCP Nurse Practitioner; Visit Provider Urology
DX: N20.0 Calculus of kidney (principal)
CPT/HCPCS: 36415; 71046; 74018; 80051; 82565; 84520; 85025; 85610; 85730; 93005

== ENCOUNTER 2023-09-04 12:20 | Outpatient (OUT) | payer OTHER, SELFPAY ==
--- OUTSIDE RECORDS SUMMARY | 2023-09-04 12:25 | XMS_ITS | CCD ---
Author Organization [facility] Care Team Providers Care Hydro Generation Supervisor Name Role Phone Non-Referral, Physician Unavailable Unavaila ble Non-Referral, Physician Unavailable Unavaila ble Non-Referral, Physician Unavailable Unavaila ble AICHHOLZ, TRAVELING CONSTRUCTION SUPERINTENDENT LIZETH Admitting Unavailable AICHHOLZ, TRAVELING CONSTRUCTION SUPERINTENDENT LIZETH Primary Care Unavailable AICHHOLZ, TRAVELING CONSTRUCTION SUPERINTENDENT LIZETH Consulting Unavailable AICHHOLZ, TRAVELING CONSTRUCTION SUPERINTENDENT LIZETH Attending Unavailable AICHHOLZ, TRAVELING CONSTRUCTION SUPERINTENDENT LIZETH Admitting Unavailable AICHHOLZ, TRAVELING CONSTRUCTION SUPERINTENDENT LIZETH Primary Care Unavailable AICHHOLZ, TRAVELING CONSTRUCTION SUPERINTENDENT LIZETH Consulting Unavailable AICHHOLZ, TRAVELING CONSTRUCTION SUPERINTENDENT LIZETH Attending Unavailable Aichholz FINANCIAL AID ADVISOR, Lizeth Unavailable Lloyd Garrison MD Primary Care Provider LIZETH VAN Attending Unavailable LIZETH VAN Primary Care Physician LIZETH VAN Referring Unavailable Abdifatah ESCOBEDO Attending Unavailable Abdifatah ESCOBEDO Attending Unavailable Allergies Allergy Classification Reported Allergen(s) Allergy Type Date of Onset Reaction(s) Facility (1 source) No Known Medication Allergies; Translations: [No Known Medication Allergies] Propensity to adverse reactions (disorder) [facility] Repository Medications Current Medications Medication Drug [...] Active Fish Oils (1 source) Start: 08-14-2023 [place]khorn-3 Fish Oil Oral, TID, Refills(s) 0 Start [...] source) Long-term current use of aspirin; Translations: [intermodal customer service (current) use of aspirin] Onset: 08-14-2023 Episodic [...] Test Name Value Interpretation Reference Range Facility RAD - MISCon 08-21-2023 RAD - MISC [id number] #1.00TIFF Normal [facility] Lab Reportson 08-18-2023 Lab Reports [id number] #1.00TIFF [facility] Lab Reports [id number] #1.00TIFF [facility] RAD - MISCon 08-18-2023 RAD - MISC [id number] #1.00TIFF [facility] Formson 08-15-2023 Forms [id number] #1.00TIFF [facility] Physician Referralon 024 Physician Referral [id number] #1.00TIFF [facility] Screenson 08-15-2023 Screens [id number] #1.00TIFF [facility] Ambulatory Visit Summaryon 0 08-14-2023 Ambulatory Visit [...] 500 mg Tab) omega-3 polyunsaturated fatty acids (Elkhorn-3 Fish Oil) Procedures Performed Tonsillectomy. Discharge Vitals Temperature (Temporal Artery) 36.0 ?C Heart Rate (Peripheral) 88 Blood Pressure 138/80 Weight 96.9 kg Weight 213.18 lb What to do next You Need to Schedule the Following Appointments Follow Up with FANNY MILLER, Abdifatah Sheppard, URL When: Comments: sched cysto/L ESWL Where: [address] [place] [id number]- Medications What How Much When Instructions Unchanged [...] or concerns Unchanged omega-3 polyunsaturated fatty acids (Elkhorn-3 Fish Oil) 3 times a day Contact [...] including vitamins, herbs, eye drops, creams, and rfxx-qks-acmqvdo medicines. ? Any problems you or family [...] tells you to take them. ? Taking eyhc-clm-oynnntq medicines, vitamins, herbs, and supplements. Tests You may have an exam or testing, such as: ? X-rays of the bladder, urethra, or kidneys. ? CT scan of the abdomen or pelvis. ? Urine tests to check for signs of infection. General instructions ? Foll (more content not included)... Normal [facility] Patient Educationon 08-14-19 Patient Education Pulmonary [...] require a prescription. You can also purchase rwhk-yep-hrrfupc medicines. Medicines may have nicotine in them [...] and encouragement. Call telephone quitlines, such as 7-601-RZSE-NOW, reach out to support groups, or work [...] quit smoki (more content not included)... Normal [facility]-14-2023 [facility] [id number] #1.00TIFF [facility] Urology Office/Clinic Noteon 08-14-2023 Urology Office/Clinic Note Chief Complaint FINANCIAL AID ADVISOR referal for hematuria, Left nephrolithiasis [facility] Staff New Pt. Referral per Lizeth Van FINANCIAL AID ADVISOR due to left nephrolithiasis, microscopic hematuria. KUB done at [facility]. DENNY 08/10/23 DENNY 07/28/23@ [facility] IPSS 5 PVR 57 Dysuria: _denies [...] Discussed possible (more content not included)... Normal [facility] Comment on above: Result Comment: Elec tronically Signed By: Abdifatah ESCOBEDO MD\.br\Date and Time Signed: 08/14/23 11:19 EDT\.br\Electronically Co-Signed By: Almaz Beavers\Date and Time Co-Signed: 08/14/23 11:09 EDT ALL CBC WITH AUTO DIFFon BASOPHILS ABSOLUTE AUTO 0.1 [facility] Basophils/100 WBC (Bld) 1.3 % 0.2 - 2.0 % [facility] Eosinophils/100 WBC (Bld) 4.1 % 0.9 - 7.0 % [facility] Erythrocyte distribution width (RBC) [Ratio] 12.3 % 11.0 - 15.0 % [facility] Hematocrit (Bld) [Volume fraction] 45.4 % 42.0 - 54.0 % [facility] Hemoglobin (Bld) [Mass/Vol] 15.3 g/dL 14.0 - 18.0 g/dL [facility] IMMATURE GRANULOCYTES ABS AUTO 0.01 [facility] Immature granulocytes/100 WBC (Bld) 0.1 % 0.0 - 0.5 % [facility] Interpretation and review of laboratory results Abnormal [facility] LYMPHOCYTES ABSOLUTE AUTO 1.9 [facility] Lymphocytes/100 WBC (Bld) 26.4 % 20.5 - 60.0 % [facility] MCH (RBC) [Entitic mass] 32.6 pg 25.9 - 34.0 pg [facility] MCHC (RBC) [Mass/Vol] 33.7 g/dL 29.9 - 35.2 g/dL [facility] MCV (RBC) [Entitic vol] 96.6 fL High 80.0 - 94.0 fL [facility] MONOCYTES ABSOLUTE AUTO 0.8 [facility] Monocytes/100 WBC (Bld) 11.3 % 1.7 - 12.0 % [facility] NEUTROPHILS ABSOLUTE AUTO 4.0 [facility] Neutrophils/100 WBC (Bld) 56.8 % 43.0 - 75.0 % [facility] Platelet mean volume (Bld) [Entitic vol] 9.8 fL 9.5 - 13.5 fL [facility] EO # 0.3 [facility] PLT 192 [facility] RBC 4.70 [facility] WBC 7.0 [facility] GLYCOHEMOGLOBIN A1Con 2022 ADA RECOMMENDATION SEE BELOW Normal [facility] Comment on above: Result Comment: ADA RECOMMENDED LIMIT 4.0 - 6.0 ADA THERAPEUTIC TARGET < 7.0 ACTION SUGGESTED > 7.0 Performed By: #### A 1C #### [facility] [address] [place] [address] Dr. Abbi Porter Glucose [Mass/Vol] 114 mg/dL Normal [facility] Comment on above: Performed By: #### A 1C #### [facility] [address] [place] [address] Dr. Abbi Porter HbA1c (Bld) [Mass fraction] 5.6 % Normal 4.5-6.2 [facility] Comment on above: Performed By: #### A 1C #### [facility] [address] [place] [address] Dr. Abbi Porter CBC AUTO DIFFon 11-24-2021 BASO # 0.1 103/ul Normal 0.0-0.1 [facility] Comment on above: Performed By: #### C BC #### [facility] [address] [place] [address] Dr. Abbi Porter Basophils/100 WBC (Bld) 1.1 % Normal 0.2-2.0 [facility] Comment on above: Performed By: #### C BC #### [facility] [address] [place] [address] Dr. Abbi Porter EO # 0.2 103/ul Normal 0.0-0.7 [facility] Comment on above: Performed By: #### C BC #### [facility] [address] [place] [address] Dr. Abbi Porter Eosinophils/100 WBC (Bld) 3.7 % Normal 0.9-7.0 [facility] Comment on above: Performed By: #### C BC #### [facility] [address] [place] [address] Dr. Abbi Porter Erythrocyte distribution width (RBC) [Ratio] 12.8 % Normal 11.0-15.0 [facility] Comment on above: Performed By: #### C BC #### [facility] [address] [place] [address] Dr. Abbi Porter Hematocrit (Bld) [Volume fraction] 44.8 % Normal 42.0-54.0 [facility] Comment on above: Performed By: #### C BC #### [facility] [address] [place] [address] Dr. Abbi Porter Hemoglobin (Bld) [Mass/Vol] 15.3 g/dL Normal 14.0-18.0 [facility] Comment on above: Performed By: #### C BC #### [facility] [address] [place] [address] Dr. Abbi Porter IG # 0.01 10e3/ul Normal 0.00-0.03 [facility] Comment on above: Performed By: #### C BC #### [facility] [address] [place] [address] Dr. Abbi Porter IG % 0.2 % Normal 0.0-0.5 [facility] Comment on above: Performed By: #### C BC #### [facility] [address] [place] [address] Dr. Abbi Porter LYMPH # 1.9 103/ul Normal 1.2-3.8 [facility] Comment on above: Performed By: #### C BC #### [facility] [address] [place] [address] Dr. Abbi Porter Lymphocytes/100 WBC (Bld) 28.4 % Normal 20.5-60.0 [facility] Comment on above: Performed By: #### C BC #### [facility] [address] [place] [address] Dr. Abbi Porter MANUAL DIFF REQ NO Normal [facility] Comment on above: Performed By: #### C BC #### [facility] [address] [place] [address] Dr. Abbi Porter MCH (RBC) [Entitic mass] 33.0 pg Normal 25.9-34.0 [facility] Comment on above: Performed By: #### C BC #### [facility] [address] [place] [address] Dr. Abbi Porter MCHC (RBC) [Mass/Vol] 34.2 g/dL Normal 29.9-35.2 [facility] Comment on above: Performed By: #### C BC #### [facility] [address] [address] [address] Abbi Porter MCV (RBC) [Entitic vol] 96.6 fL Critically high 80.0-94.0 [facility] Comment on above: Performed By: #### C BC #### [facility] [address] [address] [address] Abbi Porter MONO # 0.7 103/ul Normal 0.3-0.8 [facility] Comment on above: Performed By: #### C BC #### [facility] [address] [address] [address] Abbi Porter Monocytes/100 WBC (Bld) 10.7 % Normal 1.7-12.0 [facility] Comment on above: Performed By: #### C BC #### [facility] [address] [address] [address] Abbi Porter NEUT # 3.7 103/ul Normal 1.4-6.5 [facility] Comment on above: Performed By: #### C BC #### [facility] [address] [address] [address] Abbi Porter Neutrophils/100 WBC (Bld) 55.9 % Normal 43.0-75.0 [facility] Comment on above: Performed By: #### C BC #### [facility] [address] [address] [address] Abbi Porter Platelet mean volume (Bld) [Entitic vol] 10.6 fL Normal 9.5-13.5 [facility] Comment on above: Performed By: #### C BC #### [facility] [address] [address] [address] Abbi Porter PLT 233 103/ul Normal 150-450 [facility] Comment on above: Performed By: #### C BC #### [facility] [address] [address] [address] Abbi Porter RBC 4.64 106/ul Critically low 4.70-6.10 [facility] Comment on above: Performed By: #### C BC #### [facility] [address] [place] [address] Dr. Abbi Porter WBC 6.6 103/ul Normal 4.0-11.0 [facility] Comment on above: Performed By: #### C BC #### [facility] [address] [place] [address] Dr. Abbi Porter CULTURE URINEon 11-24-2021 CULTURE URINE Culture Observations: NO GROWTH. Normal [facility] Comment on above: Performed By: #### U RCX #### [facility] [address] [place] [address] Dr. Abbi Porter GLYCOHEMOGLOBIN A1Con 2021 ADA RECOMMENDATION SEE BELOW Normal [facility] Comment on above: Result Comment: ADA RECOMMENDED LIMIT 4.0 - 6.0 ADA THERAPEUTIC TARGET < 7.0 ACTION SUGGESTED > 7.0 Performed By: #### A 1C #### [facility] [address] [place] [address] Dr. Abbi Porter Glucose [Mass/Vol] 117 mg/dL Normal [facility] Comment on above: Performed By: #### A 1C #### [facility] [address] [place] [address] Dr. Abbi Porter HbA1c (Bld) [Mass fraction] 5.7 % Normal 4.5-6.2 [facility] Comment on above: Performed By: #### A 1C #### [facility] [address] [place] [address] Dr. Abbi Porter MICROALBUMIN, RAND URon 10-28 mALB 8.3 mg/L Normal <=30.0 [facility] Comment on above: Performed By: #### M ALBR #### [facility] [address] [place] [address] Dr. Abbi Porter PROF 14(COMP METB)on 022 Albumin [Mass/Vol] 4.2 g/dL Normal 3.4-5.0 [facility] Comment on above: Performed By: #### C MP #### [facility] [address] [place] [address] Dr. Abbi Porter Albumin/Globulin [Mass ratio] 1.4 {ratio} Normal [facility] Comment on above: Performed By: #### C MP #### [facility] [address] [place] [address] Dr. Abbi Porter ALP [Catalytic activity/Vol] 66 U/L Normal 46-116 [facility] Comment on above: Performed By: #### C MP #### [facility] [address] [place] [address] Dr. Abbi Porter ALT [Catalytic activity/Vol] 34 U/L Normal 16-63 [facility] Comment on above: Performed By: #### C MP #### [facility] [address] [place] [address] Dr. Abbi Porter Anion gap [Moles/Vol] 14.2 mmol/L Normal [facility] Comment on above: Performed By: #### C MP #### [facility] [address] [place] [address] Dr. Abbi Porter AST [Catalytic activity/Vol] 19 U/L Normal 15-37 [facility] Comment on above: Performed By: #### C MP #### [facility] [address] [place] [address] Dr. Abbi Porter Bilirubin [Mass/Vol] 0.4 mg/dL Normal 0.2-1.0 [facility] Comment on above: Performed By: #### C MP #### [facility] [address] [place] [address] Dr. Abbi Porter Calcium [Mass/Vol] 9.2 mg/dL Normal 8.5-10.1 [facility] Comment on above: Performed By: #### C MP #### [facility] [address] [place] [address] Dr. Abbi Porter Chloride [Moles/Vol] 103 mmol/L Normal 98-107 [facility] Comment on above: Performed By: #### C MP #### [facility] [address] [place] [address] Dr. Abbi Porter CO2 [Moles/Vol] 29.9 mmol/L Normal 21.0-32.0 [facility] Comment on above: Performed By: #### C MP #### [facility] [address] [address] [address] Abbi Porter Creatinine [Mass/Vol] 0.95 mg/dL Normal 0.70-1.30 [facility] Comment on above: Performed By: #### C MP #### [facility] [address] [address] [address] Abbi Porter EGFR-AF EQUATORIAL GUINEAN >60 Normal >=60 [facility] Comment on above: Performed By: #### C MP #### [facility] [address] [address] [address] Abbi Porter EGFR-NON AF EQUATORIAL GUINEAN >60 Normal >=60 [facility] Comment on above: Performed By: #### C MP #### [facility] [address] [place] [address] Dr. Abbi Porter Globulin (S) [Mass/Vol] 3.1 g/dL Normal [facility] Comment on above: Performed By: #### C MP #### [facility] [address] [address] [address] Abbi Porter Glucose [Mass/Vol] 111 mg/dL Critically high 74-106 [facility] Comment on above: Performed By: #### C MP #### [facility] [address] [place] [address] Dr. Abbi Porter Potassium [Moles/Vol] 4.1 mmol/L Normal 3.5-5.1 [facility] Comment on above: Performed By: #### C MP #### [facility] [address] [address] [address] Abbi Porter Protein [Mass/Vol] 7.3 g/dL Normal 6.4-8.[address] [facility] Comment on above: Performed By: #### C MP #### [facility] [address] [place] [address] Dr. Abbi Porter Sodium [Moles/Vol] 143 mmol/L Normal 136-145 [facility] Comment on above: Performed By: #### C MP #### [facility] [address] [address] [address] Abbi Porter Urea nitrogen [Mass/Vol] 19.0 mg/dL Critically high 7.0-18.0 [facility] Comment on above: Performed By: #### C MP #### [facility] [address] [place] [address] Dr. Abbi Porter Urea nitrogen/Creatinine [Mass ratio] 20.0 mg/mg Normal [facility] Comment on above: Performed By: #### C MP #### [facility] [address] [place] [address] Dr. Abbi Porter UA RANDOM W/MICROSCOPICon BACTERIA NONE SEEN Normal NONE SEEN [facility] Comment on above: Performed By: #### U AMIC #### [facility] [address] [place] [address] Dr. Abbi Porter Bilirubin Ql (U) Negative Normal NEGATIVE [facility] Comment on above: Performed By: #### U AMIC #### [facility] [address] [place] [address] Dr. Abbi Porter CAST NONE SEEN Normal NONE SEEN [facility] Comment on above: Performed By: #### U AMIC #### [facility] [address] [place] [address] Dr. Abbi Porter Clarity (U) CLEAR Normal CLEAR [facility] Comment on above: Performed By: #### U AMIC #### [facility] [address] [place] [address] Dr. Abbi Porter Color (U) LT. YELLOW Normal YELLOW [facility] Comment on above: Performed By: #### U AMIC #### [facility] [address] [place] [address] Dr. Abbi Porter Crystals LM Nom (Urine sed) NONE SEEN Normal NONE SEEN [facility] Comment on above: Performed By: #### U AMIC #### [facility] [address] [place] [address] Dr. Abbi Porter Epithelial cells LM Ql (Urine sed) FEW Abnormal NONE SEEN /RARE [facility] Comment on above: Performed By: #### U AMIC #### [facility] [address] [address] [address] Abbi Porter Glucose Ql (U) Negative Normal NEGATIVE [facility] Comment on above: Performed By: #### U AMIC #### [facility] [address] [address] [address] Abbi Porter Hemoglobin Ql (U) LARGE Abnormal NEGATIVE [facility] Comment on above: Performed By: #### U AMIC #### [facility] [address] [address] [address] Abbi Porter Ketones Ql (U) Negative Normal NEGATIVE [facility] Comment on above: Performed By: #### U AMIC #### [facility] [address] [address] [address] Abbi Porter LEUKOCYTES TRACE Abnormal NEGATIVE [facility] Comment on above: Performed By: #### U AMIC #### [facility] [address] [address] [address] Abbi Porter MUCOUS NONE SEEN Normal NONE SEEN [facility] Comment on above: Performed By: #### U AMIC #### [facility] [address] [address] [address] Abbi Porter Nitrite Ql (U) Negative Normal NEGATIVE [facility] Comment on above: Performed By: #### U AMIC #### [facility] [address] [place] [address] Dr. Abbi Porter pH (U) 5.5 [pH] Normal 5-9 [facility] Comment on above: Performed By: #### U AMIC #### [facility] [address] [place] [address] Dr. Abbi Porter RBC 0-2 Normal 0-2 [facility] Comment on above: Performed By: #### U AMIC #### [facility] [address] [place] [address] Dr. Abbi Porter SPEC GRAVITY 1.025 Normal 1.005-<=1.025 [facility] Comment on above: Performed By: #### U AMIC #### [facility] [address] [place] [address] Dr. Abbi Porter UA PROTEIN Negative Normal NEGATIVE/ TRACE [facility] Comment on above: Performed By: #### U AMIC #### [facility] [address] [place] [address] Dr. Abib Porter Urobilinogen Qn (U) 0.2 {Candice'U}/dL Normal 0.2 - 1. 0 [facility] Comment on above: Performed By: #### U AMIC #### [facility] [address] [place] [address] Dr. Abbi Porter WBC 10-20 Abnormal NONE SEEN [facility] Comment on above: Performed By: #### U AMIC #### [facility] [address] [place] [address] Dr. Abbi Porter AMYLASEon 06-04-2019 Amylase [Catalytic activity/Vol] 86 U/L Normal 28-100 [facility] Comment on above: Performed By: #### 4 [id number] #### [address] [address] CBC and diff (cpt 50322)on 0 06-04-2019 Basophils (Bld) [#/Vol] 0.03 10*3/uL Normal 0.00-0.07 [facility] Comment on above: Performed By: #### 4 [id number] #### [address] [address] Basophils/100 WBC (Bld) 0.4 % Normal 0.0-2.0 [facility] Comment on above: Performed By: #### 4 [id number] #### [address] [address] Eosinophils (Bld) [#/Vol] 0.21 10*3/uL Normal 0.00-0.47 [facility] Comment on above: Performed By: #### 4 [id number] #### [address] [address] Eosinophils/100 WBC (Bld) 2.7 % Normal 0.0-7.0 [facility] Comment on above: Performed By: #### 4 [id number] #### [address] [address] Erythrocyte distribution width (RBC) [Ratio] 13.1 % Normal 11.5-14.0 [facility] Comment on above: Performed By: #### 4 [id number] #### [address] [address] Hematocrit (Bld) [Volume fraction] 42.2 % Normal 36.0-52.0 [facility] Comment on above: Performed By: #### 4 #### [address] [address] Hemoglobin (Bld) [Mass/Vol] 14.6 g/dL Normal 12.2-18.0 [facility] Comment on above: Performed By: #### 4 #### [address] [address] Immature granulocytes (Bld) [#/Vol] 0.02 10*3/uL Normal 0.00-0.06 [facility] Comment on above: Performed By: #### 4 #### [address] [address] Immature granulocytes/100 WBC (Bld) 0.3 % Normal 0.0-1.0 [facility] Comment on above: Performed By: #### 4 #### [address] [address] Lymphocytes (Bld) [#/Vol] 2.10 10*3/uL Normal 0.98-3.82 [facility] Comment on above: Performed By: #### 4 #### [address] [address] Lymphocytes/100 WBC (Bld) 27.5 % Normal 20.0-45.0 [facility] Comment on above: Performed By: #### 4 [id number] #### [address] [address] MCH (RBC) [Entitic mass] 32.4 pg Normal 27.0-34.0 [facility] Comment on above: Performed By: #### 4 #### [address] [address] MCHC (RBC) [Mass/Vol] 34.6 g/dL Normal 33.0-37.0 [facility] Comment on above: Performed By: #### 4 [id number] #### [address] [address] MCV (RBC) [Entitic vol] 94 fL Normal 80-100 [facility] Comment on above: Performed By: #### 4 [id number] #### [address] [address] Monocytes (Bld) [#/Vol] 0.64 10*3/uL Normal 0.28-0.96 [facility] Comment on above: Performed By: #### 4 [id number] #### [address] [address] Monocytes/100 WBC (Bld) 8.4 % Normal 2.0-12.0 [facility] Comment on above: Performed By: #### 4 [id number] #### [address] [address] Neutrophils (Bld) [#/Vol] 4.64 10*3/uL Normal 1.67-7.79 [facility] Comment on above: Performed By: #### 4 [id number] #### [address] [address] Neutrophils/100 WBC (Bld) 60.7 % Normal 40.0-65.0 [facility] Comment on above: Performed By: #### 4 [id number] #### [address] [address] Platelets (Bld) [#/Vol] 185 10*3/uL Normal 120-400 [facility] Comment on above: Performed By: #### 4 [id number] #### [address] [address] RBC (Bld) [#/Vol] 4.51 10*6/uL Normal 4.00-5.70 [facility] Comment on above: Performed By: #### 4 [id number] #### [address] [address] WBC (Bld) [#/Vol] 7.64 10*3/uL Normal 3.80-10.00 [facility] Comment on above: Performed By: #### 4 909247 #### [address] [address] COMPREHENSIVE MET PANELon Albumin [Mass/Vol] 4.50 g/dL Normal 3.50-5.20 [facility] Comment on above: Performed By: #### 4 [id number] #### [address] [address] Albumin/Globulin [Mass ratio] 1.7 Normal 0.8-2.4 [facility] Comment on above: Performed By: #### 4 [id number] #### [address] [address] ALP [Catalytic activity/Vol] 60 U/L Normal 40-130 [facility] Comment on above: Performed By: #### 4 [id number] #### [address] [address] ALT No additional P-5'-P [Catalytic activity/Vol] 30 [iU]/L Normal <41 [facility] Comment on above: Performed By: #### 4 [id number] #### [address] [address] Anion gap [Moles/Vol] 17 mmol/L Normal 9-20 [facility] Comment on above: Performed By: #### 4 [id number] #### [address] [address] AST [Catalytic activity/Vol] 24 U/L Normal <40 [facility] Comment on above: Performed By: #### 4 246086 #### [address] [address] Bilirubin [Mass/Vol] 0.19 mg/dL Normal <1.20 [facility] Comment on above: Performed By: #### 4 [id number] #### [address] [address] Calcium [Mass/Vol] 9.5 mg/dL Normal 8.6-10.0 [facility] Comment on above: Performed By: #### 4 942874 #### [address] [address] Chloride [Moles/Vol] 101.3 mmol/L Normal 98.0-107.0 [facility] Comment on above: Performed By: #### 4 893553 #### [address] [address] Creatinine [Mass/Vol] 0.88 mg/dL Normal 0.67-1.17 [facility] Comment on above: Performed By: #### 4 065320 #### [address] [address] GFR/1.73 sq M.predicted MDRD (S/P/Bld) [Vol rate/Area] mL/min/{1.73_m2} Normal [facility] Comment on above: Result Comment: Garima samuellar Filtration Rate (eGFR) eGFR units: mL/min/1.73 m^2 [...] or www. niddk.nih.gov Performed By: #### 4 [id number] #### [address] [address] Glucose [Mass/Vol] 123 mg/dL High 74-106 [facility] Comment on above: Performed By: #### 4 557030 #### [address] [address] HCO3 [Moles/Vol] 25.2 mmol/L Normal 22.0-29.0 [facility] Comment on above: Performed By: #### 4 935466 #### [address] [address] Potassium [Moles/Vol] 4.71 mmol/L Normal 3.40-5.10 [facility] Comment on above: Performed By: #### 4 072850 #### [address] [address] Protein [Mass/Vol] 7.1 g/dL Normal 6.4-8.3 [facility] Comment on above: Performed By: #### 4 066260 #### [address] [address] Sodium [Moles/Vol] 139 mmol/L Normal 136-145 [facility] Comment on above: Performed By: #### 4 130832 #### [address] [address] Urea nitrogen [Mass/Vol] 16.4 mg/dL Normal 6.0-20.0 [facility] Comment on above: Performed By: #### 4 371231 #### [address] [address] CRP (inflammation) cpt 71188 on 06-04-2019 CRP [Mass/Vol] 5.7 mg/L High <5.0 [facility] Comment on above: Performed By: #### 4 [id number] #### [address] [address] [address] ABD PELVISon 06-04-2019 CT ABD PELVIS ---------NAME------- -- NUMBER SEX AGE ADMIT DISC. XRAY# F/C TYPE ZIA Yeung [id number] M 54 06/04/19 [id number] [facility] E/R DATE OF : 1965 M/R# [id number] #: [id number] ED-06 LOCATION: EMERGENCY DEPT TRANSCRIBED: 06/04/19 12:[address] ABD PELVIS [id number] COMPLETED:06/04/19 12:21 KLK [id number] Reason(s): Abdominal Pain Flank Pain PHYSICIAN: BON OTHER PHYS W A Y N E H E A L T H C A R E R A D I O L O G Y R E P O R T [address] [place] [id number] PROCEDURE: CT ABD PELVIS DATE OF EXAM: [...] HERNAN LAMBERT MD 06/04/2019 12:36 PM Normal [facility] LIPASEon 06-04-2019 Lipase [Catalytic activity/Vol] 38 U/L Normal 13-60 [facility] Comment on above: Performed By: #### 4 [id number] #### [address] [address] URINALYSIS reflex CULTUREon 06-04-2019 Bacteria LM Ql (Urine sed) TRACE Abnormal NONE SEEN [facility] Comment on above: Performed By: #### 4 [id number] #### [address] [address] Bilirubin Ql (U) Negative Normal NEGATIVE [facility] Comment on above: Performed By: #### 4 [id number] #### [address] [address] Clarity Refractometry automated (U) CLEAR Normal CLEAR [facility] Comment on above: Performed By: #### 4 [id number] #### [address] [address] Color (U) YELLOW Normal YELLOW [facility] Comment on above: Performed By: #### 4 605240 #### [address] [address] Epithelial cells.squamous LM.HPF (Urine sed) [#/Area] 7-10 Normal [facility] Comment on above: Performed By: #### 4 527692 #### [address] [address] Glucose Ql (U) 250 mg/dL Abnormal NEGATIVE [facility] Comment on above: Performed By: #### 4 153901 #### [address] [address] Hemoglobin Auto test strip Ql (U) MODERATE Abnormal NEGATIVE [facility] Comment on above: Performed By: #### 4 [id number] #### [address] [address] Ketones Ql (U) Negative Normal NEGATIVE [facility] Comment on above: Performed By: #### 4 [id number] #### [place] [address] Leukocyte esterase Auto test strip Ql (U) Negative Normal NEGATIVE [facility] Comment on above: Performed By: #### 4 [id number] #### [place] [address] Mucus Ql (Urine sed) 1+ [LPF] Normal [facility] Comment on above: Performed By: #### 4 [id number] #### [place] [address] Nitrite Ql (U) Negative Normal NEGATIVE [facility] Comment on above: Performed By: #### 4 123272 #### [place] [address] pH (U) 5.5 Normal 5-8 [facility] Comment on above: Performed By: #### 4 354234 #### [place] [address] Protein Ql (U) Negative Normal NEGATIVE [facility] Comment on above: Performed By: #### 4 [id number] #### [place] [address] RBC LM.HPF (Urine sed) [#/Area] 15-20 Abnormal 0-2 [facility] Comment on above: Performed By: #### 4 [id number] #### [place] [address] Specific gravity (U) [Rel density] >=1.030 Abnormal <=1.005-1.025 [facility] Comment on above: Performed By: #### 4 [id number] #### [place] [address] Type of Urine collection method CLEAN CATCH-CC Normal [facility] Comment on above: Performed By: #### 4 [id number] #### [place] [address] URINALYSIS reflex CULTURE [facility] Comment on above: Result Comment: URIN ALYSIS with Reflex to CULTURE Performed By: #### 4 [id number] #### [place] [address] Urobilinogen Test strip Ql (U) 0.2 {EhrlichU}/dL Normal 0.2-1.0 [facility] Comment on above: Performed By: #### 4 [id number] #### [address] [address] WBC LM.HPF (Urine sed) [#/Area] 4-6 Abnormal 0-3 [facility] Comment on above: Performed By: #### 4 [id number] #### [address] [address] Vital Signs Date Time Vital Sign Value Performing Clinician Facility 08-14-2023 10:33-0400 Blood Pressure Location Abdifatah ESCOBEDO [facility] 08-14-2023 10:33-0400 Body temperature 96.8 [degF] Abdifatah Observe [facility] 08-14-2023 10:33-0400 Diastolic blood pressure 80 mm[Hg] Abdifatah Observe [facility] 08-14-2023 10:33-0400 Heart rate 88 /min Abdifatah [facility] 08-14-2023 10:33-0400 Systolic blood pressure 138 mm[Hg] Abdifatah Observe [facility] 06-29-2023 18:14-0500 Body height 172.7 cm Lizeth Van FINANCIAL AID ADVISOR Work Phone: [facility] 06-29-2023 18:14-0500 Body mass index (BMI) [Ratio] 32.39 kg/m2 Lizeth Van FINANCIAL AID ADVISOR Work Phone: [facility] 06-29-2023 18:14-0500 Body temperature 97.5 [degF] Lizeth Van FINANCIAL AID ADVISOR Work Phone: [facility] 06-29-2023 18:14-0500 Body weight 96.62 kg Lizeth Van FINANCIAL AID ADVISOR Work Phone: [facility] 06-29-2023 18:14-0500 Diastolic blood pressure 70 mm[Hg] Lizeth Aichholz FINANCIAL AID ADVISOR Work Phone: [facility] 06-29-2023 18:14-0500 Heart rate 80 /min Lizeth Aichholz FINANCIAL AID ADVISOR Work Phone: [facility] 06-29-2023 18:14-0500 Respiratory rate 19 /min Lizeth Lucretiaholz FINANCIAL AID ADVISOR Work Phone: [facility] 06-29-2023 18:14-0500 SaO2% (BldA) [Mass fraction] 96 % Lizeth Lucretiaholz FINANCIAL AID ADVISOR Work Phone: [facility] 06-29-2023 18:14-0500 Systolic blood pressure 120 mm[Hg] Lizeth Aichholz FINANCIAL AID ADVISOR Work Phone: [facility] Encounters Encounter Date Encounter Type Care Provider Facility Start: 08-31-2023 ambulatory Abdifatah ESCOBEDO Facility :CD:[id number] Start: 08-14-2023 End: 08-15-2023 ambulatory LIZETH VAN Facility:[facility] Start: 08-14-2023 End: 08-14-2023 Patient encounter procedure Abdifatah ESCOBEDO [facility] Start: 08-02-2023 ambulatory LIZETH JUAN RAMONHHOLZ Facility: [facility] Start: 07-07-2023 Clinisync Result Encounter Lizeth Lucretiaholz FINANCIAL AID ADVISOR Work Phone: [facility] External Department Unsolicited Start: 07-07-2023 Clinisync Result Encounter Lizeth Juan Ramonhholz FINANCIAL AID ADVISOR Work Phone: [facility] External Department Unsolicited Start: 06-29-2023 End: 06-29-2023 ambulatory LIZETH JUAN RAMONHHOLZ Not Available Start: 06-29-2023 End: 06-29-2023 Office outpatient visit 25 minutes Lizeth Jocelinez FINANCIAL AID ADVISOR Work Phone: [facility] Comment on above: Hypertension, benign (CMS/HCC) (Primary Dx); Hematuria, microscopic; Prediabetes; BMI 32.0-32.9,adult; Hypertriglyceridemia (CMS/HCC); Tobacco dependence; Screening for prostate cancer; Essential (primary) hypertension (CMS/HCC) Start: 06-29-2023 Bamboo flowsheet Lizeth Van FINANCIAL AID ADVISOR Work Phone: [facility] Start: 06-29-2023 Bamboo flowsheet Lizeth Van FINANCIAL AID ADVISOR Work Phone: [facility] Start: 06-23-2022 End: 06-24-2022 ambulatory TRAVELING CONSTRUCTION SUPERINTENDENT LIZETH VAN Facility:[facility] Start: 11-24-2021 End: 11-25-2021 ambulatory TRAVELING CONSTRUCTION SUPERINTENDENT LIZETH VAN Facility:[facility] Start: 11-20-2017 Ambulatory Physician Non-Referral Facility[facility] Procedures Date Procedure Procedure Detail Performing Clinician Start: 07-07-2023 ALL CBC WITH AUTO DIFF Lizeth Van FINANCIAL AID ADVISOR Work Phone: Start: 11-24-2021 PSA screening [facility] LIZETH VAN Comment on above: Performed By: #### P [facility] #### [facility] [address] [place] [address] Dr. Abbi Porter Tonsillectomy Abdifatah FANNY Plan of Treatment Date Care Activity Detail Author Start: 02-27-2024 Screening for malignant neoplasm of colon [facility] Start: 01-01-2024 End: 01-01-2024 Patient encounter procedure 01/01/2024 7:20 PM EDT Office Visit [facility] [address] [place] [address] Lizeth Van NP [address] [place] [phone] [facility] Start: 06-29-2023 End: 06-29-2023 Patient encounter procedure 06/29/2023 6:15 PM EST Office Visit [facility] [address] [place] [address] Lizeth Van NP [address] [place] [address] Hypertension, benign (CMS/HCC) (Primary Dx); Hematuria, microscopic; Prediabetes; Obesity with body mass index (BMI) of 30.0 to 39.9; Hypertriglyceridemia (CMS/HCC); Tobacco dependence; Screening for prostate cancer [facility] Comment on above: Hypertension, benign (CMS/HCC) (Primary Dx); Hematuria, microscopic; Prediabetes; Obesity with body mass index (BMI) of 30.0 to 39.9; Hypertriglyceridemia (CMS/HCC); Tobacco dependence; Screening for prostate cancer Start: 06-29-2023 End: 06-29-2024 CBC W Auto Differential panel - Blood CBC and differential Lab Routine Hematuria, microscopic Expected: 06/29/2023 (Approximate), Expires: 06/29/2024 [facility] Work Phone: Comment on above: Expected: 06/29/2023 (Approximate), Expi res: 06/29/2024 Start: 06-29-2023 End: 06-29-2024 Comprehensive metabolic 2000 panel - Serum or Plasma Comprehensive metabolic panel Lab Routine Hypertension, benign (CMS/HCC) Hematuria, microscopic Prediabetes Hypertriglyceridemia (CMS/HCC) Expected: 06/29/2023 (Approximate), Expires: 06/29/2024 [facility] Comment on above: Expected: 06/29/2023 (Approximate), Expi res: 06/29/2024 Start: 06-29-2023 End: 06-29-2024 Lipid 1996 panel - Serum or Plasma Lipid panel Lab Routine Prediabetes Hypertriglyceridemia (CMS/HCC) Expected: 06/29/2023 (Approximate), Expires: 06/29/2024 [facility] Comment on above: Expected: 06/29/2023 (Approximate), Expi res: 06/29/2024 Start: 06-29-2023 End: 06-29-2024 Microalbumin/Creatinin e panel in random Urine Microalbumin / creatinine, urine ratio Lab Routine Hypertension, benign (CMS/HCC) Prediabetes Expected: 06/29/2023 (Approximate), Expires: 06/29/2024 [facility] Comment on above: Expected: 06/29/2023 (Approximate), Expi res: 06/29/2024 Start: 06-29-2023 End: 06-29-2024 Prostate specific Ag [Mass/volume] in Serum or Plasma PSA Lab Routine Screening for prostate cancer Expected: 06/29/2023 (Approximate), Expires: 06/29/2024 [facility] Comment on above: Expected: 06/29/2023 (Approximate), Expi res: 06/29/2024 Start: 06-29-2023 End: 06-29-2024 Urinalysis complete panel - Urine Urinalysis with reflex microscopic (clean catch) Lab Routine Hypertension, benign (CMS/HCC) Hematuria, microscopic Prediabetes Expected: 06/29/2023 (Approximate), Expires: 06/29/2024 [facility] Comment on above: Expected: 06/29/2023 (Approximate), Expi res: 06/29/2024 Start: 01-27-2023 Influenza vaccination Influenza Vaccine (#1) [facility] Start: 1965 Screening for malignant neoplasm of colon [facility] Payers Date Payer Category Payer Unknown [id number] 2018 Unknown BCBS BCBS [id number] 2018-Present [phone] [address] [place] [address] [id number] 2016 Unknown [id number] 1965 Unknown [id number] 1965 Unknown [id number] 1967 Unknown [id number] 1967 Unknown [id number] 1965 Unknown [id number] 1959 Unknown [id number] Social History Date Type Detail Facility Tobacco smoking stat [facility] Tobacco smoking consumption unknown [facility] Start: 06-22-2023 End: 06-29-2023 History of Social function [facility] Start: 06-22-2023 End: 06-29-2023 Humiliation, Afraid, Rape, and Kick questionnaire [HARK] [facility] Within the last year , have you been afraid of your partner or ex-partner? No [facility] Do you belong to any clubs or organizations such as anabaptist groups, unions, fraternal or athletic groups, or [...] [facility] Start: 06-29-2023 Tobacco smoking status KYIS Smokes tobacco daily [facility] History of tobacco use Cigarette Smoker [facility] Start: 06-29-2023 Tobacco use and exposure Smokeless tobacco non-user [facility] Start: 06-29-2023 Alcohol intake Ex-drinker (finding) [facility] Start: 06-29-2023 Alcohol Comment caffine: coffee 2-3 daily [facility] Start: 08-14-2023 Tobacco smoking status Heavy tobacco smoker (finding) [facility] Functional Status Date Assessment Result Facility 08-14-2023 Functional Status N/A [facility] Evaluation + Plan note 08-14-2023 Note Date & Type Note Facility 08-14-2023 Evaluation + Plan note Diagnostic Tests PendingBUN 08/14/23CBC w/ Auto Diff 08/14/23Creatinine 08/14/23Electrolyte Panel 08/14/23PT & PTT 08/14/23 [facility] Hospital Discharge instructions 08-14-2023 Note Date [...] including vitamins, herbs, eye drops, creams, and hklk-qqr-hxuqecz medicines. Any problems you or family members [...] provider tells you to take them. Taking faou-uub-qznpkcj medicines, vitamins, herbs, and supplements. Tests You [...] Follow these instructions at home: Medicines Take zajd-ewb-uykxztg and prescription medicines only as told by [...] provider. Document Revised: 01/26/2022 Document Reviewed: 12/25/2020 [employer] Patient Education 2022 [employer] 08/14/2023 10:56:32 Steps to Quit Smoking [...] require a prescription. You can also purchase glth-qdf-lysjdue medicines. Medicines may have nicotine in them [...] and encouragement. Call telephone quitlines, such as 3-213-UNZZ-NOW, reach out to support groups, or work [...] provider. Document Revised: 05/06/2022 Document Reviewed: 05/06/2022 [employer] Patient Education 2022 [employer] Follow Up Care 08/08/2023 14:04:41 With:FANNY MILLER, Abdifatah Sheppard, URL Address: [facility] [address] [place] [id number]- When: Unknown Comments:sched cysto/L ESWL [facility] History of Present illness Narrative 06-29-2023 Lizeth [...] original note were not included. Julieta Finch is a 58 y.o. male presents with [...] being taken. 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 Hypertension This is a [...] 40 MG tablet documented in this encounter [facility] Evaluation note Note Date & Type Note Facility Evaluation note Diagnosis Hypertension, benign (CMS/HCC)- Primary Essential hypertension, benign Hematuria, microscopic Microscopic hematuria Prediabetes Other abnormal glucose BMI 32.0-32.9,adult Hypertriglyceridemia (CMS/HCC) Pure hyperglyceridemia Tobacco dependence Tobacco use disorder Screening for prostate cancer Special screening for malignant neoplasm of prostate Essential (primary) hypertension (CMS/HCC) Unspecified essential hypertension documented in this encounter [facility] Hospital course Narrative Note Date & Type Note Facility Hospital course Narrative No data available for this section [facility] Progress note Note Date & Type Note Facility Progress note No data available for this section [facility] Summary Purpose Family History No Family [...] content) DATE CREATED AUTHOR 11/21/2017 [facility] DATE CREATED AUTHOR AUTHOR'S ORGANIZ ATION 06/06/2019 [facility] DATE CREATED AUTHOR AUTHOR'S ORGANIZ ATION 06/25/2022 [facility] pital DATE CREATED AUTHOR AUTHOR'S ORGANIZ ATION 07/01/2023 [facility] EPIC DATE CREATED AUTHOR AUTHOR'S ORGANIZ ATION 08/22/2023 [facility] Care Teams (unrecognized sec tion and content) Hydro Generation Supervisor Relationship Specialty Start Date End Date Lloyd Garrison MD [address] [place] [phone] PCP - General Family Medicine 06/23/23 Lizeth Van NP [address] [place] [phone] Referring Physician Nurse Practitioner 12/12/22 [employer] Supervisor Relationship Specialty Start Date End Date Lloyd Garrison MD [address] [phone] PCP - General Family Medicine 06/23/23 Lizeth Van NP [address] [place] [phone] Referring Physician Nurse Practitioner 12/12/22 [employer] Supervisor Relationship Specialty Start Date End Date Lloyd Garrison MD [address] [place] [address] PCP - General Family Medicine 06/23/23 Lizeth Van NP [address] [place] [phone] Referring Physician Nurse Practitioner 12/12/22 FOR RECORDS [...] BE BASED ON THE PRIMARY CLINICAL RECORDS. [facility] [employer] provides no warranty or guarantee of the accuracy or completeness of information in this document.
--- NOTE | 2023-09-04 12:27 | XR_ITS ---
The [address] [address] Patient Name: JULIETA LIZARRAGA MRN: [id number] date: 1965 Sex: M Assigned Patient Location: LAB Current Patient Location: Accession/Order Number: [id number] Exam Date: 09/04/2023 12:28 Report Date: 09/05/2023 07:15 At the request of: LOC ESCOBEDO Procedure: XR abdomen 1V EXAMINATION: XR abdomen 1V HISTORY: Kidney Stone, N20.0 COMPARISON: 08/18/2023 FINDINGS: KIDNEY/URETER - RIGHT: No visible renal or ureteral calcifications. KIDNEY/URETER - LEFT: Interval changing configuration of nephrolithiasis consistent with interval lithotripsy. Left ureteral stent in normal position PELVIS: No visible ureteral calcifications. Any visible calcifications favor phleboliths. BOWEL: No abnormal dilation or deviation. BONES: No acute abnormality. OTHER: Negative. No abnormal gaseous collections. XR/XR abdomen 1V IMPRESSION: Interval left lithotripsy with left nephrolithiasis and normal position of the ureteral stent Electronically authenticated by: FINA GAMEZ Date: 09/05/2023 07:15
== END 2023-09-04 12:21 | disposition home or self-care (01) ==
LOC: LAB 12:21
PROVIDERS: PCP Nurse Practitioner; Visit Provider Urology
DX: N20.0 Calculus of kidney (principal)
CPT/HCPCS: 74018